=== PATIENT | female | born 1985 | race Caucasian/White ===

== ENCOUNTER → 2017-12-29 13:58 | Outpatient (CLI) | payer MEDICAID, SELFPAY ==
--- NOTE | 2017-12-29 14:07 | RAD_ITS ---
STUDY: X-RAY - LUMBAR SPINE REASON FOR EXAM: Female, 32 years old. Trauma 3-4 weeks ago, low back pain TECHNIQUE: 6 view(s) of the lumbar spine were obtained. COMPARISON: None FINDINGS: Normal lumbar lordosis. There is no substantial scoliosis. There is a normal alignment of the vertebrae. Normal vertebral bodies and endplates. Normal disc space heights. The soft tissue structures are unremarkable. RAD/L/S Spine Min 4 Views IMPRESSION: Normal x-ray examination of the lumbar spine. Electronically Signed: Herman Ty MD at 22:12 EDT , Service support ,
== END ==
PROVIDERS: Family Provider Family Medicine; PCP Family Medicine; Visit Provider Anesthesiology Pain Medicine
DX: M54.5 Low back pain (principal); M79.604 Pain in right leg; W19.XXXA Unspecified fall, initial encounter
CPT/HCPCS: 72110

== ENCOUNTER → 2018-02-09 13:43 | Outpatient (CLI) | payer MEDICAID, SELFPAY ==
--- NOTE | 2018-02-09 13:54 | MRI_ITS ---
STUDY: MRI LUMBAR SPINE WITHOUT CONTRAST REASON FOR EXAM: Female, 32 years old. Low back pain and radiating to right leg TECHNIQUE: Standardized fat and water weighted pulse sequences were obtained in the sagittal and axial planes. COMPARISON: None FINDINGS: T12-L1: Normal endplates. Normal disc height, hydration and morphology. Normal bilateral facet joints. Normal central canal and bilateral lateral recesses. Normal bilateral intervertebral neural foramina. Normal lumbar lordosis. There is no substantial scoliosis. Normal conus medullaris that terminates at T12-L1 L1-2: Normal endplates. Normal disc height, hydration and morphology. Normal bilateral facet joints. Normal central canal and bilateral lateral recesses. Normal bilateral intervertebral neural foramina. L2-3: Normal endplates. Normal disc height, hydration and morphology. Normal bilateral facet joints. Normal central canal and bilateral lateral recesses. Normal bilateral intervertebral neural foramina. L3-4: Normal endplates. Normal disc height, hydration and morphology. Normal bilateral facet joints. Normal central canal and bilateral lateral recesses. Normal bilateral intervertebral neural foramina. L4-5: Normal endplates. Normal disc height, hydration and morphology. Bilateral facet arthropathy.. Normal central canal and bilateral lateral recesses. Normal bilateral intervertebral neural foramina. L5-S1: Normal endplates. Normal disc height, desiccation and mild annular bulge in association with a broad-based small central disc protrusion mildly displacing the descending nerve roots bilaterally.. Bilateral facet arthropathy.. Mildly narrowed central canal Mild bilateral recess stenosis normal bilateral intervertebral neural foramina. Normal visualized sacral ala. Normal visualized paraspinous soft tissue structures. MRI/Spine Lumbar (Routine) IMPRESSION: Mild spinal stenosis at L5-S1 secondary to mild annular bulge and small broad-based central disc protrusion mildly displacing the descending S1 nerve roots in association with facet arthropathy.. Electronically Signed: Lonnie Wolff MD at 16:01 EDT , Service support ,
== END ==
PROVIDERS: Family Provider Family Medicine; PCP Family Medicine; Visit Provider Anesthesiology Pain Medicine
DX: M51.26 Other intervertebral disc displacement, lumbar region (principal); M54.17 Radiculopathy, lumbosacral region; M51.36 Other intervertebral disc degeneration, lumbar region; M48.07 Spinal stenosis, lumbosacral region; M79.604 Pain in right leg
CPT/HCPCS: 72148

== ENCOUNTER → 2019-02-04 13:26 | Outpatient (CLI) | payer MEDICAID, SELFPAY ==
--- NOTE | 2019-02-04 13:35 | VDLE_ITS ---
Reason For Study: Pain in left calf Procedure LEFT Exam performed in department. GSV is normal. A preliminary report was called and/or faxed CFV is compressible, spontaneous, phasic, to [place]nam[place]. competent, and demonstrates normal augmentation. FV is compressible, spontaneous, phasic, competent and demonstrates normal augmentation. POP V is compressible, spontaneous, phasic, competent and demonstrates normal augmentation. T/P Trunk is compressible. PTV is compressible. LT PerV is compressible. Interpretation Summary Deep veins of the left lower extremity are patent and compressible segmentally. There is no evidence of left lower extremity deep vein thrombosis. Valvular competence appears intact within the proximal deep venous system on the left . The left greater saphenous vein appears patent and compressible segmentally. Ordering Physician: Haritha Yin Referring Physician: MD Marquise Breaux Performed By: Elisa Romero RVT
== END ==
PROVIDERS: Family Provider Family Medicine; PCP Family Medicine; Referring Provider Physician Assistant; Visit Provider Physician Assistant
DX: M79.662 Pain in left lower leg (principal)
CPT/HCPCS: 93971

== ENCOUNTER → 2023-07-16 | Outpatient (CLI) | payer OTHER, SELFPAY ==
--- NOTE | 2023-07-16 10:06 | MRI_ITS ---
MRI/Spine Lumbar W/WO Contrast IMPRESSION: No evidence for acute fracture or other significant bony pathology. Postsurgical changes at L5-S1 Facet arthropathy at L3-4 and L4-5. No significant disc protrusion or spinal stenosis No enhancing lesions following contrast administration Electronically Signed: Lnonie Wolff MD at 20:31 EDT ,
== END | disposition home or self-care (01) ==
LOC: MRI 09:53
PROVIDERS: Referring Provider Orthopaedic Surgery; Visit Provider Orthopaedic Surgery
DX: Z98.1 Arthrodesis status (principal)
CPT/HCPCS: 72158; A9575

== ENCOUNTER → 2025-08-03 | Outpatient (CLI) | payer OTHER, SELFPAY ==
[2025-08-03 10:26] LABS: Hematocrit 45.6 % (37-47); Hemoglobin 16.0 g/dL (12.0-15.0); Immature Granulocytes Count 0.010 X10^3/uL (0.0-0.0); Mean Corp Hgb Conc 35.1 g/dL (32-36); Mean Corpuscular Volume 88.4 fL (81-99); Mean Platelet Vol. 9.4 fl (6.2-12.0); NRBC Flagged by Analyzer 0 % (0-5); Platelet Count 254 K/mm3 (150-450); RBC Distribution Width CV 12.1 % (11.6-14.6); RBC Distribution Width SD 39.2 fl (35.1-43.9); Red Blood Count 5.16 M/mm3 (4.2-5.4); White Blood Count 8.0 K/mm3 (4.4-11.0)
[2025-08-03 11:12] LABS: Barbiturate Urine NEGATIVE (< 200 ng/mL); Benzodiazepine Urine NEGATIVE (< 200 ng/mL); PCP Urine NEGATIVE (< 25 ng/mL); THC Urine NEGATIVE (< 50 ng/mL)
[2025-08-03 11:15] LABS: AST(SGOT) 22 U/L (<=31); Alanine Aminotransfer ALT/SGPT 24 U/L (<=34); Albumin, Serum 4.4 g/dL (3.5-5.0); Alkaline Phosphatase 69 U/L (35-104); Anion Gap 10 (5-15); BUN 7 mg/dL (4-19); BUN/Creat Ratio 8.7 RATIO (10-20); Calcium,Total 9.3 mg/dL (7.6-11.0); Carbon Dioxide 24.5 mmol/L (21.0-32.0); Chloride 105 mmol/L (98-108); Globulin 2.8 g/dL (2.2-4.2); Glucose 102 mg/dL (70-99); Potassium 4.1 mmol/L (3.3-5.1); Vitamin B12 838 pg/mL (180-914)
[2025-08-03 11:16] LABS: CRP < 3.00 mg/L (0.0-3.0); Magnesium 2.3 mg/dL (1.5-2.2)
[2025-08-04 16:09] LABS: Folate, Hemolysate Test 305.0 ng/mL (Not Estab.); Folate, RBC (Hct) Test 48.3 % (34.0-46.6); Folates, RBC Test 631 ng/mL (>498)
[2025-08-07 14:09] LABS: ANTINUCLEAR ANTIBODIES DIRECT Negative (Negative); Vitamin D 1,25-Dihydroxy 31.1 pg/mL (24.8-81.5)
== END | disposition home or self-care (01) ==
LOC: MTLAB 09:13
DX: R40.4 Transient alteration of awareness (principal); R41.3 Other amnesia; M79.7 Fibromyalgia; G43.909 Migraine, unspecified, not intractable, without status migrainosus
CPT/HCPCS: 36415; 80053; 80307; 82607; 82652; 82747; 83605; 83735; 84443; 85014; 85025; 85652; 86038; 86140; 86225

== ENCOUNTER → 2025-08-04 | Outpatient (CLI) | payer OTHER, SELFPAY ==
--- NOTE | 2025-08-04 08:49 | BI_ITS ---
EXAM: DIAG MAMM W/CAD, BILAT; BREAST LIMITED UNILATERAL; BILAT BRST SARABJIT STAND ALONE 08/04/2025 CLINICAL HISTORY: F, Age 40 y/o , ABD MAMM; PAIN TECHNIQUE: Procedure Code: [id number]; USBRSTLIMIT; BIBILATBRTOM Modality: MG; US Procedure: DIAG MAMM W/CAD, BILAT; BREAST LIMITED UNILATERAL; BILAT BRST SARABJIT STAND ALONE. COMPARISON: Baseline examination, no priors. FINDINGS: MAMMOGRAM: TISSUE DENSITY: There are scattered areas of fibroglandular density. Bilateral Breast Mammographic Findings: The patient presents with pain in the lateral breast bilaterally. On the present examination, there are no suspicious mammographic findings in the lateral breast bilaterally to account for the patient's pain. Otherwise, there are no significant masses, calcifications or other abnormalities are identified. ULTRASOUND: Ultrasound performed of the lateral breast bilaterally demonstrate no suspicious sonographic findings in the area of patient's pain. There are no suspicious masses or abnormal cystic elements. BI/Bilat Brst Sarabjit Stand Alone IMPRESSION: There are no suspicious mammographic or sonographic findings in the area of pat ient's pain bilaterally. Clinical management is recommended for the pain. There is no evidence of malignancy in either breast. OVERALL FINAL ASSESSMENT BI-RADS 1: NEGATIVE RECOMMENDATION: Routine annual follow-up in 1 Year Additional Recommendation none A letter with findings and recommendations will be mailed to the patient. Reading Location: [id number]
--- NOTE | 2025-08-04 08:49 | BI_ITS ---
EXAM: DIAG MAMM W/CAD, BILAT; BREAST LIMITED UNILATERAL; BILAT BRST SARABJIT STAND ALONE 08/04/2025 CLINICAL HISTORY: F, Age 40 y/o , ABD MAMM; PAIN TECHNIQUE: Procedure Code: [id number]; USBRSTLIMIT; BIBILATBRTOM Modality: MG; US Procedure: DIAG MAMM W/CAD, BILAT; BREAST LIMITED UNILATERAL; BILAT BRST SARABJIT STAND ALONE. COMPARISON: Baseline examination, no priors. FINDINGS: MAMMOGRAM: TISSUE DENSITY: There are scattered areas of fibroglandular density. Bilateral Breast Mammographic Findings: The patient presents with pain in the lateral breast bilaterally. On the present examination, there are no suspicious mammographic findings in the lateral breast bilaterally to account for the patient's pain. Otherwise, there are no significant masses, calcifications or other abnormalities are identified. ULTRASOUND: Ultrasound performed of the lateral breast bilaterally demonstrate no suspicious sonographic findings in the area of patient's pain. There are no suspicious masses or abnormal cystic elements. BI/DIAG MAMM W/CAD, BILAT IMPRESSION: There are no suspicious mammographic or sonographic findings in the area of pat ient's pain bilaterally. Clinical management is recommended for the pain. There is no evidence of malignancy in either breast. OVERALL FINAL ASSESSMENT BI-RADS 1: NEGATIVE RECOMMENDATION: Routine annual follow-up in 1 Year Additional Recommendation none A letter with findings and recommendations will be mailed to the patient. Reading Location: [id number]
--- NOTE | 2025-08-04 10:07 | US_ITS ---
EXAM: DIAG MAMM W/CAD, BILAT; BREAST LIMITED UNILATERAL; BILAT BRST SARABJIT STAND ALONE 08/04/2025 CLINICAL HISTORY: F, Age 40 y/o , ABD MAMM; PAIN TECHNIQUE: Procedure Code: [id number]; USBRSTLIMIT; BIBILATBRTOM Modality: MG; US Procedure: DIAG MAMM W/CAD, BILAT; BREAST LIMITED UNILATERAL; BILAT BRST SARABJIT STAND ALONE. COMPARISON: Baseline examination, no priors. FINDINGS: MAMMOGRAM: TISSUE DENSITY: There are scattered areas of fibroglandular density. Bilateral Breast Mammographic Findings: The patient presents with pain in the lateral breast bilaterally. On the present examination, there are no suspicious mammographic findings in the lateral breast bilaterally to account for the patient's pain. Otherwise, there are no significant masses, calcifications or other abnormalities are identified. ULTRASOUND: Ultrasound performed of the lateral breast bilaterally demonstrate no suspicious sonographic findings in the area of patient's pain. There are no suspicious masses or abnormal cystic elements. US/Breast Limited Unilateral IMPRESSION: There are no suspicious mammographic or sonographic findings in the area of pat ient's pain bilaterally. Clinical management is recommended for the pain. There is no evidence of malignancy in either breast. OVERALL FINAL ASSESSMENT BI-RADS 1: NEGATIVE RECOMMENDATION: Routine annual follow-up in 1 Year Additional Recommendation none A letter with findings and recommendations will be mailed to the patient. Reading Location: [id number]
== END | disposition home or self-care (01) ==
LOC: OPBI 08:44
DX: R92.8 Other abnormal and inconclusive findings on diagnostic imaging of breast (principal); N64.4 Mastodynia
CPT/HCPCS: 76642; 77062; 77066; G0279

== ENCOUNTER → 2025-08-21 | Outpatient (CLI) | payer OTHER, SELFPAY | END | disposition home or self-care (01) | LOC: PSN 07:56 | DX: R41.3 Other amnesia (principal); R40.4 Transient alteration of awareness | CPT/HCPCS: 95819 ==

== ENCOUNTER → 2025-08-22 | Outpatient (CLI) | payer OTHER, SELFPAY ==
--- NOTE | 2025-08-22 06:41 | MRI_ITS ---
PROCEDURE: BRAIN W/WO CONTRAST 08/22/2025 REASON FOR EXAM: STARING EPISODES, MEMORY CHANGE TECHNIQUE: Procedure Code: [id number] Modality: MR Procedure: BRAIN W/WO CONTRAST Multiplanar and multisequence images were obtained. CONTRAST: Clariscan VOLUME: 70 mL COMPARISON: None. FINDINGS: Brain: Two or three foci of hyperintense signal on T2 and FLAIR in the right frontal lobe which are nonspecific. No restricted diffusion. No hemorrhage. No masses. No abnormal enhancement. The medial temporal lobes are within normal limits. No evidence of mesial temporal sclerosis. The craniocervical junction is unremarkable. The orbits are within normal limits. Diffusion: No restricted diffusion Ventricles: No ventriculomegaly. Major Intracranial Vessels: Patent. Sinuses: Clear. Mastoids: Clear. MRI/Brain W/WO Contrast IMPRESSION: Two or three foci of hyperintense signal on T2 and FLAIR in the right frontal l obe which are nonspecific. The differential diagnosis includes but not exclusive to vasculitis, chronic sm all-vessel ischemia, migraines, infection or demyelinating disease. No restricted diffusion. No hemorrhage. No masses. No abnormal enhancement. Reading Location: [facility]
--- OUTSIDE RECORDS SUMMARY | 2025-08-22 07:07 | XMS RPT_ITS | CCD ---
Author Organization [facility] Care Team Providers Care Business Continuity Management Director Name Role Phone Lindsay'CHIKA, HIRA Attending Unavailable D'CHIKA, HIRA Referring Unavailable D'CHIKA, HIRA Attending Unavailable D'CHIKA, HIRA Referring Unavailable Gregory Mcguire Attending Unavailable PROVIDER, UNKNOWN Referring Unavailable Adams Oh Primary Care Unavailable Gregory Mcguire Attending Unavailable PROVIDER, UNKNOWN Referring Unavailable Adams Oh Primary Care Unavailable Jeane TYSON, Hortensia Monzon Unavailable [phone] Dr. Dwayne Christopher MD Unavailable Pain Management Provider Unavailable Unavail able Physical Therapy, Tk Brewer Unavailable Dr. Aris Gonzalez MD Unavailable Dr. Jaden Hawk MD Unavailable Dr. Sean Reynoso MD Unavailable [phone] [place] Unavailable Cecil TYSON, Dr. Hortensia Herring Unavailable Jeffrey Eason MD Unavailable Contract Implementation Analyst/Gynecology Prov. Unavailable Un available Neurology Provider Unavailable Unavailable Moon TYSON, Suma Garcia Unavailable Cornell PIMENTEL, Jigna Unavailable Masoud VELAZQUEZ, Khushbu Sloan Unavailable [phone] Shabbir PIMENTEL, Sadaf Unavailable Unavailable Marty TYSON, Willy Ruffin Unavailable Gale Banda MA Unavailable Unavailable Gogoi (scribe), Hemanta Unavailable Unavaila eben Robles LPN, Hira Unavailable Unavailable Adams Oh MD Unavailable Preethi Burt MA Unavailable Unavailable EVENT DECORATOR AND DESIGNER-C, Chace Khan Unavailable Maria LUEVANO, Vielka Monzon Unavailable Unavaila ble Marthey ENVIRONMENTAL COMPLIANCE TECHNICIAN, Ve Unavailable Unavailable Carlos (Scribe), Grant Unavailable Unavailab lino Reynoso RN, Sabrina Unavailable Mutersbaugh ENVIRONMENTAL COMPLIANCE TECHNICIAN, Olga K Unavailable Unavai filomena English PA-C, Mery J Unavailable Dg (Scribe), Pedro Unavailable Unavailab le Richert ENVIRONMENTAL COMPLIANCE TECHNICIAN, Yecenia Zuleyka Unavailable Unavailab le Sisi ENVIRONMENTAL COMPLIANCE TECHNICIAN, Suma Herring Unavailable Unavailab le Liseth ENVIRONMENTAL COMPLIANCE TECHNICIAN, Prachi Charles Unavailable Unavailab le Vess ENVIRONMENTAL COMPLIANCE TECHNICIAN, Jose L Unavailable Unavailable Wengerd ENVIRONMENTAL COMPLIANCE TECHNICIAN, Lucrecia Unavailable Unavailabl e Carmen ENVIRONMENTAL COMPLIANCE TECHNICIAN, Candy Grant Unavailable Unavaila ble Unavailable Unavailable Marco Antonio CRUZ, Nora Unavailable Unavailable Meredith, Khushbu Primary Care Unavailable Matilda Ochoa Attending Unavailable Matilda Ochoa Referring Unavailable Meredith, Khushbu Primary Care Unavailable Matilda Ochoa Attending Unavailable NeridnerMatilda Referring Unavailable Meredith, Khushbu Referring Unavailable BordnerMatilda Attending Unavailable Meredith, Khushbu Primary Care Unavailable Meredith, Khushbu Referring Unavailable Martin Almodovar Attending Unavailable Meredith, Khushbu Primary Care Unavailable Meredith, Khushbu Primary Care Unavailable Meredith, Khushbu Attending Unavailable Meredith, Khushbu Referring Unavailable Meredith, Khushbu Primary Care Unavailable NeridnMatilda pierre Attending Unavailable NeridnerMatilda Referring Unavailable Allergies Allergy Classification Reported Allergen(s) Allergy Type Date of Onset Reaction(s) Facility (13 sources) Amoxicillin / Clavulanate Drug Allergy Soft Tissue Regeneration [facility], [facility] (13 sources) Cephalexin Drug Allergy [facility] (3 sources) Shellfish [facility] (1 source) [facility] (1 source) [facility] (1 source) [facility] (1 source) [facility] (1 source) [employer] [facility] (1 source) [facility] [facility] [employer] (1 source) [employer] [employer] (1 source) [employer] (1 source) [employer] (1 source) [employer] (1 source) Amoxicillin Drug Allergy 5 [facility] (1 source) Cephalexin Drug Allergy 5 [facility] (1 source) Clavulanate Drug Allergy 5 [facility] (1 source) Shellfish Drug allergy (disorder) 5 [facility] (1 source) Seasonal Allergies: Uncoded; Translations: [Seasonal Allergies: Uncoded] Propensity to adverse reactions (disorder) 5 [facility] Medications Current Medications Medication Drug Class(es) Dates Sig (Normalized) Sig (Original) [id number] 200 actuat albuterol 0.09 mg/actuat metered dose inhaler (20 sources) beta2-Adrenergic Agonist Start: 12-28-2024 Start: 02-24-2023 Ventolin HFA 1 08 (90 Base) MCG/ACT Inhalation Aerosol Solution ; 1 (one) Aerosol Soln 2 puffs every four hours as needed for 0 days Quantity: 1 {Each} Refills: 11 Ordered: 24-Feb-2023 MARCUS Meredith Start: 24-Feb-2023 Comments: Medication taken as needed. 1 inhaler Start: 04-09-2015 End: 04-09-2015 Start: 04-09-2015 End: 04-09-2015 PROVENTIL HFA, 108 (90 Base) MCG/ACT (Inhalation Aerosol Solution) ; 2 (two) Aerosol Soln q4h, prn for 0 days Quantity: 1 {Inhaler} Refills: 5 Ordered: 09-Apr-2015 LOREN Sarabia Start: 09-Apr-2015 End: 09-Apr-2015 Status: Discontinued Comment on above: Medication taken as needed. 1 inhaler Completed/Discontinued Medications Medication Drug Class(es) Dates Sig (Normalized) Sig (Original) 8 hr acetaminophen 650 mg extended release oral tablet (16 sources) Start: 06-09-2017 End: 03-16-2018 acetaminophen 325 mg / HYDRO codone bitartrate 5 mg oral tablet (20 sources) Opioid Agonist Start: 07-23-2023 End: 01-08-2024 Start: 07-23-2023 End: 01-08-2024 HYDROcodone 5 mg-acetaminoph en 325 mg tablet ; 1 (one) Tablet q4-6h, prn severe pain for 0 days Quantity: 10 {Tablet} Refills: 0 Ordered: 08-Jan-2024 LOREN Sarabia Start: 23-Jul-2023 End: 08-Jan-2024 Status: Discontinued Comments: Faiza Cervantes Start: 05-21-2015 End: 06-20-2015 Start: 05-21-2015 End: 06-20-2015 take 1 tablet by mouth every four hours as needed for pain HYDROCODONE-ACETAMINOPHEN, 5-325MG (Oral Tablet) ; 1 (one) Tablet q4h, prn severe pain for 0 days Quantity: 20 {Tablet} Refills: 0 Ordered: 20-Jun-2015 MD Hortensia Ching Start: 21-May-2015 End: 20-Jun-2015 Status: Inactive Comments: carlito 05/21/15patient moss picker rx Comment on above: oacharlis 05/21/15patient moss picker rx Medication taken as needed. prescribed by Dr. Jesus Cervantes acetaminophen 325 mg / oxyCODONE hydrochloride 5 mg oral tablet (13 sources) Opioid Agonist Start: 04-27-2014 End: 06-08-2014 Start: 04-27-2014 End: 06-08-2014 take 1 tablet by mouth every four hours as needed for pain OXYCODONE-ACETAMINOPHEN, 5-325MG (Oral Tablet) ; 1 (one) Tablet every four hours PRN severe pain for 0 days Quantity: 12 {Tablet} Refills: 0 Ordered: 08-Jun-2014 LOREN Shannon Start: 27-Apr-2014 End: 08-Jun-2014 Status: Inactive ALPRAZolam 0.5 mg oral table t (13 sources) Benzodiazepine Start: 03-03-2023 End: 04-28-2023 Comment on above: Medication taken as needed. No OARRS - acute treatment amitriptyline hydrochloride 25 mg oral tablet (13 sources) Tricyclic Antidepressant Start: 12-28-2018 End: 12-14-2020 amoxicillin 500 mg oral tabl et (13 sources) Penicillin-class Antibacterial Start: 08-17-2015 End: 08-27-2015 Antipyrine / Benzocaine (13 sources) Standardized Chemical Allergen Start: 06-08-2014 End: 10-23-2014 Start: 06-08-2014 End: 10-23-2014 ANTIPYRINE-BENZOCAINE, 5.4-1 .4% (Otic Solution) ; 2-4 Drop(s) Drop(s) Four times daily as needed for ear pain for 10 days Quantity: 5 {Milliliter} Refills: 1 Ordered: 23-Oct-2014 LOREN Sarabia Start: 08-Jun-2014 End: 23-Oct-2014 Status: Inactive Comments: Medication taken as needed. Comment on above: Medication taken as needed. aspirin 325 mg / butalbital 50 mg / caffeine 40 mg oral capsule (13 sources) Platelet Aggregation Inhibitor, Barbiturate, Nonsteroidal Anti-inflammatory Drug, Central Nervous System Stimulant, Methylxanthine Start: 11-14-2015 End: 02-20-2016 Start: 11-14-2015 End: 02-20-2016 take 1 capsule by mouth every two hours FIORINAL, 50-325-40MG (Oral Capsule) ; 1 (one) Capsule at onset of headache, repeat in 2 hrs in needed. for 0 days Quantity: 30 {Capsule} Refills: 0 Ordered: 20-Feb-2016 LOREN Sarabia Start: 14-Nov-2015 End: 20-Feb-2016 Status: Inactive Comments: Maximum 6 in 24 hoursWM Comment on above: Maximum 6 in 24 hour sWM Azithromycin (20 sources) Macrolide Antimicrobial Start: 07-06-2023 End: 01-08-2024 Start: 07-06-2023 End: 01-08-2024 Zithromax Z-Dante 250 mg table t ; 2 (two) Tabs day one, then one daily for 4 days for 0 days Quantity: 1 {Packet} Refills: 0 Ordered: 08-Jan-2024 LOREN Sarabia Start: 06-Jul-2023 End: 08-Jan-2024 Status: Inactive Start: 05-17-2018 End: 05-20-2018 Start: 08-22-2014 End: 09-14-2014 Start: 09-16-2010 End: 10-14-2010 Start: 09-16-2010 End: 10-14-2010 ZITHROMAX Z-DANTE, 250MG (Oral Tablet) ; 2 (two) Tabs day one, then one daily for 4 days for 0 days Quantity: 1 {Z-pack} Refills: 0 Ordered: 14-Oct-2010 LOREN Sarabia Start: 16-Sep-2010 End: 14-Oct-2010 Status: Inactive baclofen 10 mg oral tablet (13 sources) gamma-Aminobutyric Acid-ergic Agonist breath-actuated 120 actuat beclomethasone dipropionate 0.08 mg/actuat metered dose inhaler (13 sources) Corticosteroid End: 12-30-2010 End: 12-30-2010 take 2 puff(s) by inhalation once daily QVAR, 80MCG/ACT (Inhalation Aerosol Solution) ; 2 puffs daily (80 MCG/ACT) End: 30-Dec-2010 Status: Discontinued bifidobacterium animalis 160 [id number] unt / lactobacillus acidophilus [id number] unt oral capsule (13 sources) Start: 03-16-2018 End: 10-19-2018 Start: 03-16-2018 End: 10-19-2018 take 1 capsule by mouth twice daily at mealtime Probiotic Oral Capsule ; 1 (one) Capsule Capsule two times daily with meals for 0 days Quantity: 1 {Box} Refills: 5 Ordered: 19-Oct-2018 CHLOÉ Sifuentes Start: 16-Mar-2018 End: 19-Oct-2018 Status: Inactive Comments: If not covered by insurance, recommend low cost OTC option Comment on above: If not covered by in surance, recommend low cost OTC option 24 hr buPROPion hydrochlorid e 150 mg extended release oral tablet (20 sources) Aminoketone Start: 10-19-2018 End: 12-14-2020 Start: 11-04-2013 End: 06-08-2014 Comment on above: Note to pharmacist: lowering bupropion dose to add escitalopram cetirizine hydrochloride 10 mg oral tablet (20 sources) Histamine-1 Receptor Antagonist Start: 02-02-2018 End: 10-19-2018 Start: 12-10-2015 End: 04-09-2017 cholecalciferol 0.01 mg oral tablet (13 sources) Vitamin D Start: 02-02-2018 End: 05-23-2021 ciprofloxacin 250 mg oral ta blet (20 sources) Quinolone Antimicrobial Start: 07-01-2021 End: 07-11-2021 Start: 02-25-2019 End: 03-07-2019 Start: 09-21-2017 End: 09-24-2017 Start: 05-12-2017 End: 05-17-2017 citalopram 20 mg oral tablet (13 sources) Serotonin Reuptake Inhibitor Start: 11-16-2012 End: 10-31-2013 clindamycin 300 mg oral caps ule (13 sources) Lincosamide Antibacterial Start: 09-30-2016 End: 10-10-2016 clomiPHENE citrate 50 mg ora l tablet (13 sources) Estrogen Agonist/Antagonist Start: 06-21-2010 End: 06-26-2010 codeine phosphate 2 mg/ml / promethazine hydrochloride 1.25 mg/ml oral solution (13 sources) Opioid Agonist, Phenothiazine Start: 02-25-2019 End: 04-11-2019 Start: 02-25-2019 End: 04-11-2019 take 1 mL by mouth once daily at bedtime Promethazine-Codeine 6.25-10 MG/5ML Oral Syrup ; 10(ten) Milliliter qhs for 0 days Quantity: 70 {Milliliter} Refills: 0 Ordered: 11-Apr-2019 LOREN Childers Prachi Charles Start: 25-Feb-2019 End: 11-Apr-2019 Status: Inactive Comments: Causes drowsinessDo not drive within 4 hours of dose Comment on above: Causes drowsinessDo not drive within 4 hours of dose cyclobenzaprine hydrochlorid e 10 mg oral tablet (20 sources) Muscle Relaxant Start: 05-23-2021 End: 07-01-2021 Start: 07-03-2016 End: 11-20-2016 Comment on above: may cause drowsiness dicyclomine hydrochloride 10 mg oral capsule (13 sources) Anticholinergic Start: 07-21-2014 End: 10-23-2014 diphenhydrAMINE (13 sources) Histamine-1 Receptor Antagonist Benadryl Allergy ; 2 two times daily Status: Inactive doxycycline hyclate 100 mg oral capsule (13 sources) Tetracycline-class Drug Start: 10-25-2012 End: 11-01-2012 DULoxetine 30 mg delayed release oral capsule (20 sources) Serotonin and Norepinephrine Reuptake Inhibitor Start: 07-30-2017 End: 10-19-2018 Start: 05-12-2014 End: 10-23-2014 Comment on above: Note to pharmacist: new dosage, cancel old 20mg escitalopram 10 mg oral tabl et (13 sources) Serotonin Reuptake Inhibitor Start: 10-19-2018 End: 12-14-2020 fexofenadine hydrochloride 1 80 mg oral tablet (13 sources) Histamine-1 Receptor Antagonist Start: 11-20-2016 End: 11-20-2016 fluconazole 150 mg oral tabl et (13 sources) Azole Antifungal Start: 05-29-2011 End: 06-30-2011 FLUoxetine 20 mg oral capsul e (13 sources) Serotonin Reuptake Inhibitor End: 12-30-2010 60 actuat fluticasone propionate 0.25 mg/actuat dry powder inhaler (20 sources) Corticosteroid Start: 10-23-2014 End: 04-09-2015 Start: 10-23-2014 End: 04-09-2015 FLOVENT DISKUS, 250MCG/BLIST (Inhalation Aerosol Powder Breath Activated) ; 1 (one) Aero Pow Br Act Aero Pow Br Act daily for 0 days Quantity: 1 {Disk} Refills: 11 Ordered: 09-Apr-2015 LOREN Sarabia Start: 23-Oct-2014 End: 09-Apr-2015 Status: Discontinued Start: 06-08-2014 End: 04-09-2015 gabapentin 100 mg oral capsu le (20 sources) Anti-epileptic Agent Start: 06-10-2018 End: 12-14-2020 End: 09-14-2015 End: 09-14-2015 take 1-2 capsules by mouth at bedtime GABAPENTIN, 400MG (Oral Capsule) ; 1-2 at bedtime (400 MG) End: 14-Sep-2015 Status: Discontinued Comments: neuro Comment on above: neuro hydrOXYzine pamoate 25 mg or al capsule (13 sources) Antihistamine End: 12-30-2010 hyoscyamine sulfate 0.125 mg oral tablet (13 sources) Start: 07-14-2016 End: 11-20-2016 ibuprofen 600 mg oral tablet (13 sources) Nonsteroidal Anti-inflammatory Drug Start: 12-30-2016 End: 04-09-2017 ketoconazole 20 mg/ml medica piotr shampoo (13 sources) Azole Antifungal Start: 10-01-2011 End: 01-29-2012 Start: 10-01-2011 End: 01-29-2012 KETOCONAZOLE, 2% (External S hampoo) ; 1 Shampoo twice weekly for 0 days Quantity: 6 {oz} Refills: 3 Ordered: 29-Jan-2012 LOREN Shannon Start: 01-Oct-2011 End: 29-Jan-2012 Status: Inactive lamoTRIgine 25 mg oral table t (20 sources) Mood Stabilizer, Anti-epileptic Agent Start: 04-27-2014 End: 04-27-2014 Start: 03-30-2014 End: 04-17-2014 levETIRAcetam 250 mg oral ta blet (13 sources) Start: 06-20-2015 End: 09-14-2015 magnesium citrate 58.2 mg/ml oral solution (13 sources) Start: 04-09-2017 End: 03-16-2018 malathion 5 mg/ml topical lo tion (13 sources) Start: 11-06-2016 End: 11-20-2016 Start: 11-06-2016 End: 11-20-2016 Malathion 0.5 % External Lot ion ; 1 (one) Lotion Lotion apply as directed for 0 days Quantity: 1 {Bottle} Refills: 0 Ordered: 20-Nov-2016 MD Hortensia Ching Start: 06-Nov-2016 End: 20-Nov-2016 Status: Discontinued meloxicam 15 mg oral tablet (20 sources) Nonsteroidal Anti-inflammatory Drug Start: 04-09-2015 End: 05-11-2015 take 1 tablet by mouth once daily MELOXICAM, 15MG (Oral Tablet) ; 1 Tablet daily for 0 days Quantity: 30 {Tablet} Refills: 5 Ordered: 11-May-2015 LOREN Sarabia Start: 09-Apr-2015 End: 11-May-2015 Status: Inactive methylPREDNISolone (13 sources) Corticosteroid Start: 11-11-2012 End: 11-17-2012 Start: 11-11-2012 End: 11-17-2012 MEDROL (DANTE), 4MG (Oral Tabl et) ; 1 Tablet as directed on pack for 6 days Quantity: 1 {dose_pack} Refills: 0 Ordered: 11-Nov-2012 Liseth, LOREN Prachi Charles Start: 11-Nov-2012 End: 17-Nov-2012 Status: Inactive nabumetone 500 mg oral table t (13 sources) Nonsteroidal Anti-inflammatory Drug Start: 04-11-2015 End: 06-20-2015 24 hr nicotine 0.583 mg/hr transdermal system (13 sources) Cholinergic Nicotinic Agonist Start: 10-14-2010 End: 05-29-2011 Start: 10-14-2010 End: 05-29-2011 apply 1 dose transdermal route once daily NICOTINE, 14MG/24HR (Transdermal Patch 24 Hour) ; 1 Patch 24HR daily for 0 days Quantity: 14 {Patch_24HR} Refills: 1 Ordered: 29-May-2011 LOREN Shannon Start: 14-Oct-2010 End: 29-May-2011 Status: Inactive ondansetron 4 mg oral tablet (13 sources) Serotonin-3 Receptor Antagonist Start: 11-04-2011 End: 01-29-2012 Start: 11-04-2011 End: 01-29-2012 take 1 tablet by mouth every four to six hours as needed for nausea ZOFRAN, 4MG (Oral Tablet) ; 1 Tablet every 4-6 hours as needed for nausea for 0 days Quantity: 15 {Tablet} Refills: 0 Ordered: 29-Jan-2012 LOREN Shannon Start: 04-Nov-2011 End: 29-Jan-2012 Status: Inactive Comments: Medication taken as needed. Comment on above: Medication taken as needed. oseltamivir 75 mg oral albinou le (13 sources) Neuraminidase Inhibitor Start: 11-02-2018 End: 12-28-2018 Polyethylene Glycols (13 sources) Start: 05-12-2017 End: 03-16-2018 Start: 05-12-2017 End: 03-16-2018 Polyethylene Glycol Powder ; 1 (one) capful capful daily for 0 days Quantity: 1 {Can} Refills: 5 Ordered: 16-Mar-2018 CHLOÉ Sifuentes Start: 12-May-2017 End: 16-Mar-2018 Status: Inactive pramipexole dihydrochloride 0.5 mg oral tablet (20 sources) Nonergot Dopamine Agonist Start: 02-02-2014 End: 10-23-2014 Start: 02-02-2014 End: 10-23-2014 take 1 tablet by mouth at bedtime PRAMIPEXOLE DIHYDROCHLORIDE, 0.5MG (Oral Tablet) ; 1 (one) Tablet Tablet at bedtime for 0 days Quantity: 30 {Tablet} Refills: 1 Ordered: 23-Oct-2014 LOREN Sarabia Start: 02-Feb-2014 End: 23-Oct-2014 Status: Inactive Start: 12-21-2013 End: 03-22-2014 Start: 12-21-2013 End: 03-22-2014 take 1 tablet by mouth at bedtime MIRAPEX, 0.25MG (Oral Tablet) ; 1 (one) Tablet Tablet at bedtime for 0 days Quantity: 30 {Tablet} Refills: 1 Ordered: 22-Mar-2014 LOREN Sarabia Start: 21-Dec-2013 End: 22-Mar-2014 Status: Inactive predniSONE 20 mg oral tablet (20 sources) Start: 07-06-2023 End: 01-08-2024 Start: 05-23-2021 End: 07-01-2021 Comment on above: Take 3tabs qd for 3 days thenTake 2tabs qd for 3 days thenTake 1tab qd for 3 days thenTake 1/2tab qd for 4 days. promethazine hydrochloride 2 5 mg rectal suppository (13 sources) Phenothiazine Start: 02-15-2013 End: 10-31-2013 Start: 02-15-2013 End: 10-31-2013 PROMETHAZINE HCL, 25MG (Rect al Suppository) ; 1 Suppository every six hours per rectum PRN nausea for 0 days Quantity: 12 {Suppository} Refills: 0 Ordered: 31-Oct-2013 LOREN Sarabia Start: 15-Feb-2013 End: 31-Oct-2013 Status: Inactive raNITIdine 150 mg oral table t (13 sources) Histamine-2 Receptor Antagonist Start: 03-16-2018 End: 10-19-2018 sertraline 50 mg oral tablet (20 sources) Serotonin Reuptake Inhibitor Start: 04-28-2023 End: 01-03-2025 Start: 08-23-2011 End: 10-29-2012 sulfamethoxazole 800 mg / trimethoprim 160 mg oral tablet (20 sources) Dihydrofolate Reductase Inhibitor Antibacterial, Sulfonamide Antimicrobial Start: 12-28-2018 End: 01-07-2019 Start: 12-28-2018 End: 01-07-2019 take 1 tablet by mouth twice daily Sulfamethoxazole-Trimethoprim 800-160 MG Oral Tablet ; 1 (one) Tablet two times daily for 10 days Quantity: 20 {Tablet} Refills: 0 Ordered: 28-Dec-2018 LOREN Robles Start: 28-Dec-2018 End: 07-Jan-2019 Status: Inactive Start: 04-09-2017 End: 05-07-2017 Start: 04-09-2017 End: 05-07-2017 take 1 tablet by mouth twice daily Bactrim DS 800-160 MG Oral Tablet ; 1 Ta blet bid for 0 days Quantity: 14 {Tablet} Refills: 0 Ordered: 07-May-2017 LOREN Payton Start: 09-Apr-2017 End: 07-May-2017 Status: Inactive SUMAtriptan 25 mg oral table t (20 sources) Serotonin-1b and Serotonin-1d Receptor Agonist Start: 03-22-2014 End: 10-23-2014 Start: 03-22-2014 End: 10-23-2014 IMITREX, 25MG (Oral Tablet) ; 1 (one) Tablet Tablet at onset of pain, repeat x1 in 4 hrs for 0 days Quantity: 10 {Tablet} Refills: 3 Ordered: 23-Oct-2014 LOREN Sarabia Start: 22-Mar-2014 End: 23-Oct-2014 Status: Inactive Start: 10-31-2013 End: 11-04-2013 Imitrex STATdose System ; 1 for severe headache Status: Inactive Comments: neuro Comment on above: neuro Avoid taking Celexa on same day as Sumatriptin if possible[facility] 09/11/13 topiramate 50 mg oral tablet (13 sources) Start: 04-27-2014 End: 06-08-2014 traMADol hydrochloride 50 mg oral tablet (13 sources) Opioid Agonist Start: 04-01-2016 End: 07-03-2016 Comment on above: Medication taken as needed. moss picker traZODone hydrochloride 100 mg oral tablet (20 sources) Serotonin Reuptake Inhibitor Start: 03-27-2023 End: 04-28-2023 Start: 01-28-2016 End: 02-20-2016 Start: 01-28-2016 End: 02-20-2016 take 1 tablet by mouth at bedtime TRAZODONE HCL, 50MG (Oral Tablet) ; 1 (one) Tablet at bedtime for 0 days Quantity: 30 {Tablet} Refills: 5 Ordered: 20-Feb-2016 LOREN Sarabia Start: 28-Jan-2016 End: 20-Feb-2016 Status: Discontinued triamcinolone acetonide 0.05 5 mg/actuat metered dose nasal spray (13 sources) Corticosteroid Start: 11-20-2016 End: 03-16-2018 Comment on above: OK for Nasacort, Rhi nocort, or FLonase may sub zolpidem tartrate 5 mg oral tablet (20 sources) gamma-Aminobutyric Acid-ergic Agonist Start: 02-24-2023 End: 03-03-2023 Start: 07-31-2016 End: 04-09-2017 Comment on above: OARRS 02/24/23 Problems Active Problems Problem Classification Problem Date Documented Da te Episodic/Chronic Abdominal pain (20 sources) Abdominal pain; Translations: [Unspecified abdominal pain] 03-16-2018 Episodic Acute bronchitis (20 sources) Acute bronchitis; Translations: [Acute bronchitis, unspecified] 05-17-2018 Episodic Adjustment disorders (20 sources) Complicated grieving; Translations: [Adjustment disorder with depressed mood] 03-02-2024 Chronic Allergic reactions (13 sources) Eczema; Translations: [Dermatitis, unspecified] 12-25-2014 Episodic Asthma (20 sources) Moderate asthma; Translations: [Unspecified asthma, uncomplicated] 03-02-2024 Chronic Chronic obstructive pulmonary disease and bronchiectasis (20 sources) Bronchitis; Translations: [Bronchitis, not specified as acute or chronic] 03-02-2024 Episodic Delirium, dementia, and amnestic and other cognitive disorders (20 sources) Subacute delirium; Translations: [Delirium due to known physiological condition] 04-11-2019 Chronic Disorders of teeth and jaw (13 sources) Infection of tooth; Translations: [Periapical abscess without sinus] 08-17-2015 Episodic Female infertility (13 sources) Infertility, female, of other specified origin 06-21-2010 Chronic Gastrointestinal hemorrhage (13 sources) Gastrointestinal hemorrhage; Translations: [Hemorrhage of anus and rectum] 07-11-2014 Episodic Genitourinary symptoms and ill-defined conditions (20 sources) Dysuria; Translations: [Dysuria] 07-01-2018 Episodic Headache; including migraine (20 sources) Migraine; Translations: [Migraine, unspecified, not intractable, without status migrainosus] Onset: 03-02-2024 Chronic Headache; including migraine (20 sources) Chronic daily headache; Translations: [Headache] 03-02-2024 Episodic Immunizations and screening for infectious disease (20 sources) Contact with and (suspected) exposure to other viral communicable diseases; Translations: [Contact with or exposure to other viral diseases] 04-11-2019 Episodic Malaise and fatigue (20 sources) Fatigue; Translations: [Other fatigue] 07-31-2016 Episodic Menstrual disorders (20 sources) Excessive or frequent menstruation; Translations: [Absence of menstruation] 01-29-2012 Chronic Mood disorders (20 sources) Depressive disorder; Translations: [Depressive disorder, not elsewhere classified] 10-19-2018 Chronic Mycoses (13 sources) Candidiasis of vulva and vagina 01-06-2011 Episodic Nausea and vomiting (13 sources) Nausea alone 11-04-2011 Episodic Nonmalignant breast conditions (20 sources) Pain of breast; Translations: [Mastodynia] 04-11-2019 Episodic Nutritional deficiencies (20 sources) Vitamin D deficiency; Translations: [Vitamin D deficiency, unspecified] Onset: 03-02-2024 Chronic Other complications of (13 sources) Fundal height high for dates; Translations: [Uterine size-date discrepancy, unspecified trimester] 02-20-2011 Episodic Other complications of (13 sources) Fatigue during ; Translations: [ related exhaustion and fatigue, unspecified trimester] 02-03-2011 Episodic Other complications of (13 sources) Complication of , childbirth and/or the puerperium; Translations: [Smoking (tobacco) complicating , unspecified trimester] 10-14-2010 Episodic Other connective tissue disease (20 sources) Fibromyalgia; Translations: [Fibromyalgia] 03-02-2024 Episodic Other connective tissue disease (20 sources) Muscle weakness; Translations: [Muscle weakness (generalized)] 03-02-2024 Episodic Other connective tissue disease (1 source) Fibromyalgia; Translations: [Fibromyalgia] Onset: Episodic Other ear and sense organ disorders (13 sources) Bilateral earache; Translations: [Otalgia, bilateral] 06-08-2014 Episodic Other gastrointestinal disorders (20 sources) Irritable bowel syndrome characterized by constipation; Translations: [Irritable bowel syndrome with constipation] 03-02-2024 Chronic Other gastrointestinal disorders (20 sources) Chronic constipation; Translations: [Other constipation] 03-02-2024 Episodic Other hereditary and degenerative nervous system conditions (20 sources) Restless legs; Translations: [Restless legs syndrome] 03-02-2024 Chronic Other infections; including parasitic (20 sources) Pediculosis capitis; Translations: [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 humanus capitis] 05-11-2017 Episodic Other lower respiratory disease (13 sources) Difficulty breathing; Translations: [Other abnormalities of breathing] 10-23-2014 Episodic Other lower respiratory disease (13 sources) Lower respiratory tract infection; Translations: [Unspecified acute lower respiratory infection] 08-22-2014 Episodic Other non-traumatic joint disorders (20 sources) Pain in wrist; Translations: [Pain in left wrist] 03-02-2024 Episodic Other non-traumatic joint disorders (20 sources) Multiple joint pain; Translations: [Pain in unspecified joint] 03-02-2024 Episodic Other non-traumatic joint disorders (13 sources) Ankle pain; Translations: [Pain in right ankle and joints of right foot] 02-03-2011 Episodic Other nutritional; endocrine; and metabolic disorders (20 sources) Overweight in adulthood with body mass index of 25 or more but less than 30; Translations: [Body mass index (BMI) 26.0-26.9, adult] 03-02-2024 Episodic Other nutritional; endocrine; and metabolic disorders (20 sources) Overweight; Translations: [Overweight] 05-17-2018 Episodic Other nutritional; endocrine; and metabolic disorders (2 sources) Body mass index 25-29 - overweight; Translations: [Body mass index (BMI) 26.0-26.9, adult] 07-06-2023 Episodic Other and delivery including normal (20 sources) Routine follow-up; Translations: [Supervision of other normal ] 05-29-2011 Episodic Other screening for suspected conditions (not mental disorders or infectious disease) (20 sources) Patient encounter status; Translations: [Encounter for screening for diseases of the blood and blood-forming organs and certain disorders involving the immune mechanism] Onset: 11-21-2014 Episodic Other skin disorders (20 sources) Vesicular eczema; Translations: [Dyshidrosis [pompholyx]] 04-11-2019 Episodic Other skin disorders (13 sources) Disorder of nail; Translations: [Nail disorder, unspecified] 11-28-2013 Episodic Other skin disorders (20 sources) Vitiligo; Translations: [Vitiligo] 12-08-2011 Episodic Other upper respiratory disease (20 sources) Seasonal allergic rhinitis; Translations: [Other seasonal allergic rhinitis] 03-02-2024 Chronic Other upper respiratory disease (13 sources) Allergic rhinitis; Translations: [Allergic rhinitis, unspecified] 12-30-2010 Chronic Other upper respiratory disease (13 sources) Bleeding from nose; Translations: [Epistaxis] 10-14-2010 Episodic Other upper respiratory infections (20 sources) Sinusitis; Translations: [Chronic sinusitis, unspecified] 12-28-2018 Chronic Other upper respiratory infections (20 sources) Recurrent acute sinusitis; Translations: [Acute recurrent maxillary sinusitis] 02-25-2019 Episodic Ovarian cyst (20 sources) Cyst of right ovary; Translations: [Unspecified ovarian cyst, right side] 04-11-2019 Episodic Residual codes; unclassified (20 sources) Disorders of excessive somnolence; Translations: [Hypersomnia, unspecified] 04-11-2019 Chronic Residual codes; unclassified (20 sources) Edema of extremity; Translations: [Localized edema] 04-11-2019 Episodic Residual codes; unclassified (20 sources) Insomnia; Translations: [Insomnia, unspecified] 03-02-2024 Episodic Residual codes; unclassified (13 sources) Tobacco user; Translations: [Tobacco use] 04-11-2019 Episodic Residual codes; unclassified (13 sources) Painful operation scar; Translations: [Pain, unspecified] 12-25-2014 Episodic Residual codes; unclassified (2 sources) Other amnesia; Translations: [Other amnesia] Onset: 5 Episodic Residual codes; unclassified (2 sources) Transient alteration of awareness; Translations: [Transient alteration of awareness] Onset: 5 Episodic Residual codes; unclassified (2 sources) Other specified postprocedural states; Translations: [Other specified postprocedural states] Onset: 9 Spondylosis; intervertebral disc disorders; other back problems (20 sources) Other intervertebral disc displacement, lumbosacral region; Translations: [Disorder of lumbar disc] Onset: 9 03-02-2024 Chronic Spondylosis; intervertebral disc disorders; other back problems (20 sources) Backache; Translations: [Dorsalgia, unspecified] 05-11-2017 Episodic Sprains and strains (20 sources) Sprain of ankle; Translations: [Sprain of unspecified ligament of unspecified ankle, initial encounter] 04-11-2019 Episodic Syncope (6 sources) Syncope; Translations: [Syncope and collapse] 01-03-2025 Episodic Unclassified (3 sources) Number of Children 07-06-2023 Comment on above: 2. Unclassified (3 sources) Number of Pregnancies 07-06-2023 Comment on above: 2. Unclassified (3 sources) Depression (Follow-up) - The last clinic visit was 1 month(s) ago. Management changes made at the last visit include adding medication (started Sertraline 50mg daily). Since diagnosis the disease has been improving (she is able to stay asleep more during the night. Will go to bed about 11pm and will wake up at 6:30 to 7am. She will be getting up little earlier now that daughter is back in school. Does toss and turn due to back pain. She still has trouble falling asleep, will take about 1 hour for her to fall asleep. She is currently working with an benefits specialist regarding her back pain.). Symptoms include depressed mood (she feels this is related a lot to losing her son earlier this year), fatigue (worse around noon to 1pm), headaches (she has chronic headaches and takes Tylenol), irritability (sometimes) and anxiety, while symptoms do not include suicide attempt (she does have suicidal thoughts but she states that these have not gotten worse), poor concentration or appetite change. Note for Depression: Patient feels that her symptoms seem to be gradually improving. She states that some days are still harder than others.Her family had their first family counseling session and she feels that it went well. They will be having their next session this week. 05-25-2023 Unclassified (3 sources) Follow up for multiple chronic conditions - The patient is here for follow-up of asthma, depression and insomnia. The patient always takes the prescribed medications. No side effects noted. The patient has an active lifestyle but no regular exercise program. The patient states that weight is unchanged and mood is unchanged. Note for Multiple chronic conditions follow-up: Patient presents today for follow up regarding increased anxiety and insomnia related to the recent loss of her son. She was started on Ambien and switched to alprazolam. She reports that the alprazolam helps her fall asleep faster, but does not allow her to stay asleep. She continues to get very little sleep at this time. 03-27-2023 Unclassified (3 sources) Cold Symptoms - Symptoms include nasal congestion (has post nasal drainage and clearing throat), runny nose (at times), ear pain (at times), ear fullness and facial pain (sinus pain and pressure, head congestion), but do not include sore throat, scratchy throat, dry cough, productive cough, wheezing, fever or chills. The onset was month(s) ago (1-2 months). The symptoms occur constantly. The patient describes this as moderate in severity and worsening. Current treatment includes allergy medications (Benadryl). Risk factors include smoking. Patient denies history of recurrent sinusitis. Note for Upper respiratory infection: is scheduled for upcoming back surgery 01/20/2019.Did have a bloody nose this past week.Needs refill today. 12-28-2018 Unclassified (3 sources) Follow-up for multiple chronic conditions (RAH) - The patient is here for follow-up of fibromyalgia and other condition(s) (lumbar strain). The patient always takes the prescribed medications. No side effects noted. The patient states that there is no recent angina or dyspnea, there are no vision changes or weakness and they do not have headaches. Note for Multiple chronic conditions follow-up: [facility] 07/13/2017patient says cymbalta is helping, pain is better some days. 07-30-2017 Unclassified (3 sources) Follow Up Headache - Patient is here today for a routine follow up for her chronic daily headaches. [facility] 02/10/17 where we continued Amitriptyline. Patient states she is feeling much better and is not getting the headaches as often as she was. She has noticed when she missed the Amitriptyline she does get a headache so she is trying not to forget those. 05-12-2017 Unclassified (2 sources) UTI - Symptoms include urinary urgency (pressure after voiding to void again), dark urine and malodorous urine, but do not include dysuria, urinary frequency, hematuria, flank pain, abdominal pain or back pain. There is no assiciated pain. There is no radiation. Onset was gradual 1 month(s) ago. There is no known event that preceded symptom onset. The symptoms occur constantly. The patient describes this as moderate in severity and unchanged. Associated symptoms do not include fever, chills or nausea. Risk factors do not include indwelling catheter, fecal incontinence or current . 04-09-2017 Unclassified (2 sources) [ADDITIONAL REASON] smoking cessation 04-09-2017 Unclassified (3 sources) Recheck - Patient is here today for a recheck of her chronic daily headaches. She was last seen for these on 01/13/17 and was given Amitriptyline 25mg, 1 tablet daily at night. Patient states that the medication is working for her. She is feeling great compared to her last visit and would like a refill on the medication. Patient states she has only had one migraine and occasional headaches but not terrible headaches or on daily basis. 02-10-2017 Unclassified (3 sources) Recheck - Patient is here to follow up from her 12/30/16 visit when she was diagnosed with a right shoulder strain. Patient was given Ibuprofen 600mg at that time and states that her shoulder pain has not been any better. She has been taking the Ibuprofen every 6 hours as directed and its not helping. 01-13-2017 Unclassified (3 sources) [ADDITIONAL REASON] Multiple complaints - The onset of the complaints has been sudden , and they have been occurring in a persistent pattern for 3 months. The course has been increasing. The complaints are described as moderate. There has been associated dizziness, headache and nausea, while there has been no associated vomiting. Note for Multiple complaints: She states these symptoms are associated by looking at certain objects or certain colors. She can no longer watch certain things without the symptoms appearing. 01-13-2017 Unclassified (3 sources) Headache - The onset of the headache has been gradual and has been occurring in a persistent pattern for years. The course has been recurrent. The headache is characterized as moderate. The headache is described as being located in the entire head. Note for Headache: -She has seen neurology but quit going because the things they gave her did not help. She had various forms of Imitrex meds and some gabapentin. She has had negative imaging over the years--the most recent was MRI in 2013.Her neck and upper back hurt. She is here with her . 12-10-2015 Unclassified (3 sources) pain - Chronic pain in low and mid back and in left wrist. States it is worse in past 3 weeks. She has seen chiropractor in the past but reports that does not help. Her neurologist gave her meloxicam but she thinks that does not help. She also has muscle relaxers from the neurologist but reports that does not help. She has a wrist brace but does not think it is effective either. 04-09-2015 Unclassified (3 sources) follow up abdominal u/s - patient was sent to for RLQ pain, CT abd showed ovarian cyst and fluid in pelvis per pt.Jenaro ordered u/s and was advised to f/u with results here. Her RLQ pain continues. 09-21-2014 Unclassified (3 sources) multiple complaints - States she is doing better with counelling. She has had a migraine h/a for a week. Fiorinol helped last week but she has not used it reently. Her legs hurt all the time, worse when she sits. She thinks her feet are numb. 03-23-2014 Unclassified (3 sources) Well adult female - The patient does not feel well (tired, still sad after being on antidepressants for one month). The patient exercises daily (active with children, running, situps). The patient sleeps 6 hours per night. 11-28-2013 Unclassified (1 source) smoking cessation 04-09-2017 Unclassified (1 source) [ADDITIONAL REASON] UTI - Symptoms include urinary urgency (pressure after voiding to void again), dark urine and malodorous urine, but do not include dysuria, urinary frequency, hematuria, flank pain, abdominal pain or back pain. There is no assiciated pain. There is no radiation. Onset was gradual 1 month(s) ago. There is no known event that preceded symptom onset. The symptoms occur constantly. The patient describes this as moderate in severity and unchanged. Associated symptoms do not include fever, chills or nausea. Risk factors do not include indwelling catheter, fecal incontinence or current . 04-09-2017 Unclassified (10 sources) 07-06-2023 Unclassified (10 sources) 07-06-2023 Urinary tract infections (20 sources) Acute pyelonephritis; Translations: [Acute pyelonephritis] 03-02-2024 Episodic Past or Other Problems Problem Classification Problem Date Documented Da te Episodic/Chronic Unclassified (2 sources) autoimmune disorder - Pts pain management wants her to get blood work to see if she has a auto immune disease. She currently sees Dr. Lee in [place] for pain in multiple joints, including her back and her wrists. She has never had testing for autoimmune conditions.Patient is also concerned because she has been having worsening muscle weakness over time. She denies any numbness, tingling, or other neurologic symptoms. 03-02-2024 Unclassified (3 sources) Cold Symptoms - Symptoms include runny nose, dry cough, productive cough, wheezing (Patient reports waking up having asthma attacks the past 2 nights) and general malaise (fatigue, denies body aches), but do not include nasal congestion, ear pain, sore throat, fever, chills, headache or facial pain. The onset was gradual 1 week(s) ago. The symptoms occur constantly. The patient describes this as moderate in severity and unchanged. Current treatment includes home remedies. Risk factors do not include child in daycare or smoking. The patient has not been exposed to an individual with a cough, an individual with an upper respiratory infection or an individual with similar symptoms. Medical history includes seasonal allergies and asthma. 07-06-2023 Unclassified (3 sources) Back pain - The onset of the back pain has been gradual and has been occurring in a persistent pattern for 3 months (Has been present for years, but worse the last 3 months). The course has been increasing. The pain is characterized as stabbing (pt said it hurts the most when she is stretching and bending over) and shooting. The pain is located in the lower back (pt has a bracket in her lower back from previous surgeries). There are no precipitating factors. The symptoms are aggravated by prolonged standing and prolonged sitting and have no relieving factors. The pain has been associated with history of back surgery, while there has been no associated chills, back stiffness, bladder dysfunction, incontinence of stool, incontinence of urine, leg weakness or paresthesias in leg. Note for Back pain: Patient also reports pain radiating down the back of her right leg.Patient would like to reassess the medication she is currently taking to help her sleep. She reports that she is currently getting 6-7 hours of sleep a night, but she continues to feel exhausted. She states that her mood has been very low. She denies any suicidal thoughts. She reports that her family will be starting grief counseling this week. 04-28-2023 Unclassified (3 sources) Insomnia - The patient sleeps 2 hours per night. Symptoms are exacerbated by emotional stress. Symptoms are not relieved by supplements/natural medications (Patient has tried several OTC sleep aids without relief of symptoms.). The patient is not currently being treated for this problem. Past treatment has included good sleep hygiene and zolpidem (Ashishien) (Patient reports taking zolpidem previously with a good response to the medication.). Symptoms include difficulty falling asleep (worse since lost 16 year old son in a car accident two months ago.), difficulty staying asleep, daytime sleepiness and anxiety upon awakening. Onset was gradual (Patient reports a history of insomnia, but her symptoms have worsened significantly since her son in an accident 2 months ago). The symptoms occur 7 time(s) a week. The insomnia has been increasing. Associated symptoms include depression (Patient does report an increase in symptoms of both depression and anxiety since her son passed. She has plans to start grief counseling now that she has insurance.). Note for Insomnia: Patient reports that she is trying to stay strong for her daughter and her , but it is very difficult when she cannot sleep at night. She denies any suicidal thoughts at this time. 02-24-2023 Unclassified (2 sources) Follow up consultation - The patient is here to follow-up after Emergency Room/Urgent Care (Patient seen at [facility] on 06/27/2021 for left pyelonephritis. Patient at CT abdomen/pelvis done as well as labs. She was put on Bactrim DS BID X 10 days, given Zofran PRN as well as Tramadol 50mg PRN. Patient here today to follow-up visit.). Current symptoms include Left flank pain (is a constant pain that just hurts. Sometimes the pain will get worse but she will reposition and the pain will decrease in severity.). Note for Consultation follow-up: Patient took only 2 doses of Bactrim DS (Thursday night and Thursday morning). She stopped taking due to developing a migraine Thursday, the migraine lasted through yesterday and when she woke up this morning, migraine was gone. Is taking the Zofran as needed but has not taken Tramadol since Thursday. Reports continued flank and kidney pain.Been increasing her fluid intake. 07-01-2021 Unclassified (2 sources) [ADDITIONAL REASON] Transition into care - The patient is transitioning into care from an emergency room ([facility] 06/27/2021) and a summary of care was reviewed. 07-01-2021 Unclassified (3 sources) Neck pain - The onset of the neck pain has been sudden (Was stretching and felt something give in her neck) and has been occurring in a persistent pattern for 2 days. The course has been worsening. The neck pain is described as a moderate sharp stabbing and shooting. The neck pain is described as being located in the upper shoulders (right side) and right lateral neck and radiating to the into right hand (will sometimes shoot into right hand). Aggravating factors include twisting, bending to the right, bending to the left, rotating to the right, rotating to the left, flexion and extension. The pain is relieved by nothing (Has tried OTC pain killers and ice with little relief of symptoms). There are no associated features fever, arm weakness, paresthesias in arms or trauma. Previous evaluations have been completed by a chiropractor (Patient was going to make a chiropractor appointment, but he is out of the office this week). There has been no previous physical therapy. There has been no previous neck surgery. The pain interferes with personal grooming, driving, bathing, work moderately, cooking, sweeping, gardening, vacuuming and leisure activities. There are no secondary gains. 05-23-2021 Unclassified (3 sources) Cold Symptoms - Symptoms include nasal congestion, runny nose, purulent discharge, ear pain, dry cough, productive cough and headache, but do not include fever. The onset was gradual 10 day(s) ago. The symptoms occur constantly. The patient describes this as moderate in severity and worsening. Current treatment includes allergy medications. Medical history includes seasonal allergies. 02-25-2019 Unclassified (2 sources) Headache - The headache has been occurring in a persistent pattern for 4 days. The course has been constant (worsens in severity during the day). The headache is described as being located in the frontal area (will get sharp shooting pains on the top of her head). The symptoms have been associated with blurring of vision (at times), migraine in the past and nausea, while the symptoms have not been associated with neck pain, neck stiffness or vomiting. 10-19-2018 Unclassified (2 sources) [ADDITIONAL REASON] Breast pain - The breast pain is in both breasts. The breast pain has been occurring in an intermittent pattern for 2 years. The course has been recurrent (will have sharp shooting pains that occur randomly of both breasts.). Note for Breast pain: States that her breast are always tender.About 3-4 months ago, started to have itchiness of bilateral breasts. 10-19-2018 Unclassified (3 sources) [ADDITIONAL REASON] Insomnia - Symptoms include difficulty falling asleep, difficulty staying asleep, unrefreshing sleep and daytime sleepiness. The insomnia has been unchanged. Note for Insomnia: Patient states that she tried taking Zolpidem but did not help her sleeping issues. Will take anywhere from 30 minutes to a couple of hours to fall asleep. Does not feel rested during the day. 10-19-2018 Unclassified (3 sources) UTI - Symptoms include urinary frequency and urinary urgency. The pain is located in the back. There is no radiation. The patient describes the pain as dull and aching. Onset was gradual 1 week(s) ago. There is no known event that preceded symptom onset. The symptoms occur constantly. The patient describes this as moderate in severity and worsening. Associated symptoms include nausea, but do not include fever. 07-01-2018 Unclassified (3 sources) [ADDITIONAL REASON] Ankle pain - The onset of the ankle pain has been sudden following an incident not at work (walking down stairs at home) and has been occurring in a persistent pattern for 6 days. The course has been increasing. The pain is characterized as a moderate sharp stabbing. The pain is in the left ankle and is described as being located in the entire ankle. The pain is aggravated by physical activity and any movement. There are no relieving factors. There have been no previous diagnostic tests. 07-01-2018 Unclassified (3 sources) Cold Symptoms - Symptoms include nasal congestion, runny nose, purulent discharge, ear fullness, productive cough, fever (99.8) and headache. The onset was gradual 4 day(s) ago. The symptoms occur constantly. The patient describes this as moderate in severity and worsening. The patient is not currently being treated for this problem. The patient has been exposed to an individual with similar symptoms. 05-17-2018 Unclassified (3 sources) follow up abd pain - Pt was seen for abd pain, was started on Zantac and probiotics. Sx have improved, pt still gets occasional abd pain and cramps but not as severe. 04-19-2018 Unclassified (3 sources) Abdominal pain - The abdominal pain has been occurring in a persistent pattern for weeks (the pain has been worse for the past 10 days). The course has been increasing. The pain is described as a sharp pain (will become sharp at times) and cramping. The pain is located in the right lower quadrant and does not radiate. The symptoms are aggravated by meals (1/2 to 1 hour after eating) but have no relieving factors. Note for Abdominal pain: Is having pain of back and right leg. Sees pain management.Been having urinary frequency. Denies having burning with urination or recurrent UTI's in past. 03-16-2018 Unclassified (3 sources) Insomnia - The patient sleeps 5 hours per night. The patient typically requires 2 hours to fall asleep. Symptoms are exacerbated by caffeine (not usually right before bed), while symptoms are not exacerbated by emotional stress, job stress, financial stress or alcohol use. Symptoms are relieved by hot bath before bed and supplements/natural medications. The patient is not currently being treated for this problem. Symptoms include difficulty falling asleep and difficulty staying asleep. Onset was gradual 3 week(s) ago. The symptoms occur 7 time(s) a week. The insomnia has been increasing. Associated symptoms include restless legs. 10-16-2017 Unclassified (3 sources) UTI - Symptoms include urinary frequency, urinary urgency and flank pain (right side), but do not include dysuria. There is no radiation. Onset was sudden 3 week(s) ago. The symptoms occur constantly. The patient describes this as moderate in severity and worsening. Associated symptoms include chills and urinary retention, but do not include fever or nausea. 09-21-2017 Unclassified (3 sources) Back pain - The onset of the back pain has been gradual and has been occurring in a persistent pattern for years. The course has been increasing. The pain is characterized as a dull ache. The pain is located in the lower back and radiates to the lateral aspect of right leg and lateral aspect of left leg. The symptoms are aggravated by exertion. Note for Back pain: Pt is feeling nauseated all the time, also wants you to take a look at her toe, joint is swollen and sore. 07-09-2017 Unclassified (3 sources) Back pain - The onset of the back pain has been gradual and has been occurring in a persistent pattern for 2 weeks. The course has been increasing. The pain is characterized as a dull ache and piercing. The pain is located in the lower back and does not radiate. There are no precipitating factors. The symptoms are aggravated by exertion and have no relieving factors. Note for Back pain: Patient was in ER at [facility] on 06/07/17. They took xrays and a urine sample, which both came back fine. They didn't give her anything for pain there. She cannot get into pain management until 07/07/17. 06-09-2017 Unclassified (3 sources) UTI - Symptoms include dark urine. There is no assiciated pain. Onset was gradual 2 day(s) ago. There is no known event that preceded symptom onset. The symptoms occur constantly. The patient describes this as moderate in severity and worsening. Associated symptoms include nausea, but do not include fever. Note for UTI: Patient was here a couple weeks ago and was given Bactrim for the bladder infection she had. She did complete that antibiotic at that time. 05-07-2017 Unclassified (3 sources) Shoulder pain - The onset of the shoulder pain has been sudden following no specific incident and has been occurring in a persistent pattern for 1 month. The course has been increasing. The pain is characterized as a moderate dull aching. The pain is described as being located in the right shoulder and is aggravated by physical activity, any movement and overhead activity. There are no relieving factors. The symptoms have been associated with painful ROM. 12-30-2016 Unclassified (3 sources) Cold Symptoms - Symptoms include nasal congestion, purulent discharge, ear pain, scratchy throat and general malaise, but do not include fever. The onset was sudden 2 day(s) ago. The symptoms occur constantly. The patient describes this as moderate in severity and worsening. Current treatment includes non-prescription cold medication and allergy medications. Risk factors include smoking, but do not include child in daycare. Note for Upper respiratory infection: Patient is normally on allergy medication but she feels its not working and now she had a cold. 11-20-2016 Unclassified (3 sources) Breast pain - The breast pain is in the left breast. The onset of the breast pain has been sudden and has been occurring in a persistent pattern for 2 weeks. The course has been constant. The breast pain is described as moderate. 10-01-2016 Unclassified (3 sources) Cold Symptoms - Symptoms include nasal congestion, productive cough, general malaise and headache. The onset was sudden 4 day(s) ago. The symptoms occur constantly. The patient describes this as moderate in severity and worsening. The patient is not currently being treated for this problem. Risk factors include smoking, but do not include child in daycare. The patient has been exposed to an individual with similar symptoms. Medical history includes asthma. 08-06-2016 Unclassified (3 sources) pain - pt c/o h/a's and back pain, currently on gabapentin twice daily, this only keeps the h/a's a bay, but does not keep them totally away.She was in last month to discuss this and was advised to take flexeril 10mg at bedtime, she states she took one and it gave her a h/aand she does not want to take any more. She also needs ambien to sleep, but was advised that she took take that 4-6 hours apart from the gabapentin, and she is unable to do this.She is tearful today and depressed. 08-02-2016 Unclassified (3 sources) Multiple Issues - Patient is here today with the complain of insomnia. She is on Gabapentin for pain and used to take Ambien for her insomnia but was told it can be dangerous when taken together and that she may not wake up from taking the Ambien. She is having sleeping issues because she does wake up in the middle of the night with pain everywhere. It isn't always in a certain spot and sometimes she cannot pin point it. It is sometimes in the back but not always. Reviewed by MICHAEL. 07-03-2016 Unclassified (2 sources) Abdominal pain - The onset of the abdominal pain has been gradual and has been occurring in a persistent pattern for 2 weeks. The course has been increasing. The pain is described as a moderate sharp pain and dull ache. The pain is located in the right lower quadrant. The symptoms have no relieving factors. There has been no associated abdominal distention or fever. Note for Abdominal pain: -She went to ER for this and had follow up with [facility]. He said it was possibly adhesions from previous abdominal surgeries and referred her to Dr Christopher. Her appt with Dr Christopher was cancelled due to emergency surgery and she did not reschedule because there was a wait. 03-26-2016 Unclassified (3 sources) [ADDITIONAL REASON] Follow up consultation - The patient is here to follow-up after Emergency Room/Urgent Care on : (03-25-16). Note for Consultation follow-up: -Went to ER yesterday for sore throat. Report not available yet. She states she received an antibiotic and steroids and she is feeling better. 03-26-2016 Unclassified (2 sources) [ADDITIONAL REASON] Transition into care - The patient is transitioning into care from an emergency room and a summary of care was not provided . 03-26-2016 Unclassified (3 sources) Follow up consultation - The patient is here to follow-up after Emergency Room/Urgent Care ([facility] with abdominal pain.) on : (03-16-16). Note for Consultation follow-up: Continues with right side pain. Has had pain for 10 days. 03-19-2016 Unclassified (3 sources) multiple things - -1) She has persistent insomnia. 2) She stopped the gabapentin from neurology b/c it was not helping her overall pain. She continues to take her antidepressant. She still has daily and chronic headaches. Her counselor suggests fibromyalgia.3) She has worsening pain from dental extraction--she has Norcatur and antibiotics for that.She has resumed smoking. 09-14-2015 Unclassified (1 source) Tooth Infection - Pt here today because she has a tooth infection.. She has a dental appt 09/05/15 in [place]. She was previously seen at [facility] about 1 month ago and they put her on antibiotic but she does not name but it gave her a headache and has not been on anything since. She never f/u with [facility] due to some issues and now has found new dentist. SHe having pain in lower left bottom of mouth. No swelling but just a lot of pain. reviewed by [facility] 08-17-2015 Unclassified (1 source) [ADDITIONAL REASON] Insomnia - The patient sleeps 6 hours per night. Symptoms are exacerbated by emotional stress (but nothing that has changed.). Symptoms are relieved by sleep medication (Is currently on Gabapentin 400 mg 1-2 at bedtime per [facility] but past 3 months has not helped.). Symptoms include difficulty falling asleep, difficulty staying asleep, daytime sleepiness and anxiety upon awakening (has hx of depression and Anxiety.). Onset was gradual 3 month(s) ago. The insomnia has been increasing. Associated symptoms include restless legs and depression, but do not include snoring or alcohol abuse. Note for Insomnia: nightly. reviewed by [facility] 08-17-2015 Unclassified (3 sources) back pain - Pt. has had continued back pain recently, and an MRI was done May 16.. Pt. is here today to go over results. 05-17-2015 Unclassified (3 sources) Back pain - The onset of the back pain has been gradual and has been occurring in a persistent pattern for months. The course has been increasing. The pain is characterized as a dull ache and burning. The pain is located in the lumbosacral area and does not radiate. The symptoms are aggravated by exertion, prolonged standing, prolonged sitting and lying down and have no relieving factors. Note for Back pain: -Is in PT but missed x 2 this week due to being busy. 05-14-2015 Unclassified (3 sources) Abdominal pain - The onset of the abdominal pain has been sudden and has been occurring in a persistent pattern for 48 hours. The course has been increasing. The pain is described as a mild sharp pain and dull ache. The pain is located in the periumbilical area. The symptoms have no relieving factors. There has been no associated abdominal distention or fever. 12-25-2014 Unclassified (3 sources) Breathing trouble - The onset of the breathing trouble has been gradual. Note for Breathing trouble: -Reports appy on 09/29. Prior to d/c the surgeon told her to do deep breathing b/c her lung bases were collapesd. She returned to hospital on 10/01 for dyspnea and shoulder pain. Dyspnea and feeling of need to take deep breath continue. No fever or cough. Hx asthma. Using Proair does not help. Does not have spirometer. 10-23-2014 Unclassified (3 sources) Cold Symptoms - Symptoms include nasal congestion, hoarseness, productive cough, general malaise and facial pain, but do not include fever or chills. The onset was gradual 2 week(s) ago. The symptoms occur constantly. The patient describes this as moderate in severity and worsening. Risk factors include smoking. The patient has not been exposed to an individual with a cough or an individual with an upper respiratory infection. Medical history includes seasonal allergies and asthma. Note for Upper respiratory infection: reviewed by [facility] 08-22-2014 Unclassified (3 sources) Bloody stools - The onset of the bloody stools has been acute , and they have been occurring in an intermittent pattern for 3 months. The course has been increasing. The bloody stools are characterized as blood mixed in stools and blood streaking of toilet paper. The symptoms have been associated with abdominal pain, a change in bowel habits (increase in frequency bm), a family history of colon cancer (grandfather on mothers side), painful bowel movements, diarrhea and straining on bowel movements (at times) but have not been associated with ingestion of beets, ingestion of bismuth, ingestion of iron pills, nausea, use of aspirin or vomiting. Note for Bloody stools: No pain w BMs. No hemmorrhoids. No fam hx of inflammatory bowel that she knwos of ( does not know fathers hx ). 07-11-2014 Unclassified (3 sources) Cold Symptoms - Symptoms include nasal congestion, runny nose, ear pain, ear fullness and headache, but do not include fever. The onset was gradual 5 day(s) ago. The symptoms occur constantly. The patient describes this as moderate in severity and worsening. Current treatment includes antibiotics. Medical history includes seasonal allergies. Note for Upper respiratory infection: currently on cipro for sinus infection, ear symptoms not improving. 06-08-2014 Unclassified (1 source) Follow up consultation - The patient is here to follow-up after Emergency Room/Urgent Care ([facility] Dx: Recurrent headache/Migraine) on : (04/24/14 and 04/26/14). Note for Consultation follow-up: Patient was given Ativan, Toradol, Demerol, Phenergan while in hospital. Patient was sent home with #6 Percocet. Patient is waiting to hear from Dr. Angeles's office. She has called 6 times in the past 2 days and continues to be told to go to ER until they can talk to Dr. Angeles. Patient was seen by Dr. Angeles 2 weeks ago and started on Topiramate 25mg 1 in the morning and 2 in the evening, also Gabapentin 400mg 1-2 daily. Patient finished a course of prednisone. Patient complains of a headache-not as bad as before, some light sensitivity and nausea. 04-27-2014 Unclassified (1 source) [ADDITIONAL REASON] Transition into care - The patient is transitioning into care from an emergency room and a summary of care was reviewed . 04-27-2014 Unclassified (3 sources) Edema - The onset of the edema has been acute and has been occurring in an episodic pattern for 2 months . The edema is characterized as moderate , and the course of the edema has been increasing. It affects both lower extremities. There were no precipitating factors. The symptoms have not been relieved by any method. 02-20-2014 Unclassified (3 sources) Cold Symptoms - Symptoms include nasal congestion, runny nose, purulent discharge, ear fullness and dry cough. The onset was gradual 1 week(s) ago. The symptoms occur constantly. The patient describes this as moderate in severity and worsening. Current treatment includes allergy medications. The patient has been exposed to an individual with similar symptoms. Medical history includes seasonal allergies. 12-27-2013 Unclassified (3 sources) possible thyroid problems - Cites many months of progressing symptoms. Her grandmother has had a goiter in the past and tells her that every other family member has some sort of thyroid disorder. She has gained 18 lbs since last spring when she stopped smoking. She has mild ankle edema (reports sotomayor left from socks). She has acne (did not have acne as a teen) on her face and chest. She is hungry all the time and has many cravings. She is very fatigued, cannot get enough sleep. Naps during the day. She is contstipated and uses her sons chocolate laxatives. She has headaches. For headache treatment Fiorinal taken 2 tabs at onset and 1 tab an hour later is effective. One weekend the Dr medical numerical control operator gave her sumatriptan which was not effective after 2 doses. She had a hysterectomy for bleeding and her ovaries remain. 11-04-2013 Unclassified (3 sources) Sore Throat - The onset of the sore throat has been acute and has been occurring in a persistent pattern for 2 days. The course has been worsening. The sore throat is described as moderate to severe. Symptoms include sore throat, headache and ear pain. The symptoms are aggravated by swallowing. There are no relieving factors. 01-01-2013 Unclassified (3 sources) Headache - The onset of the headache has been acute and has been occurring in a persistent pattern for 1 day. The course has been increasing in severity. The headache is characterized as severe, pounding, throbbing and a pressure sensation. The headache is described as being located in the entire head. Note for Headache: Also complains of increased asthma flare over the past 2 to 3 weeks. Is currently on a medrol dose pack. Took 1 Vicodin tablet today at 11am (left over from ER visit)She had maxalt in past but it did not work well.She was in ER 10/27 and received morphine injection, SULLIVAN went away until yesterday when it returned. 11-16-2012 Unclassified (3 sources) Cough - The onset of the cough has been acute and has been occurring in a persistent pattern for 2 weeks. The course has been constant. The cough is characterized as dry. The cough occurs all the time. Associated symptoms include chest pain and headache (from coughing), while there is no fever. 10-26-2012 Unclassified (3 sources) Menstrual problems - The menstrual problems are characterized as painful menses and irregular menses. The first day of the last menstrual period was : (12/22/11). Currently : no Note for Menstrual problems: severe cramping, heavy bleeding, large clots, sporadic. Takes Tylenol 1500mg without relief. 01-29-2012 Unclassified (3 sources) leg pain - Second period since delivery. Started 06-25. Associates menses with severe left leg pain. Relief with Pamprin. Has clots with her bleeding and some pain. Had tubal ligation. 06-30-2011 Unclassified (3 sources) Post- visit - The patient is here for a scheduled follow-up visit after a vaginal delivery. There were no complications. The patient feels well with no complaints, is sleeping poorly and has good energy level. The patient has complaints of trouble sleeping, while she denies fever, vaginal discharge or vaginal bleeding. There are no urinary problems. There are no bowel problems. Perineum/wound: perineum healing well. Lochia is scant. There are no feeding difficulties. Menstruation: Last menstrual period date: (05/23/11). Patient states that sexual activity has resumed. The patient's current method of control is tubal ligation. The patient has resumed physical activity. Patient states that she is coping/adjusting to motherhood well and family is interacting well with . 05-29-2011 Unclassified (3 sources) dysuria - has had pain after urinating since delivery of baby on 03/25 (7 days ago). sx improved for one day and came back 3 days ago. she does not have urgency or frequency. pain seems to be worst when her urine hits her skin. she feels good otherwise. has moderate amount of lochia. she did have an episiotomy with sutures and a post tubal. 04-14-2011 Unclassified (20 sources) Visit 03-19-2011 Unclassified (3 sources) Cold Symptoms - Symptoms include nasal congestion, purulent discharge, scratchy throat, dry cough (mild), wheezing and headache (mild), but do not include ear pain or fever. The patient is not currently being treated for this problem. The patient has not been exposed to an individual with similar symptoms. Medical History Includes seasonal allergies. Note for Cold Symptoms: Pt states she went to ER on Thursday for c/o chest heaviness. They told her they thought it was Asthma flare up and allergies and gave her a flovent inhaler. She states she has now started with s/t, nasal congestion. No sob, no fever. She is almost 7mo .Typically allergy triggers: early spring and fall-but have been better recently 12-30-2010 Unclassified (3 sources) Visit - The patient is here for a 21 week visit. 11-11-2010 Unclassified (3 sources) Visit - The patient is here for a 13 week visit. 09-16-2010 Unclassified (3 sources) Positive Test - The patient suspects she is due to a positive home test and missed menses. 08-19-2010 Unclassified (1 source) Transition into care - The patient is transitioning into care from an emergency room ([facility] 06/27/2021) and a summary of care was reviewed. 07-01-2021 Unclassified (1 source) [ADDITIONAL REASON] Follow up consultation - The patient is here to follow-up after Emergency Room/Urgent Care (Patient seen at [facility] on 06/27/2021 for left pyelonephritis. Patient at CT abdomen/pelvis done as well as labs. She was put on Bactrim DS BID X 10 days, given Zofran PRN as well as Tramadol 50mg PRN. Patient here today to follow-up visit.). Current symptoms include Left flank pain (is a constant pain that just hurts. Sometimes the pain will get worse but she will reposition and the pain will decrease in severity.). Note for Consultation follow-up: Patient took only 2 doses of Bactrim DS (Thursday night and Thursday morning). She stopped taking due to developing a migraine Thursday, the migraine lasted through yesterday and when she woke up this morning, migraine was gone. Is taking the Zofran as needed but has not taken Tramadol since Thursday. Reports continued flank and kidney pain.Been increasing her fluid intake. 07-01-2021 Unclassified (1 source) Breast pain - The breast pain is in both breasts. The breast pain has been occurring in an intermittent pattern for 2 years. The course has been recurrent (will have sharp shooting pains that occur randomly of both breasts.). Note for Breast pain: States that her breast are always tender.About 3-4 months ago, started to have itchiness of bilateral breasts. 10-19-2018 Unclassified (1 source) [ADDITIONAL REASON] Headache - The headache has been occurring in a persistent pattern for 4 days. The course has been constant (worsens in severity during the day). The headache is described as being located in the frontal area (will get sharp shooting pains on the top of her head). The symptoms have been associated with blurring of vision (at times), migraine in the past and nausea, while the symptoms have not been associated with neck pain, neck stiffness or vomiting. 10-19-2018 Unclassified (1 source) Transition into care - The patient is transitioning into care from an emergency room and a summary of care was not provided . 03-26-2016 Unclassified (1 source) [ADDITIONAL REASON] Abdominal pain - The onset of the abdominal pain has been gradual and has been occurring in a persistent pattern for 2 weeks. The course has been increasing. The pain is described as a moderate sharp pain and dull ache. The pain is located in the right lower quadrant. The symptoms have no relieving factors. There has been no associated abdominal distention or fever. Note for Abdominal pain: -She went to ER for this and had follow up with [facility]. He said it was possibly adhesions from previous abdominal surgeries and referred her to Dr Christopher. Her appt with Dr Christopher was cancelled due to emergency surgery and she did not reschedule because there was a wait. 03-26-2016 Unclassified (2 sources) Insomnia - The patient sleeps 6 hours per night. Symptoms are exacerbated by emotional stress (but nothing that has changed.). Symptoms are relieved by sleep medication (Is currently on Gabapentin 400 mg 1-2 at bedtime per [facility] but past 3 months has not helped.). Symptoms include difficulty falling asleep, difficulty staying asleep, daytime sleepiness and anxiety upon awakening (has hx of depression and Anxiety.). Onset was gradual 3 month(s) ago. The insomnia has been increasing. Associated symptoms include restless legs and depression, but do not include snoring or alcohol abuse. Note for Insomnia: nightly. reviewed by [facility] 08-17-2015 Unclassified (2 sources) [ADDITIONAL REASON] Tooth Infection - Pt here today because she has a tooth infection.. She has a dental appt 09/05/15 in [place]. She was previously seen at [facility] about 1 month ago and they put her on antibiotic but she does not name but it gave her a headache and has not been on anything since. She never f/u with [facility] due to some issues and now has found new dentist. SHe having pain in lower left bottom of mouth. No swelling but just a lot of pain. reviewed by [facility] 08-17-2015 Unclassified (2 sources) Transition into care - The patient is transitioning into care from an emergency room and a summary of care was reviewed . 04-27-2014 Unclassified (2 sources) [ADDITIONAL REASON] Follow up consultation - The patient is here to follow-up after Emergency Room/Urgent Care ([facility] Dx: Recurrent headache/Migraine) on : (04/24/14 and 04/26/14). Note for Consultation follow-up: Patient was given Ativan, Toradol, Demerol, Phenergan while in hospital. Patient was sent home with #6 Percocet. Patient is waiting to hear from Dr. Angeles's office. She has called 6 times in the past 2 days and continues to be told to go to ER until they can talk to Dr. Angeles. Patient was seen by Dr. Angeles 2 weeks ago and started on Topiramate 25mg 1 in the morning and 2 in the evening, also Gabapentin 400mg 1-2 daily. Patient finished a course of prednisone. Patient complains of a headache-not as bad as before, some light sensitivity and nausea. 04-27-2014 Results Test Name Value Interpretation Reference Range Facility RONALD w/ Reflex Mult Confirmon 08-07-2025 ANTI-DNA (DS)AB TNP Normal [facility] Comment on above: Performed By: #### L 3300.0960, L503.6005, L501.6710, L503.0106, L101.9900, L501.5200, L505.5000, L3100.1725, L100.0100, L500.4050, L501.9520, L3100.5450 #### [facility] [address] [place], [place], [id number] ANTI-SS-A TNP Normal [facility] Comment on above: Performed By: #### L 3300.0960, L503.6005, L501.6710, L503.0106, L101.9900, L501.5200, L505.5000, L3100.1725, L100.0100, L500.4050, L501.9520, L3100.5450 #### [facility] [address] [place], [address] ANTI-SS-B TNP Normal [facility] Comment on above: Performed By: #### L 3300.0960, L503.6005, L501.6710, L503.0106, L101.9900, L501.5200, L505.5000, L3100.1725, L100.0100, L500.4050, L501.9520, L3100.5450 #### [facility] [address] [facility] [place], [address] Vitamin D 1,25-Dihydroxyon 1 10-07-2024 VIT D 1,25 DIHY 31.1 pg/mL Normal 24.8-81.5 [facility] Comment on above: Performed By: #### L 3300.0960, L503.6005, L501.6710, L503.0106, L101.9900, L501.5200, L505.5000, L3100.1725, L100.0100, L500.4050, L501.9520, L3100.5450 #### [facility] [address] [place], [place], [address] Bilat Brst Timoteo Stand Aloneo n 08-04-2025 Bilat Brst [place] Stand Alone [facility] Imaging Services [address] [place], [place] [address] Bilat Brst [place]o Stand Alone MR#: [id number] Acct: [id number] Name: XU PUCKETT Rep #: [id number] : 1985 F 40 From: Siena Zelaya MD PCP: DENISE Lambert Status: REG CLI Study: Bilat Brst Timoteo Stand Alone Date of Exam: 07/07 10/29 Exam# [id number] Ordering Dr: Khushbu Meredith EXAM: DIAG MAMM W/CAD, BILAT; BREAST LIMITED UNILATERAL; BILAT BRST TIMOTE[place] STAND ALONE 08/04/2025 CLINICAL HISTORY: F, Age 40 y/o , ABD MAMM; PAIN TECHNIQUE: Procedure Code: BIDMWCADB; USBRSTLIMIT; BIBILATBRTOM Modality: MG; US Procedure: DIAG MAMM W/CAD, BILAT; BREAST LIMITED UNILATERAL; BILAT BRST TIMOTEO STAND ALONE. COMPARISON: Baseline examination, no priors. FINDINGS: MAMMOGRAM: TISSUE DENSITY: There are scattered areas of fibroglandular density. Bilateral Breast Mammographic Findings: The patient presents with pain in the lateral breast bilaterally. On the present examination, there are no suspicious mammographic findings in the lateral breast bilaterally to account for the patient's pain. Otherwise, there are no significant masses, calcifications or other abnormalities are identified. ULTRASOUND: Ultrasound performed of the lateral breast bilaterally demonstrate no suspicious sonographic findings in the area of patient's pain. There are no suspicious masses or abnormal cystic elements. BI/Bilat Brst Timoteo Stand Alone IMPRESSION: There are no suspicious mammographic or sonographic findings in the area of patient's pain bilaterally. Clinical management is recommended for the pain. There is no evidence of malignancy in either breast. OVERALL FINAL ASSESSMENT BI-RADS 1: NEGATIVE RECOMMENDATION: Routine annual follow-up in 1 Year Additional Recommendation none A letter with findings and recommendations will be mailed to the patient. Reading Location: [facility] CC: DENISE Lambert Welding Teacher: Signed Normal [facility] Breast Limited Unilateralon 08-04-2025 Breast Limited Unilateral [facility] Imaging Services [address] [place] [address] Breast Limited Unilateral MR#: [id number] Acct: [id number] Name: XU PUCKETT Rep #: [id number] : 1985 F 40 From: Siena Zelaya MD PCP: DENISE Lambert Status: REG CLI Study: Breast Limited Unilateral Date of Exam: Exam# [id number] Ordering Dr: Khushbu Meredith EXAM: DIAG MAMM W/CAD, BILAT; BREAST LIMITED UNILATERAL; BILAT BRST TIMOTE[place] STAND ALONE 08/04/2025 CLINICAL HISTORY: F, Age 40 y/o , ABD MAMM; PAIN TECHNIQUE: Procedure Code: BIDMWCADB; USBRSTLIMIT; BIBILATBRTOM Modality: MG; US Procedure: DIAG MAMM W/CAD, BILAT; BREAST LIMITED UNILATERAL; BILAT BRST TIMOTEO STAND ALONE. COMPARISON: Baseline examination, no priors. FINDINGS: MAMMOGRAM: TISSUE DENSITY: There are scattered areas of fibroglandular density. Bilateral Breast Mammographic Findings: The patient presents with pain in the lateral breast bilaterally. On the present examination, there are no suspicious mammographic findings in the lateral breast bilaterally to account for the patient's pain. Otherwise, there are no significant masses, calcifications or other abnormalities are identified. ULTRASOUND: Ultrasound performed of the lateral breast bilaterally demonstrate no suspicious sonographic findings in the area of patient's pain. There are no suspicious masses or abnormal cystic elements. US/Breast Limited Unilateral IMPRESSION: There are no suspicious mammographic or sonographic findings in the area of patient's pain bilaterally. Clinical management is recommended for the pain. There is no evidence of malignancy in either breast. OVERALL FINAL ASSESSMENT BI-RADS 1: NEGATIVE RECOMMENDATION: Routine annual follow-up in 1 Year Additional Recommendation none A letter with findings and recommendations will be mailed to the patient. Reading Location: [facility] CC: DENISE Lambert Welding Teacher: Signed Normal [facility] Breast Limited Unilateral [facility] Imaging Services [address] [place] [address] Breast Limited Unilateral MR#: [id number] Acct: [id number] Name: XU UPCKETT Rep #: [id number] : 1985 F 40 From: Siena Zelaya MD PCP: DENISE Lambert Status: REG CLI Study: Breast Limited Unilateral Date of Exam: Exam# [id number] Ordering Dr: Khushbu Meredith EXAM: DIAG MAMM W/CAD, BILAT; BREAST LIMITED UNILATERAL; BILAT BRST TIMOTE[place] STAND ALONE 08/04/2025 CLINICAL HISTORY: F, Age 40 y/o , ABD MAMM; PAIN TECHNIQUE: Procedure Code: BIDMWCADB; USBRSTLIMIT; BIBILATBRTOM Modality: MG; US Procedure: DIAG MAMM W/CAD, BILAT; BREAST LIMITED UNILATERAL; BILAT BRST TIMOTE[place] STAND ALONE. COMPARISON: Baseline examination, no priors. FINDINGS: MAMMOGRAM: TISSUE DENSITY: There are scattered areas of fibroglandular density. Bilateral Breast Mammographic Findings: The patient presents with pain in the lateral breast bilaterally. On the present examination, there are no suspicious mammographic findings in the lateral breast bilaterally to account for the patient's pain. Otherwise, there are no significant masses, calcifications or other abnormalities are identified. ULTRASOUND: Ultrasound performed of the lateral breast bilaterally demonstrate no suspicious sonographic findings in the area of patient's pain. There are no suspicious masses or abnormal cystic elements. US/Breast Limited Unilateral IMPRESSION: There are no suspicious mammographic or sonographic findings in the area of patient's pain bilaterally. Clinical management is recommended for the pain. There is no evidence of malignancy in either breast. OVERALL FINAL ASSESSMENT BI-RADS 1: NEGATIVE RECOMMENDATION: Routine annual follow-up in 1 Year Additional Recommendation none A letter with findings and recommendations will be mailed to the patient. Reading Location: [facility] CC: DENISE Lambert Welding Teacher: Signed Normal [facility] DIAG MAMM W/CAD, BILATon DIAG MAMM W/CAD, BILAT [facility] Imaging Services [address] [place] [address] DIAG MAMM W/CAD, BILAT MR#: [id number] Acct: [id number] Name: XU PUCKETT Rep #: [id number] : 1985 F 40 From: Siena Zelaya MD PCP: DENISE Lambert Status: [facility] CL Study: DIAG MAMM W/CAD, BILAT Date of Exam: 08/04/25 Exam# [id number] Ordering Dr: Khushbu Meredith EXAM: DIAG MAMM W/CAD, BILAT; BREAST LIMITED UNILATERAL; BILAT BRST TIMOTE[place] STAND ALONE 08/04/2025 CLINICAL HISTORY: F, Age 40 y/o , ABD MAMM; PAIN TECHNIQUE: Procedure Code: BIDMWCADB; USBRSTLIMIT; BIBILATBRTOM Modality: MG; US Procedure: DIAG MAMM W/CAD, BILAT; BREAST LIMITED UNILATERAL; BILAT BRST TIMOTEO STAND ALONE. COMPARISON: Baseline examination, no priors. FINDINGS: MAMMOGRAM: TISSUE DENSITY: There are scattered areas of fibroglandular density. Bilateral Breast Mammographic Findings: The patient presents with pain in the lateral breast bilaterally. On the present examination, there are no suspicious mammographic findings in the lateral breast bilaterally to account for the patient's pain. Otherwise, there are no significant masses, calcifications or other abnormalities are identified. ULTRASOUND: Ultrasound performed of the lateral breast bilaterally demonstrate no suspicious sonographic findings in the area of patient's pain. There are no suspicious masses or abnormal cystic elements. BI/DIAG MAMM W/CAD, BILAT IMPRESSION: There are no suspicious mammographic or sonographic findings in the area of patient's pain bilaterally. Clinical management is recommended for the pain. There is no evidence of malignancy in either breast. OVERALL FINAL ASSESSMENT BI-RADS 1: NEGATIVE RECOMMENDATION: Routine annual follow-up in 1 Year Additional Recommendation none A letter with findings and recommendations will be mailed to the patient. Reading Location: [id number] CC: DENISE Lambert Welding Teacher: Signed Normal [facility] Folates, RBCon 08-04-2025 Fol.,Hemolysate 305.0 ng/mL Normal Not Estab. [facility] Comment on above: Performed By: #### L 3300.0960, L503.6005, L501.6710, L503.0106, L101.9900, L501.5200, L505.5000, L3100.1725, L100.0100, L500.4050, L501.9520, L3100.5450 #### [facility] [address] [place], [address] Folate, RBC 631 ng/mL Normal >498 [facility] Comment on above: Result Comment: Perf ormed at: - [facility] [address] [id number] Lieutenant General: Luis Ventura PhD, Phone: [phone] Performed By: #### L 3300.0960, L503.6005, L501.6710, L503.0106, L101.9900, L501.5200, L505.5000, L3100.1725, L100.0100, L500.4050, L501.9520, L3100.5450 #### [facility] [address] [place], [place], [id number] Hematocrit (Bld) [Volume fraction] 48.3 % High 34.0-46.6 [facility] Comment on above: Performed By: #### L 3300.0960, L503.6005, L501.6710, L503.0106, L101.9900, L501.5200, L505.5000, L3100.1725, L100.0100, L500.4050, L501.9520, L3100.5450 #### [facility] [address] [place], [place], [id number] CBC W/Diff, Automatedon 10-3 0-2024 Absolute Lymph 1.98 X10 3/uL Normal 0.83-4.51 [facility] Comment on above: Performed By: #### L 3300.0960, L503.6005, L501.6710, L503.0106, L101.9900, L501.5200, L505.5000, L3100.1725, L100.0100, L500.4050, L501.9520, L3100.5450 #### [facility] [address] [place], [place], [address] Absolute Neut 5.3 X10 3/uL Normal 2.0-7.7 [facility] Comment on above: Performed By: #### L 3300.0960, L503.6005, L501.6710, L503.0106, L101.9900, L501.5200, L505.5000, L3100.1725, L100.0100, L500.4050, L501.9520, L3100.5450 #### [facility] [address] [place], [place], [phone] (895) Basophils/100 WBC (Bld) 1.0 % Normal 0-1 [facility] Comment on above: Performed By: #### L 3300.0960, L503.6005, L501.6710, L503.0106, L101.9900, L501.5200, L505.5000, L3100.1725, L100.0100, L500.4050, L501.9520, L3100.5450 #### [facility] [address] [facility] [place], [place], [phone] (003) Eosinophils/100 WBC (Bld) 2.2 % Normal 0-5 [facility] Comment on above: Performed By: #### L 3300.0960, L503.6005, L501.6710, L503.0106, L101.9900, L501.5200, L505.5000, L3100.1725, L100.0100, L500.4050, L501.9520, L3100.5450 #### [facility] [address] [place], [address] Erythrocyte distribution width (RBC) [Ratio] 12.1 % Normal 11.6-14.6 [facility] Comment on above: Performed By: #### L 3300.0960, L503.6005, L501.6710, L503.0106, L101.9900, L501.5200, L505.5000, L3100.1725, L100.0100, L500.4050, L501.9520, L3100.5450 #### [facility] [address] [place], [address] Hematocrit (Bld) [Volume fraction] 45.6 % Normal 37-47 [facility] Comment on above: Performed By: #### L 3300.0960, L503.6005, L501.6710, L503.0106, L101.9900, L501.5200, L505.5000, L3100.1725, L100.0100, L500.4050, L501.9520, L3100.5450 #### [facility] [address] [place], [address] (916) Hemoglobin (Bld) [Mass/Vol] 16.0 g/dL High 12.0-15.0 [facility] Comment on above: Performed By: #### L 3300.0960, L503.6005, L501.6710, L503.0106, L101.9900, L501.5200, L505.5000, L3100.1725, L100.0100, L500.4050, L501.9520, L3100.5450 #### [facility] [address] [facility] [place], [address] (870) IG% 0.100 Normal 0.0-0.9 [facility] Comment on above: Result Comment: IG% - Immature Granulocytes (promyelocytes, myelocytes and metamyelocytes) > 1% indicates that a LEFT SHIFT is Present. Performed By: #### L 3300.0960, L503.6005, L501.6710, L503.0106, L101.9900, L501.5200, L505.5000, L3100.1725, L100.0100, L500.4050, L501.9520, L3100.5450 #### [facility] [address] [place], [address] Lymphocytes/100 WBC (Bld) 24.7 % Normal 19-41 [facility] Comment on above: Performed By: #### L 3300.0960, L503.6005, L501.6710, L503.0106, L101.9900, L501.5200, L505.5000, L3100.1725, L100.0100, L500.4050, L501.9520, L3100.5450 #### [facility] [address] [place], [address] MCH (RBC) [Entitic mass] 31.0 pg Normal 27.0-32.0 [facility] Comment on above: Performed By: #### L 3300.0960, L503.6005, L501.6710, L503.0106, L101.9900, L501.5200, L505.5000, L3100.1725, L100.0100, L500.4050, L501.9520, L3100.5450 #### [facility] [address] [place], [address] MCHC (RBC) [Mass/Vol] 35.1 g/dL Normal 32-36 [facility] Comment on above: Performed By: #### L 3300.0960, L503.6005, L501.6710, L503.0106, L101.9900, L501.5200, L505.5000, L3100.1725, L100.0100, L500.4050, L501.9520, L3100.5450 #### [facility] [address] [place], [address] MCV (RBC) [Entitic vol] 88.4 fL Normal 81-99 [facility] Comment on above: Performed By: #### L 3300.0960, L503.6005, L501.6710, L503.0106, L101.9900, L501.5200, L505.5000, L3100.1725, L100.0100, L500.4050, L501.9520, L3100.5450 #### [facility] [address] [place], [address] Monocytes/100 WBC (Bld) 6.1 % Normal 0-10 [facility] Comment on above: Performed By: #### L 3300.0960, L503.6005, L501.6710, L503.0106, L101.9900, L501.5200, L505.5000, L3100.1725, L100.0100, L500.4050, L501.9520, L3100.5450 #### [facility] [address] [place], [address] Neutrophils/100 WBC (Bld) 65.9 % Normal 47-70 [facility] Comment on above: Performed By: #### L 3300.0960, L503.6005, L501.6710, L503.0106, L101.9900, L501.5200, L505.5000, L3100.1725, L100.0100, L500.4050, L501.9520, L3100.5450 #### [facility] [address] [place], [address] Nucleated RBC (Bld) [#/Vol] 0 10*3/uL Normal 0-5 [facility] Comment on above: Performed By: #### L 3300.0960, L503.6005, L501.6710, L503.0106, L101.9900, L501.5200, L505.5000, L3100.1725, L100.0100, L500.4050, L501.9520, L3100.5450 #### [facility] [address] [place], [address] Platelet mean volume (Bld) [Entitic vol] 9.4 fL Normal 6.2-12.0 [facility] Comment on above: Performed By: #### L 3300.0960, L503.6005, L501.6710, L503.0106, L101.9900, L501.5200, L505.5000, L3100.1725, L100.0100, L500.4050, L501.9520, L3100.5450 #### [facility] [address] [place], [address] Platelets (Bld) [#/Vol] 254 10*3/uL Normal 150-450 [facility] Comment on above: Performed By: #### L 3300.0960, L503.6005, L501.6710, L503.0106, L101.9900, L501.5200, L505.5000, L3100.1725, L100.0100, L500.4050, L501.9520, L3100.5450 #### [facility] [address] [place], [place], [phone] (520) RBC (Bld) [#/Vol] 5.16 10*6/uL Normal 4.2-5.4 [facility] Comment on above: Performed By: #### L 3300.0960, L503.6005, L501.6710, L503.0106, L101.9900, L501.5200, L505.5000, L3100.1725, L100.0100, L500.4050, L501.9520, L3100.5450 #### [facility] [address] [place], [place], [phone] (024) RDW SD 39.2 fl Normal 35.1-43.9 [facility] Comment on above: Performed By: #### L 3300.0960, L503.6005, L501.6710, L503.0106, L101.9900, L501.5200, L505.5000, L3100.1725, L100.0100, L500.4050, L501.9520, L3100.5450 #### [facility] [address] [place], [address] (745) WBC (Bld) [#/Vol] 8.0 10*3/uL Normal 4.4-11.0 [facility] Comment on above: Performed By: #### L 3300.0960, L503.6005, L501.6710, L503.0106, L101.9900, L501.5200, L505.5000, L3100.1725, L100.0100, L500.4050, L501.9520, L3100.5450 #### [facility] [address] [place], [address] CRPon 4 C-REACTIVE PROT < 3.00 Normal 0.0-3.0 [facility] Comment on above: Performed By: #### L 3300.0960, L503.6005, L501.6710, L503.0106, L101.9900, L501.5200, L505.5000, L3100.1725, L100.0100, L500.4050, L501.9520, L3100.5450 #### [facility] [address] [place], [address] Comprehensive Metabolic Prof ilon 08-03-2025 Albumin [Mass/Vol] 4.4 g/dL Normal 3.5-5.0 [facility] Comment on above: Performed By: #### L 3300.0960, L503.6005, L501.6710, L503.0106, L101.9900, L501.5200, L505.5000, L3100.1725, L100.0100, L500.4050, L501.9520, L3100.5450 #### [facility] [address] [place], [address] Albumin/Globulin [Mass ratio] 1.5 {ratio} Normal 0.9-2.4 [facility] Comment on above: Performed By: #### L 3300.0960, L503.6005, L501.6710, L503.0106, L101.9900, L501.5200, L505.5000, L3100.1725, L100.0100, L500.4050, L501.9520, L3100.5450 #### [facility] [address] [place], [address] ALK PHOS 69 U/L Normal 35-104 [facility] Comment on above: Performed By: #### L 3300.0960, L503.6005, L501.6710, L503.0106, L101.9900, L501.5200, L505.5000, L3100.1725, L100.0100, L500.4050, L501.9520, L3100.5450 #### [facility] [address] [place], [place], [phone] (207) ALT [Catalytic activity/Vol] 24 U/L Normal <=34 [facility] Comment on above: Performed By: #### L 3300.0960, L503.6005, L501.6710, L503.0106, L101.9900, L501.5200, L505.5000, L3100.1725, L100.0100, L500.4050, L501.9520, L3100.5450 #### [facility] [address] [facility] [place], [place], [phone] (572) AST [Catalytic activity/Vol] 22 U/L Normal <=31 [facility] Comment on above: Performed By: #### L 3300.0960, L503.6005, L501.6710, L503.0106, L101.9900, L501.5200, L505.5000, L3100.1725, L100.0100, L500.4050, L501.9520, L3100.5450 #### [facility] [address] [place], [place], [id number] (755) Bilirubin [Mass/Vol] 0.58 mg/dL Normal 0.00-1.30 [facility] Comment on above: Performed By: #### L 3300.0960, L503.6005, L501.6710, L503.0106, L101.9900, L501.5200, L505.5000, L3100.1725, L100.0100, L500.4050, L501.9520, L3100.5450 #### [facility] [address] [place], [address] (527) BUN/CRE 8.7 RATIO Low 10-20 [facility] Comment on above: Performed By: #### L 3300.0960, L503.6005, L501.6710, L503.0106, L101.9900, L501.5200, L505.5000, L3100.1725, L100.0100, L500.4050, L501.9520, L3100.5450 #### [facility] [address] [place], [address] Calcium [Mass/Vol] 9.3 mg/dL Normal 7.6-11.0 [facility] Comment on above: Performed By: #### L 3300.0960, L503.6005, L501.6710, L503.0106, L101.9900, L501.5200, L505.5000, L3100.1725, L100.0100, L500.4050, L501.9520, L3100.5450 #### [facility] [address] [place], [place], [phone] (288) Chloride [Moles/Vol] 105 mmol/L Normal 98-108 [facility] Comment on above: Performed By: #### L 3300.0960, L503.6005, L501.6710, L503.0106, L101.9900, L501.5200, L505.5000, L3100.1725, L100.0100, L500.4050, L501.9520, L3100.5450 #### [facility] [address] [place], [address] CO2 [Moles/Vol] 24.5 mmol/L Normal 21.0-32.0 [facility] Comment on above: Performed By: #### L 3300.0960, L503.6005, L501.6710, L503.0106, L101.9900, L501.5200, L505.5000, L3100.1725, L100.0100, L500.4050, L501.9520, L3100.5450 #### [facility] [address] [place], [place], [phone] (089) Creatinine [Mass/Vol] 0.77 mg/dL Normal 0.70-1.20 [facility] Comment on above: Performed By: #### L 3300.0960, L503.6005, L501.6710, L503.0106, L101.9900, L501.5200, L505.5000, L3100.1725, L100.0100, L500.4050, L501.9520, L3100.5450 #### [facility] [address] [place], [place], [id number] GAP 10 Normal 5-15 [facility] Comment on above: Performed By: #### L 3300.0960, L503.6005, L501.6710, L503.0106, L101.9900, L501.5200, L505.5000, L3100.1725, L100.0100, L500.4050, L501.9520, L3100.5450 #### [facility] [address] [place], [place], [id number] GFR/1.73 sq M.predicted among non-blacks MDRD (S/P/Bld) [Vol rate/Area] 101 mL/min/{1.73_m2} Normal >60 [facility] Comment on above: Result Comment: mL/m in/1.73m2 CKD-EPI Creatinine Equation (2020) Performed By: #### L 3300.0960, L503.6005, L501.6710, L503.0106, L101.9900, L501.5200, L505.5000, L3100.1725, L100.0100, L500.4050, L501.9520, L3100.5450 #### [facility] [address] [place], [place], [phone] (081) Globulin (S) [Mass/Vol] 2.8 g/dL Normal 2.2-4.2 [facility] Comment on above: Performed By: #### L 3300.0960, L503.6005, L501.6710, L503.0106, L101.9900, L501.5200, L505.5000, L3100.1725, L100.0100, L500.4050, L501.9520, L3100.5450 #### [facility] [address] [place], [address] Glucose [Mass/Vol] 102 mg/dL High 70-99 [facility] Comment on above: Performed By: #### L 3300.0960, L503.6005, L501.6710, L503.0106, L101.9900, L501.5200, L505.5000, L3100.1725, L100.0100, L500.4050, L501.9520, L3100.5450 #### [facility] [address] [place], [address] Potassium [Moles/Vol] 4.1 mmol/L Normal 3.3-5.1 [facility] Comment on above: Performed By: #### L 3300.0960, L503.6005, L501.6710, L503.0106, L101.9900, L501.5200, L505.5000, L3100.1725, L100.0100, L500.4050, L501.9520, L3100.5450 #### [facility] [address] [place], [address] Sodium [Moles/Vol] 139 mmol/L Normal 133-145 [facility] Comment on above: Performed By: #### L 3300.0960, L503.6005, L501.6710, L503.0106, L101.9900, L501.5200, L505.5000, L3100.1725, L100.0100, L500.4050, L501.9520, L3100.5450 #### [facility] [address] [place], [address] T PROT 7.2 g/dL Normal 5.9-8.4 [facility] Comment on above: Performed By: #### L 3300.0960, L503.6005, L501.6710, L503.0106, L101.9900, L501.5200, L505.5000, L3100.1725, L100.0100, L500.4050, L501.9520, L3100.5450 #### [facility] [address] [place], [place], [address] Urea nitrogen [Mass/Vol] 7 mg/dL Normal 4-19 [facility] Comment on above: Performed By: #### L 3300.0960, L503.6005, L501.6710, L503.0106, L101.9900, L501.5200, L505.5000, L3100.1725, L100.0100, L500.4050, L501.9520, L3100.5450 #### [facility] [address] [place], [place], [address] Erythrocyte Sed Rateon 08-03 SED RATE 1 mm/hr Normal 0-30 [facility] Comment on above: Performed By: #### L 3300.0960, L503.6005, L501.6710, L503.0106, L101.9900, L501.5200, L505.5000, L3100.1725, L100.0100, L500.4050, L501.9520, L3100.5450 #### [facility] [address] [place], [place], [address] Lactic Acidon 08-03-2025 Lactate [Moles/Vol] mmol/L Normal 0.0-2.0 [facility] Comment on above: Order Comment: N Performed By: #### L 3300.0960, L503.6005, L501.6710, L503.0106, L101.9900, L501.5200, L505.5000, L3100.1725, L100.0100, L500.4050, L501.9520, L3100.5450 #### [facility] [address] [place], [address] Magnesiumon 08-03-2025 Magnesium [Mass/Vol] 2.3 mg/dL High 1.5-2.2 [facility] Comment on above: Performed By: #### L 3300.0960, L503.6005, L501.6710, L503.0106, L101.9900, L501.5200, L505.5000, L3100.1725, L100.0100, L500.4050, L501.9520, L3100.5450 #### [facility] [address] [place], [place], [id number] Neurology Visit Reporton Neurology Visit Report [facility] [address] [place] [address], [address] [place], [place] [address] OFFICE VISIT Date of Service: 08/03/25 MR#: [id number] Acct: [id number] Name: XU PUCKETT Rep #: [id number] : 1985 Provider: ALISHA spencer Age/Sex: 40/F Location: [facility] Status: Signed [facility] Chief Complaint: Establish care Details: History of present illness: Mrs. Puckett is a 40-year-old left-handed female who presents to neurology today 08/03/2025 to establish care. She was referred by Khushbu Meredith PA-C with [facility] for memory changes, recurrent presyncopal episodes, and worsening migraines. Patient is accompanied by her daughter Gisselle today. Pertinent past medical history includes anxiety/depression/in somnia, restless leg, migraine, syncope, vitamin D insufficiency, IBS with constipation, polyarthralgia, chronic back pain s/p lumbar surgeries in 2017 and 2019, fibromyalgia, and breast pain/lump. She is a current tobacco smoker approximately 1ppd; she denies marijuana, illicit drug, and EtOH use. There is a family history of migraines, stroke, and possibly dementia. No other family neurological history is reported. There is no known seizure history in the family. Patient reports a progressive memory impairment in a persistent pattern over the last 1-2 years, but has become more apparent to her and family members over the last 5 months. Cognitive concerns are affecting her recent memory as she often forgets which task she was currently working on. She describes persistent brain fog. Family members report staring episodes and lack of question response occurring up to 10 times per day and other days none; duration is approximately 1 minute. Patient says that she will be able to hear talking but not be able to comprehend what is being said. She is able to move her head but her eyes feel fixated. She also reports difficulty with word finding or stating the wrong word. 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 Patient denies ever waking up with urinary incontinence or a bitten tongue. Patient had a syncopal episode in January 2025, possibly a vasovagal event. She stated that she wore a cardiac event monitor that did not reveal any underlying arrhythmias. This report is not currently available for review. She has a history of migraine headaches with nausea and photophobia/photophob ia. These are reportedly now well-controlled with dietary changes and she is not on medication other than as needed Tylenol. She does get an aura that she describes as blind spots in her vision. Lights also have a tendency to cause episodes of nausea. ROS: General: No fatigue. No recent weight loss/gain. No recent illness. No fevers. No recent falls. Neuro: Occasional mild headaches, history of migraines. No dizziness. Intermittent numbness/tingling that she attributes to prior lumbar surgeries. No weakness. Bilateral hand tremors present. Psych: No insomnia or hypersomnia. No agitation. No depressive symptoms. No memory difficulties. Cardio: No palpitations. No chest pain or discomfort. No edema. Respiratory: Current tobacco smoker. No cough. No shortness of breath. No wheezing. Musculoskeletal: No use of assistive devices. No neck pain. Chronic back pain. History of fibromyalgia. HEENT: No hearing loss. No blurry vision. Has visual auras with migraines. No diplopia. No dysphagia. GI: No hematochezia. No NVD. Chronic constipation. No abdominal pain or discomfort. : No hematuria. No frequency or urgency. No incontinence. No dysuria. Skin: No ecchymosis. No wounds, rashes, or lesions. PHYSICAL EXAM: Constitutional: Well-developed, well-nourished left-handed female in no acute distress. Psych: Cooperative and pleasant. Judgement and insight good. HEENT: Normocephalic. Atraumatic. Hearing grossly normal bilaterally. Periorbital findings are normal. Respiratory: Normal effort. Symmetric chest movement. Clear to auscultation bilaterally. Cardio: Regular rate and rhythm. No auscultated murmurs. No auscultated carotid bruit. GI: Abdomen is soft, flat, nondistended. Nontender. Bowel sounds slightly hyperactive. Musculoskeletal: No muscle weakness. No difficulties with ROM. Extremities: Absence of edema. No peripheral cyanosis. Skin: No visible wounds or lesions. No visible ecchymosis. Normal skin turgor. Neurological exam: Mental status: Alert, awake, oriented x 4. MMSE 30/30. Immediate recall is 3/3; delayed 5-minute recall is 3/3. Speech exhibits increased response latency. She has good comprehension and normal repetition and naming. Cranial nerves II-XII: PERRL 4 mm in size bilaterally. EOM intact. Ocu (more content not included)... Normal [facility] Thyroid Stim Hormone (TSH)on 08-03-2025 TSH 1.900 uIU/mL Normal 0.300-4.200 [facility] Comment on above: Performed By: #### L 3300.0960, L503.6005, L501.6710, L503.0106, L101.9900, L501.5200, L505.5000, L3100.1725, L100.0100, L500.4050, L501.9520, L3100.5450 #### [facility] [address] [place] [place], [address] Urine Drug Screen (VISTA)on 08-03-2025 AMPHETAMINES Negative Normal <1000 ng/mL [facility] Comment on above: Order Comment: UKN Performed By: #### L 3300.0960, L503.6005, L501.6710, L503.0106, L101.9900, L501.5200, L505.5000, L3100.1725, L100.0100, L500.4050, L501.9520, L3100.5450 #### [facility] [address] [place], [place], [id number] BARBITIURATES Negative Normal < 200 ng/mL [facility] Comment on above: Order Comment: UKN Performed By: #### L 3300.0960, L503.6005, L501.6710, L503.0106, L101.9900, L501.5200, L505.5000, L3100.1725, L100.0100, L500.4050, L501.9520, L3100.5450 #### [facility] [address] [place], [place], [address] BENZODIAZIPINE Negative Normal < 200 ng/mL [facility] Comment on above: Order Comment: UKN Performed By: #### L 3300.0960, L503.6005, L501.6710, L503.0106, L101.9900, L501.5200, L505.5000, L3100.1725, L100.0100, L500.4050, L501.9520, L3100.5450 #### [facility] [address] [place], [place], [address] BUP Ur Drug Scr Negative Normal < 200 ng/mL [facility] Comment on above: Order Comment: UKN Performed By: #### L 3300.0960, L503.6005, L501.6710, L503.0106, L101.9900, L501.5200, L505.5000, L3100.1725, L100.0100, L500.4050, L501.9520, L3100.5450 #### [facility] [address] [place], [place], [address] COCAINE Negative Normal < 300 ng/mL [facility] Comment on above: Order Comment: UKN Performed By: #### L 3300.0960, L503.6005, L501.6710, L503.0106, L101.9900, L501.5200, L505.5000, L3100.1725, L100.0100, L500.4050, L501.9520, L3100.5450 #### [facility] [address] [place], [place], [address] Fentanyl Negative Normal <5 ng/mL [facility] Comment on above: Order Comment: UKN Result Comment: CONF IRMATORY TESTING FOR ALL POSITIVE URINE DRUG SCREEN RESULTS WILL ONLY BE SENT OUT UPON PHYSICIAN ORDER. Radha Pro Urine Drug Screen methods provide only preliminary analytical test results. A more specific alternate chemical method must be used in order to obtain a confirmed analytical result. Gas chromatography/mass spectrometery (GC/MS) is the preferred confirmatory method. Clinical consideration and professional judgement should be applied to any drug of abuse test result, particularly when preliminary positive results are used. Urine TCA testing must be ordered separately. Use test mnemonic: UTCA Performed By: #### L 3300.0960, L503.6005, L501.6710, L503.0106, L101.9900, L501.5200, L505.5000, L3100.1725, L100.0100, L500.4050, L501.9520, L3100.5450 #### [facility] [address] [place], [place], [address] METHADONE Negative Normal < 300 ng/mL [facility] Comment on above: Order Comment: UKN Performed By: #### L 3300.0960, L503.6005, L501.6710, L503.0106, L101.9900, L501.5200, L505.5000, L3100.1725, L100.0100, L500.4050, L501.9520, L3100.5450 #### [facility] [address] [place], [place], [address] OPIATES Negative Normal < 300 ng/mL [facility] Comment on above: Order Comment: UKN Performed By: #### L 3300.0960, L503.6005, L501.6710, L503.0106, L101.9900, L501.5200, L505.5000, L3100.1725, L100.0100, L500.4050, L501.9520, L3100.5450 #### [facility] [address] [place], [place], [address] OXYCODONE Negative Normal < 100 ng/mL [facility] Comment on above: Order Comment: UKN Performed By: #### L 3300.0960, L503.6005, L501.6710, L503.0106, L101.9900, L501.5200, L505.5000, L3100.1725, L100.0100, L500.4050, L501.9520, L3100.5450 #### [facility] [address] [place], [place], [address] PCP Negative Normal < 25 ng/mL [facility] Comment on above: Order Comment: UKN Performed By: #### L 3300.0960, L503.6005, L501.6710, L503.0106, L101.9900, L501.5200, L505.5000, L3100.1725, L100.0100, L500.4050, L501.9520, L3100.5450 #### [facility] [address] [place], [place], [address] THC Negative Normal < 50 ng/mL [facility] Comment on above: Order Comment: UKN Performed By: #### L 3300.0960, L503.6005, L501.6710, L503.0106, L101.9900, L501.5200, L505.5000, L3100.1725, L100.0100, L500.4050, L501.9520, L3100.5450 #### [facility] [address] [facility] [address] [place], [place], [address] Vitamin B12on 08-03-2025 Cobalamin (Vitamin B12) [Mass/Vol] 838 pg/mL Normal 180-914 [facility] Comment on above: Performed By: #### L 3300.0960, L503.6005, L501.6710, L503.0106, L101.9900, L501.5200, L505.5000, L3100.1725, L100.0100, L500.4050, L501.9520, L3100.5450 #### [facility] [address] [facility] [place], [place], [address] CBC + DIFFon 12-30-2024 Baso # 0.01 x10EE3/UL Normal 0.00 - 0.10 [facility] Comment on above: Performed By: #### 2 72786 #### [facility],[address] [place] [address] Basophils/100 WBC (Bld) 0.3 % Normal 0.0 - 2.0 [facility] Comment on above: Performed By: #### 2 87805 #### [facility],[address] [place] [address] CBC + DIFF Normal [facility] Comment on above: Result Comment: CBC- COMPLETE BLOOD COUNT Performed By: #### 2 72358 #### [facility],[address] [place] [address] 36535 EO # 0.15 x10EE3/UL Normal 0.00 - 0.50 [facility] Comment on above: Performed By: #### 2 02996 #### [facility],[address] [place] [address] 42182 Eosinophils/100 WBC (Bld) 3.3 % Normal 0.0 - 7.0 [facility] Comment on above: Performed By: #### 2 13674 #### [facility],[address] [place] [address] Erythrocyte distribution width (RBC) [Ratio] 12.6 % Normal 12.0 - 15.6 [facility] Comment on above: Performed By: #### 2 04329 #### [facility],[address] [place] [address] Hematocrit (Bld) [Volume fraction] 47.0 % High 34.0 - 46.0 [facility] Comment on above: Performed By: #### 2 82449 #### [facility],[address] [place] [address] Hemoglobin (Bld) [Mass/Vol] 16.6 g/dL High 12.0 - 16.0 [facility] Comment on above: Performed By: #### 2 71694 #### [facility],[address] [place] [address]26 Lymph # 1.91 x10EE3/UL Normal 0.80 - 2.80 [facility] Comment on above: Performed By: #### 2 63464 #### [facility],[address] [place] [address] 71062 Lymphocytes/100 WBC (Bld) 41.0 % Normal 20.0 - 45.0 [facility] Comment on above: Performed By: #### 2 73241 #### [facility],[address] [place], [place] [address] MANUAL DIFF N/A Normal [facility] Comment on above: Performed By: #### 2 52741 #### [facility],[address] [place] [address] 69213 MCH (RBC) [Entitic mass] 32 pg Normal 27 - 33 [facility] Comment on above: Performed By: #### 2 84043 #### [facility],[address] [place] [address] MCHC 35 X10 3 Normal 32 - 36 [facility] Comment on above: Performed By: #### 2 26887 #### [facility],[address] [place] [address] 99111 MCV (RBC) [Entitic vol] 90 fL Normal 80 - 99 [facility] Comment on above: Performed By: #### 2 03399 #### [facility],[address] [place] [address] Harper # 0.43 x10EE3/UL Normal 0.20 - 1.00 [facility] Comment on above: Performed By: #### 2 04908 #### [facility],[address] [place] [address] 76720 MONOS % 9.1 % Normal 0.0 - 10.0 [facility] Comment on above: Performed By: #### 2 58583 #### [facility],[address] [place] [address] 04184 Morphology Bob (Bld) [Interp] N/A Normal [facility] Comment on above: Performed By: #### 2 47010 #### [facility],[address] [place] [address]24 Neut # 2.16 x10EE3/UL Normal 1.50 - 7.10 [facility] Comment on above: Performed By: #### 2 17910 #### [facility],[address] [place] [address]606 Neutrophils/100 WBC (Bld) 46.3 % Normal 46.0 - 76.0 [facility] Comment on above: Performed By: #### 2 04593 #### [facility],[address] [place] [address] 38079 PLATELET 231 x10EE3/UL Normal 150 - 450 [facility] Comment on above: Performed By: #### 2 99536 #### [facility],[address] [place] [address] 18921 Platelet mean volume (Bld) [Entitic vol] 7.4 fL Normal 6.6 - 10.5 [facility] Comment on above: Result Comment: AUTO MATED DIFFERENTIAL Performed By: #### 2 94394 #### [facility],[address] [place] [address] 20168 RBC 5.21 x 10EE6/UL Normal 4.10 - 5.30 [facility] Comment on above: Performed By: #### 2 78810 #### [facility],[address] [place] [address] 97227 WBC 4.7 x 10EE3/UL Normal 4.5 - 10.8 [facility] Comment on above: Performed By: #### 2 47220 #### [facility],[address] [place] [address] 28193 CHEST 1 VIEWon 12-30-2024 CHEST 1 VIEW [place] [address] Patient: XU PUCKETT Phone#: : 1985 Age: 39 Gender: F Pt. Type: ER Account: [id number] Location: 052 Ordering: DR. GABE ABDI Exam Date: 12/30/2024/11:57 Family Phys: HORTENSIA CHING Charge Code: 314344 Physician: Cascade Order #: [id number] Dose#: PROCEDURE: X-RAY CHEST 1 VIEW COMPARISON: [facility], XR, CHEST PA/LAT, 04/12/2018, 22:50. INDICATIONS: Cough. FINDINGS: LUNGS: Normal. No significant pulmonary parenchymal abnormalities. VASCULATURE: Normal. Unremarkable pulmonary vasculature. CARDIAC: Normal. No cardiac silhouette abnormality or cardiomegaly. MEDIASTINUM: Normal. No visible mass or adenopathy. PLEURA: Normal. No effusion or pleural thickening. BONES: Normal. No fracture or visible bony lesion. OTHER: Negative. CONCLUSION: No acute disease. Dictated by: Radha Brewster MD on 12/30/2024 at 12:08 Approved by: Radha Brewster MD on 12/30/2024 at 12:08 Normal [facility] CMP with eGFRon 12-30-2024 AGE 39 years Normal [facility] Comment on above: Performed By: #### 2 28343 ####[address] [address] Albumin [Mass/Vol] 3.6 g/dL Normal 3.4 - 5.0 [facility] Comment on above: Performed By: #### 2 76402 ####[facility],[address] [place], [place] [address] Albumin/Globulin [Mass ratio] 1.0 {ratio} Normal 0.9 - 1.6 [facility] Comment on above: Performed By: #### 2 39249 ####[facility],[address] [place] [address] 23079 ALK PHOS 69 U/L Normal 46 - 116 [facility] Comment on above: Performed By: #### 2 80241 ####[facility],[address] [place] [address] 06794 ALT [Catalytic activity/Vol] 31 U/L Normal 16 - 63 [facility] Comment on above: Performed By: #### 2 66965 ####[address] [address] Anion gap [Moles/Vol] 9 mmol/L Low 10 - 20 [facility] Comment on above: Performed By: #### 2 26303 ####[address] [address] AST [Catalytic activity/Vol] 22 U/L Normal 13 - 39 [facility] Comment on above: Performed By: #### 2 60846 ####[facility],[address] [place], [place] [address] B/C RATIO 16 ratio Normal 0 - 30 [facility] Comment on above: Performed By: #### 2 88395 ####[facility],[address] [place] [address] Bilirubin [Mass/Vol] 0.6 mg/dL Normal 0.2 - 1.0 [facility] Comment on above: Performed By: #### 2 08974 ####[facility],[address] [place] [address] Calcium [Mass/Vol] 8.3 mg/dL Low 8.5 - 10.1 [facility] Comment on above: Performed By: #### 2 85804 ####[facility],[address] [place], [place] [address] Chloride [Moles/Vol] 105 mmol/L Normal 98 - 107 [facility] Comment on above: Performed By: #### 2 31054 ####[facility],[address] [place] [address] CMP with eGFR Normal [facility] Comment on above: Result Comment: COMP REHENSIVE METABOLIC PANEL Performed By: #### 2 59729 ####[facility],[address] [place] [address]10 CO2 [Moles/Vol] 28.5 mmol/L Normal 21.0 - 32.0 [facility] Comment on above: Performed By: #### 2 08500 ####[facility],[address] [place] [address] 50615 Creatinine [Mass/Vol] 0.94 mg/dL Normal 0.55 - 1.02 [facility] Comment on above: Performed By: #### 2 99292 ####[facility],[address] [place] [address] 19812 GFR/1.73 sq M.predicted among non-blacks MDRD (S/P/Bld) [Vol rate/Area] mL/min/{1.73_m2} Normal 60 - 999 [facility] Comment on above: Performed By: #### 2 93260 ####[facility],[address] [place] [address] 36969 Result Comment: ACCO RDING TO THE NATIONAL KIDNEY DISEASE EDUCATION PROGRAM(NKDE), A NORMAL eGFR IS A VALUE GREATER THAN OR EQUAL TO 60 ML/MIN/1.73 SQ METERS. CHRONIC KIDNEY DISEASE: <60mL/MIN/1.73 SQ METERS KIDNEY FAILURE: <15mL/MIN/1.73 SQ METERS THIS TEST SHOULD ONLY BE USED FOR PATIENTS 18 YEARS OF AGE AND OLDER. Globulin (S) [Mass/Vol] 3.5 g/dL Normal 1.5 - 3.8 [facility] Comment on above: Performed By: #### 2 05080 ####[facility],[address] [place] [address] 62545 Glucose [Mass/Vol] 119 mg/dL High 74 - 106 [facility] Comment on above: Performed By: #### 2 16308 ####[facility],[address] [place] [address] 09140 Potassium [Moles/Vol] 3.9 mmol/L Normal 3.5 - 5.1 [facility] Comment on above: Performed By: #### 2 68855 ####[facility],[address] [place] [address] 37589 Protein [Mass/Vol] 7.1 g/dL Normal 6.4 - 8.2 [facility] Comment on above: Performed By: #### 2 97103 ####[facility],[address] [place] [address] 12346 Sodium [Moles/Vol] 139 mmol/L Normal 136 - 145 [facility] Comment on above: Performed By: #### 2 84260 ####[facility] [place] [address] 27943 Urea nitrogen [Mass/Vol] 15 mg/dL Normal 7 - 18 [facility] Comment on above: Performed By: #### 2 19049 ####[facility],[address] [place] [address] BRAIN W/O CONTRASTon - CT BRAIN W/O CONTRAST [address] [address] Patient: XU PUCKETT Phone#: : 1985 Age: 39 Gender: F Pt. Type: ER Account: [id number] Location: [facility] Ordering: DR. GABE ABDI Exam Date: 12/30/2024/11:53 Family Phys: HORTENSIA CHING Charge Code: [id number] Physician: Cascade Order #: [id number] Dose#: 52.30 mGy PROCEDURE: CT BRAIN WITHOUT CONTRAST COMPARISON: None. INDICATIONS: Syncope. TECHNIQUE: CT images were obtained without contrast material. All CT scans at this facility use dose modulation, iterative reconstruction, and/or weight based dosing when appropriate to reduce radiation dose to as low as reasonably achievable. IV CONTRAST: No IV contrast used,0ml TOTAL DOSE: 52.30 CTDIvol(mGy) FINDINGS: CEREBRUM: No edema, hemorrhage, mass, acute infarction, or inappropriate atrophy. CEREBELLUM: No edema, hemorrhage, mass, acute infarction, or inappropriate atrophy. BRAINSTEM: No edema, hemorrhage, mass, acute infarction, or inappropriate atrophy. CSF SPACES: Ventricles, cisterns, and sulci are appropriate for age. No hydrocephalus, subarachnoid hemorrhage, or mass. SKULL: No mass or other significant visible lesion. SINUSES: Mucosal thickening is present in the frontal, ethmoid, sphenoid sinuses. ORBITS: Limited views are unremarkable. OTHER: Right frontal falcine calcification is present.. CONCLUSION: 1. Paranasal sinus disease. 2. There is no evidence of acute intracranial abnormality. Dictated by: Radha Brewster MD on 12/30/2024 at 12:09 Approved by: Radha Brewster MD on 12/30/2024 at 12:11 Normal [facility] DRUG SCREEN URINE MEDICon AMPHETAMINES Negative Normal [facility] Comment on above: Performed By: #### 2 43698 #### [facility],[address] [place] [address],[facility] [address] B-DIAZEPINES Negative Normal [facility] Comment on above: Performed By: #### 2 40598 #### [facility],[address] [place] [address],[facility] [address] BARBITURATES Negative Normal [facility] Comment on above: Performed By: #### 2 25517 #### [facility],[address] [place] [address],[facility] [address] COCAINE Negative Normal [facility] Comment on above: Performed By: #### 2 80554 #### [facility],[address] [place], [place] [address] [id number] DRUG SCREEN URINE MEDIC [facility] Comment on above: Result Comment: DRUG SCREEN - URINE Performed By: #### 2 [id number] #### [facility],[address] [place] [address] [id number] METHADONE Negative [facility] Comment on above: Performed By: #### 2 [id number] #### [facility],[address] [place] [address] [id number] OPIATES Negative [facility] Comment on above: Performed By: #### 2 [id number] #### [facility],[address] [place] [address] 74430 PCP Negative [facility] Comment on above: Performed By: #### 2 [id number] #### [facility],[address] [place] [address] [id number] THC Negative [facility] Comment on above: Result Comment: XIMENA ENTS RECEIVING PROTON PUMP INHIBITORS MAY DEMONSTRATE FALSE POSITIVE THC/CANNABINOID RESULTS. AN ALTERNATIVE CONFIRMATORY METHOD SHOULD BE CONSIDERED TO VERIFY POSITIVE RESULTS. Performed By: #### 2 [id number] #### [facility],[address] [place] [address] [id number] ED MED ADMINISTRATION DETAIL on 12-30-2024 ED MED ADMINISTRATION DETAIL [employer] Medication Administration Record [address] [place] [address] [id number] 12/30/2024 Patient: XU PUCKETT Sex: Female : 1985 Age: 39y MEASUREMENTS: Wt: 81.6 kg, Ht/Parish: 65.0 in, BMI: 29.95 ALLERGIES: Augmentin, cephalexin Medication Ordered Medication Administration Date/Time IV NS 0.9 % 1000 12:00 12/30 IV NS 0.9 % 1000 mL started in bag#2 1000 mL at Started mL at 500 mL/hr 500 mL/hr via Site# 1. Allergies verified and confirmed 5 rights. Via 12:00 12/30/2024 (NOW x1) IV pump. IV patency established. IV site checked: no pain, redness, Latesha Reynoso R.N. or swelling. IV flushed thoroughly pre-medication administration. Stopped Information reviewed. Verbalizes understanding. - 12:00 Latesha 14:17 12/30/2024 Dick Reynoso R.N. Scanned 14:17 12/30 Medication Discontinued: bag #2 completed. Total amount infused: 1000 mL. IV patency established. IV site checked: no pain, redness, or swelling. IV flushed thoroughly post-medication administration. - 17:18 Latesha Reynoso R.N. DiphenhydrAMINE 14:15 12/30 DiphenhydrAMINE (Benadryl) IVP 50 mg given via Given (Benadryl) IVP 50 Site# 1. Allergies verified and confirmed 5 rights. IV patency 14:15 12/30/2024 mg (NOW x1) established. IV site checked: no pain, redness, or swelling. IV Latesha Reynoso R.N. flushed thoroughly pre-medication administration. Information Scanned reviewed. Verbalizes understanding. - 14:15 Latesha Reynoso R.N. 1 of 2 [employer] Medication Ordered Medication Administration Date/Time Reglan IVP 10 mg 14:16 12/30 Reglan IVP 10 mg given via Site# 1. Allergies verified Given (NOW x1) and confirmed 5 rights. IV patency established. IV site checked: no 14:16 12/30/2024 pain, redness, or swelling. IV flushed thoroughly pre-medication Latesha Reynoso R.N. administration. Information reviewed. Verbalizes understanding. - Scanned 14:16 Latesha Reynoso R.N. 15:18 12/30 Medication Response: Pain is improving. - 17:18 Latesha Reynoso R.N. KetorOLAC 14:14 12/30 KetorOLAC (Toradol) IVP 15 mg given via Site# 1. Given (Toradol) IVP 15 mg Allergies verified and confirmed 5 rights. IV patency established. IV 14:14 12/30/2024 (NOW x1) site checked: no pain, redness, or swelling. IV flushed thoroughly Latesha Reynoso R.N. pre-medication administration. Information reviewed. Verbalizes Scanned understanding. Medication Wastage: 15 mg wasted. - 14:15 Latesha Reynoso R.N. 15:19 12/30 Medication Response: Pain is improving. - 17:19 Latesha Reynoso R.N. 2 of 2 [facility] ED NURSES CLINICAL NOTEon ED NURSES CLINICAL NOTE Nurse Narrative Nurse Clinical [address] [address] [phone] 12/30/2024 Patient: XU PUCKETT Sex: Female : 1985 Age: 39y Primary Insurance: [facility] [employer]PAT[employer] Policy Number: [id number] Group Number: [id number] Subscriber: Other Disposition: Discharge to Home Disposition Decision Time: 17:02 12/30/2024 Departure Time: 17:17 12/30/2024 TRIAGE Arrived by EMS. Historian: (patient). Patient has a primary care physician. Primary physician (Khushbu Meredith). Triage time: 10:50 12/30/2024. Acuity: LEVEL 3. Chief Complaint: SINGLE SYNCOPAL EPISODE. Alert. This occurred just prior to arrival. Patient was reported to be last known well. The patient has had a headache. ( Viral symptoms for approx. one week; glucose - 109). SEPSIS SCREEN: NEGATIVE. SIRS criteria negative. No possible sources of infection. -- 10:57 12/30/24 EDT Erin Cates.N. 10:56 12/30/24. BP: 131/80 MAP: 97. HR: 76. RR: 18. O2 saturation: 95% on room air. Temperature: 97.3 F (temporal). Pain level now 07/14. -- 10:57 12/30/24 EDT Romeo Stevenson R.N. Measurements: 10:57 12/30/24 Wt: 81.6 kg, Ht/Parish: 65.0 in, BMI: 29.95 -- 10:57 12/30/24 EDT Brady CatesN. Medications: 1 of 5 Nurse Narrative no known home medications -- 10:54 12/30/24 HALLET Brady CatesN. 10:50 12/30/24. Preferred Pharmacy: ([facility]). -- 10:57 12/30/24 HALLET Romeo Stevenson R.N. Allergies: Augmentin -- 10:53 12/30/24 EDT Romeo Stevenson R.N. cephalexin -- 10:53 12/30/24 EDT Romeo Stevenson R.N. Problems: Fibromyalgia -- 10:54 12/30/24 EDT Romeo Stevenson R.N. Asthma -- 10:54 12/30/24 EDT Romeo Stevenson R.N. Migraine Headache -- 10:54 12/30/24 EDT Romeo Stevenson R.N. ADDITIONAL SURGERIES: Cholecystectomy -- 10:55 12/30/24 EDT Romeo Stevenson R.N. Partial hysterectomy -- 10:55 12/30/24 EDT Romeo Stevenson R.N. Appendectomy -- 10:55 12/30/24 EDT Romeo Stevenson R.N. Back Surgery -- 10:55 12/30/24 HALLET Erin Cates.Grant. History 10:50 12/30/24. PAST MEDICAL HX: LNMP: Last normal menstrual period unknown. Denies current . SOCIAL HX: Heavy tobacco smoker- 1 pack per day. No alcohol use or drug use. The patient has not traveled outside the [place] Infectious disease exposure: No infectious disease exposure. ABUSE ASSESSMENT: The patient answered yes to the question(s) Do you feel safe in your home? and no to the question(s) Are you afraid to go home?. SELF HARM ASSESSMENT: Self harm assessment was performed. The patient answered no to the question(s) Have you recently felt down, depressed, or hopeless? and Do you have thoughts of harming or killing yourself?. 2 of 5 Nurse Narrative FALL RISK ASSESSMENT: Fall risk assessment completed. Risk factors identified include patient history of fainting. Fall interventions initiated. Side rails up x2. Bed in low position. Brakes on. -- 10:12/30/24 EDT Romeo Stevenson R.N. Interventions 10:50 12/30/24. Identification band and allergy band on patient. -- 10:12/30/24 EDT Romeo Stevenson R.N. PHYSICAL ASSESSMENT 11:12/30/24. GENERAL / NEURO / PSYCH: Oriented X 4. Appears in no acute distress. Alert. Speech within normal limits. HEENT: No facial asymmetry noted. Pupils equal, round and reactive to light. RESPIRATORY: Breath sounds within normal limits. Respirations not labored. SKIN: Skin is warm and dry. -- 11:12/30/24 EDT Fabrice Chance R.N. NURSING PROGRESS NOTES 10:12/30/24. Site #1 started prior to arrival by EMS via IV in the right antecubital space with a 20g angiocath; 1 attempt. Blood drawn: rainbow set tube(s). (1L NS admin by EMS.) -- 11:12/30/24 EDT Fabrice Chance R.N. 11:12/30/24. 12-LEAD EKG: EKG time: (11:12/30/2024). 12-Lead EKG was performed by me and shown to the ED physician. -- 12:16 12/30/24 EDT Amy Lancaster 11:12/30/24. Rounding: Pain: assessed pain level. Personal care / toileting: assisted with toileting. Proximity of possessions / care items: call light within easy reach. Set expectations: asked if they needed anything else at this time. -- 11:19 12/30/24 EDT Latesha Reynoso R.N. 11:54 12/30/24. Patient returned from CT by stretcher with solar lab technician. -- 12:09 12/30/24 EDT Latesha Reynoso R.N. 12:00 12/30/24. IV NS 0.9 % 1000 mL started in bag#2 1000 mL at 500 mL/hr via Site# 1. Allergies verified and confirmed 5 rights. Via IV pump. IV patency established. IV site checked: no pain, redness, or swelling. IV flushed thoroughly pre-medication administration. Information reviewed. Verbalizes understanding. -- 12:00 12/30/24 EDT Latesha Reynoso R.N. 14:14 12/30/24. KetorOLAC (Toradol) IVP 15 mg given via Site# 1. Allergies verified and confirmed 5 rights. IV patency established. IV site checked: no pain, redness, or swel (more content not included)... [facility] ED ORDER SHEET (CPOE ONLY)on 12-30-2024 ED ORDER SHEET (CPOE ONLY) Order Sheet Order Sheet [address] [place] [address] [id number] 12/30/2024 Patient: XU PUCKETT Sex: Female : 1985 Age: 39y MEASUREMENTS: Wt: 81.6 kg, Ht/Parish: 65.0 in, BMI: 29.95 ALLERGIES: Augmentin, cephalexin MEDICATION/IV/DRIP/FL UID ORDERS Order Description Priority Entered Acknowledged Completed IV NS 0.9 %1000 mL at 500 11:46 12/30/2024 12:00 mL/hr (NOW x1) Gabe Abdi D.O. 12/30/2024 Latesha Reynoso R.N. MethylPREDNISolone Sodium 14:08 12/30/2024 14:19 Succ (Solu-Medrol) [id number] mg Gabe Abdi D.O. 12/30/2024 (NOW x1) Latesha Reynoso R.N. Reason for ordering with alerts: Clinical consideration given --14:08 12/30/2024 Gabe Abdi D.O. MethylPREDNISolone Sodium 14:08 12/30/2024 14:19 Succ (Solu-Medrol) [id number] mg Gabe Abdi D.O. 12/30/2024 (NOW x1) Latesha Reynoso R.N. Reason for ordering with alerts: Clinical consideration given --14:08 12/30/2024 Gabe Abdi D.O. DiphenhydrAMINE (Benadryl) 14:08 12/30/2024 14:15 1 of 4 Order Sheet IVP50 mg (NOW x1) Gabe Abdi D.O. 12/30/2024 Latesha Reynoso R.N. Reglan IVP10 mg (NOW x1) 14:08 12/30/2024 14:16 Gabe Abdi D.O. 12/30/2024 Latesha Reynoso R.N. KetorOLAC (Toradol) IVP15 mg 14:08 12/30/2024 14:15 (NOW x1) Gabe Abdi D.O. 12/30/2024 Latesha Reynoso R.N. Reason for ordering with alerts: Clinical consideration given --14:08 12/30/2024 Gabe Abdi D.O. LAB ORDERS Order Description Priority Entered Acknowledged Collected Completed CBC w Diff Stat Stat 11:46 12/30/2024 11:56 12/30/2024 12:03 12/30/2024 Latesha Baum R.N. Tessa Miller, R.N. D.OJyoti CMP Stat Stat 11:46 12/30/2024 11:56 12/30/2024 12:03 12/30/2024 Latesha Baum R.N. Tessa Miller, R.N. D.O. Lactate, Serum Stat Stat 11:46 12/30/2024 11:56 12/30/2024 12:03 12/30/2024 Latesha Baum R.N. Tessa Miller, R.N. D.OJyoti Troponin-I Stat Stat 11:46 12/30/2024 11:56 12/30/2024 12:03 12/30/2024 Latesha Baum R.N. Tessa Miller, R.N. D.O. 2 of 4 Order Sheet EKG - ED Stat Stat 11:46 12/30/2024 11:56 12/30/2024 12:03 12/30/2024 Latesha Baum R.N. Tessa Miller, R.N. D.OJyoti Urinalysis Stat Stat 11:46 12/30/2024 11:56 12/30/2024 14:19 12/30/2024 Latesha Baum R.N. Tessa Miller, R.N. D.OJyoti Urine Drug Screen Stat Stat 11:46 12/30/2024 11:56 12/30/2024 14:19 12/30/2024 Latesha Baum R.N. Tessa Miller, R.N. D.OJyoti HCG, Qual Serum Stat Stat 13:38 12/30/2024 13:43 12/30/2024 13:44 12/30/2024 Latesha Baum R.N. Tessa Miller, R.N. D.OJyoti DIAGNOSTIC STUDY ORDERS Order Description Priority Entered Acknowledged Completed Chest 1V Stat Stat 11:46 12/30/2024 11:56 12:03 Gabe Abdi D.O. 12/30/2024 12/30/2024 Latesha Alonzo, BradyN. R.N. Reason for Study: Cough CT Brain wo Cont Stat Stat 11:46 12/30/2024 11:56 12:03 Gabe Abdi D.O. 12/30/2024 12/30/2024 Latesha Alonzo R.N. R.N. Reason for Study: Syncope MRA Brain Stat Stat 14:11 12/30/2024 14:19 16:43 Gabe Abdi D.O. 12/30/2024 12/30/2024 Latesha Alonzo, BradyN. R.N. 3 of 4 Order Sheet Order Comments: 14:11 12/30/2024: (MRA/MRV to r/o aneurysm and MRV to r/o venous thombosis) Gabe Abdi D.O. Reason for Study: Venous Thrombus STAFF ORDERS Order Description Priority Entered Acknowledged Collected Completed Vendor Management Associate 11:46 12/30/2024 11:56 12/30/2024 12:03 12/30/2024 Latesha Baum R.N. Tessa Miller, R.N. D.O. Pulse Oximeter 11:46 12/30/2024 11:56 12/30/2024 12:03 12/30/2024 Latesha Baum R.N. Tessa Miller, R.N. D.O. Vital Signs every 30 11:46 12/30/2024 11:56 12/30/2024 12:03 12/30/2024 minutes Latesha Baum R.N. Tessa Miller, R.N. D.O. [Electronically signed by Gabe Abdi D.O. (12/30/2024 21:27 EDT)] 4 of 4 [facility] ED PHYSICIAN CLINICAL REPORT on 12-30-2024 ED PHYSICIAN CLINICAL REPORT Narrative Physician Clinical Narrative [address] [address] [phone] 12/30/2024 Patient: XU PUCKETT Sex: Female : 1985 Age: 39y Primary Insurance: [facility] [employer] OUTPATIENT Policy Number: [id number] Group Number: [id number] Subscriber: Other Disposition: Discharge to Home Disposition Decision Time: 17:02 12/30/2024 Departure Time: 17:17 12/30/2024 Measurements Wt: 81.6 kg, Ht/Parish: 65.0 in, BMI: 29.95 Initial Vital Sign Measured Time BP MAP HR RR O2Sat ETCO2 Temp Pain GCS RTS 10:56 12/30/2024 131/80 97 76 18 95% RA 97.3 F 10 Time Seen: 11:27 12/30/2024. Arrived- By private vehicle. Historian- patient. HISTORY OF PRESENT ILLNESS Chief Complaint: SYNCOPE. The patient has recovered. This occurred just prior to arrival. ( patient was seated at the table, started to feel funny in the had, dizzy and like she might pass out. Daughter who was with her witnessed her then put her head down and slump over and become unresponsive. The patient shortly thereafter woke up, daughter states that it would not have been more than a minute total. She did have bowel incontinence. She was a little confused briefly but recovered fairly quickly. Patient has a history of near syncopal episodes. She states sometimes stressors like if she gets a cut or other anxiety provoking stressor can cause her to feel like this. To her recollection she has never had a full syncopal episode from it before. She did not fall or hit her head, no trauma. Currently has a mild headache. Has been dealing with migraine off and on for the past week and this is a normal finding for her, this is not any different than usual. Also she has had a viral syndrome in the last week with some cough and congestion but states these symptoms have gotten quite a bit better. Denies 1 of 16 Narrative fever, denies neck pain, denies chest pain or difficulty breathing, denies numbness or tingling muscle weakness or any other acute complaints at this time, denies visual changes.). Event was witnessed. The patient felt faint and lost consciousness. At time of event, the patient was sitting. The patient had preceding symptoms of light-headedness. Had a single episode. The episode lasted (1 minutes). No injuries noted. (states her head feels a bit funny and has a mild headache). REVIEW OF SYSTEMS RESPIRATORY: No difficulty breathing. The patient has had a cough. CVS: No chest pain or palpitations. THROAT: No sore throat. GI: No abdominal pain, vomiting, diarrhea or black stools. : No difficulty with urination. NEUROLOGICAL: The patient has had a headache and dizziness. No weakness or numbness. CONSTITUTIONAL: No fever. SKIN: No skin rash. PAST HISTORY See nurses notes. Asthma Fibromyalgia Migraine Headache Surgeries: Appendectomy Back Surgery Cholecystectomy Partial hysterectomy Medications: no known home medications Allergies: Augmentin cephalexin SOCIAL HISTORY Heavy tobacco smoker. No alcohol use or drug use. 2 of 16 Narrative ADDITIONAL NOTES The nursing notes have been reviewed. PHYSICAL EXAM Vital Signs: Have been reviewed. Appearance: Alert. No acute distress. Eyes: Pupils equal, round and reactive to light. No nystagmus. Extraocular movements normal. ENT: Normal ENT inspection. TM's normal. Moist mucous membranes. Pharynx normal. Neck: Normal inspection. Neck supple. No meningeal signs. CVS: Normal heart rate. Heart sounds normal. Pulses normal. Respiratory: No respiratory distress. Painless inspiration. Breath sounds normal. Abdomen: Soft and nontender. No organomegaly. Back: Normal inspection. Skin: Skin warm and dry. Normal skin color. No rash. Extremities: Extremities exhibit normal ROM. No lower extremity edema. Neuro: Alert. Oriented X 3. Mood/affect normal. Speech normal. Cranial nerves normal (as tested). No cerebellar findings. No motor deficit. No sensory deficit. Reflexes normal. LABS, X-RAYS, AND EKG 12-LEAD EKG: EKG time: 11:08 12/30/2024. No acute process. No acute ischemia. Normal EKG. The study has been interpreted contemporaneously by me. Laboratory Tests: CBC + DIFF Final SIMEON: 12/30/2024 10:50:00 EDT MsgRcvd: 12/30/2024 11:55 EDT Lab Test Result Reference Status Received Comments 12/30/2024 11:55 CBC-COMPLETE CBC + DIFF Final EDT BLOOD COUNT 12/30/2024 11:55 WBC 4.7 x 10/UL 4.5 - 10.8 Final EDT 3 of 16 Narrative Lab Test Result Reference Status Received Comments 12/30/2024 11:55 RBC 5.21 x 10/UL 4.10 - 5.30 Final EDT 16.6 g/dl 12/30/2024 11:55 HEMOGLOBIN 12.0 - 16.0 Final Above high normal EDT 47.0 % 12/30/2024 11:55 HEMATOCRIT 34.0 - 46.0 Final Above high normal EDT 12/30/2024 11:55 MCV 90 fl 80 - 99 Final EDT 12/30/2024 11:55 (more content not included)... [facility] ED SUPER BILLon 12-30-2024 ED [facility] BILL [facility] [address] [place] [address] [phone] 12/30/2024 Patient: XU PUCKETT Sex: Female : 1985 Age: 39y Facility Professional Category Item Description Code Code Quantity Fee Total Nurse/E/M EMERGENCY 556113 1 $0.00 $0.00 DEPT VISIT HIGH SEVERITYFUNCJ (59990-15) Nurse/IV/IM/Infusions Hydration 203752 2 $0.00 $0.00 additional hour (69278) Nurse/IV/IM/Infusions IVP additional 743315 2 $0.00 $0.00 push (71830) Nurse/IV/IM/Infusions IVP initial (56157) 129965 1 $0.00 $0.00 Grand $0.00 Total Providers Gabe Abdi D.O. Chief Complaint SYNCOPE. 1 of 2 Superbil Principal Diagnosis Syncope of unknown cause. Acute migraine headache. No aura or status migrainosus. No poorly controlled headache or post traumatic headache. ICD-10 Codes R55: Syncope and collapse R51.9: Headache, unspecified G43.909: Migraine, unspecified, not intractable, without status migrainosus 2 of 2 [facility] ED VISIT SUMMARYon ED VISIT SUMMARY Visit Overview Visit Overview [place] [id number] [facility] [place] [address] [phone] 12/30/2024 Patient: XU PUCKETT Sex: Female : 1985 Age: 39y 12/30/2024 09:27 PM EDT ED Arrival:10:42 12/30/2024 EDT Status:not Recent Travel:no Language:eng Adv Directive: Isolation Status: Ethnicity:N Fall Risk:risk Infectious Disease Exposure:no Measurements:5'5 / 165.1 Self-Harm Status:risk Sepsis Screen:negative cm 180.0 lb / 81.6 kg Chief Complaint:SINGLE SYNCOPAL EPISODE, (Khushbu Meredith), and (Viral symptoms for approx. one week; glucose - 109) ALLERGIES Augmentin cephalexin HOME MEDICATIONS None PAST MEDICAL HISTORY / PROBLEMS 1 of 3 Visit Overview Asthma Fibromyalgia LNMP: Last normal menstrual period unknown Migraine Headache See nurses notes PAST SURGICAL HISTORY Appendectomy Back Surgery Cholecystectomy Partial hysterectomy SOCIAL HISTORY Smoking status: Yes Alcohol use: No Drug use: No ED COURSE MEDICATIONS GIVEN IN EMERGENCY DEPARTMENT 12:00 12/30/24 IV NS 0.9 % 1000 mL 500 mL/hr 14:14 12/30/24 KetorOLAC (Toradol) IVP 15 mg 14:15 12/30/24 DiphenhydrAMINE (Benadryl) IVP 50 mg 14:16 12/30/24 Reglan IVP 10 mg IV SITE INFORMATION INTAKE OUTPUT REASSESMENT (most recent) 11:00 12/30/24. GENERAL / NEURO / PSYCH: Oriented X 4. Appears in no acute distress. Alert. Speech within normal limits. HEENT: No facial asymmetry noted. Pupils equal, round and reactive to light. RESPIRATORY: Breath sounds within normal limits. Respirations not labored. SKIN: Skin is warm and dry. 2 of 3 Visit Overview VITAL SIGNS First Vitals Last Vitals Temp 10:56 12/30/24 97.3 F Temp 17:13 12/30/24 BP 10:56 12/30/24 131/80 BP 17:13 12/30/24 115/74 HR 10:56 12/30/24 76 HR 17:13 12/30/24 71 RR 10:56 12/30/24 18 RR 17:13 12/30/24 O2 Sat 10:56 12/30/24 95% RA O2 Sat 17:13 12/30/24 Pain 10:56 12/30/24 10 Pain 17:13 12/30/24 ETCO2 10:56 12/30/24 ETCO2 17:13 12/30/24 GCS 10:56 12/30/24 GCS 17:13 12/30/24 RTS 10:56 12/30/24 RTS 17:13 12/30/24 PROCEDURES NURSING INTERVENTIONS LABS / STUDIES LABS / STUDIES ORDERED CBC w Diff Chest 1V CMP CT Brain wo Cont EKG - ED HCG, Qual Serum Lactate, Serum MRA Brain Troponin-I Urinalysis Urine Drug Screen CLINICAL IMPRESSION ACUTE MIGRAINE HEADACHE. NO AURA OR STATUS MIGRAINOSUS. NO POORLY CONTROLLED HEADACHE OR POST TRAUMATIC HEADACHE SYNCOPE OF UNKNOWN CAUSE 3 of 3 Normal [facility] ED VITALS FLOW SHEETon 12-30 ED VITALS FLOW SHEET Vitals Vital Sign Flow Sheet [facility] [address] [facility] [place] [address] [phone] 12/30/2024 Patient: XU PUCKETT Sex: Female : 1985 Age: 39y Measurements Wt: 81.6 kg, Ht/Parish: 65.0 in, BMI: 29.95 Measured Time BP MAP HR RR O2Sat ETCO2 Temp Pain GCS RTS 17:13 12/30/2024 115/74 83 71 17:10 12/30/2024 69 95% 17:00 12/30/2024 61 98% 16:55 12/30/2024 64 97% 16:50 12/30/2024 65 97% 16:49 12/30/2024 102/62 74 62 16:45 12/30/2024 69 97% 16:40 12/30/2024 68 98% 16:35 12/30/2024 58 97% 16:30 12/30/2024 63 98% 16:25 12/30/2024 62 98% 16:20 12/30/2024 64 98% 16:19 12/30/2024 111/70 83 65 16:15 12/30/2024 65 98% 16:10 12/30/2024 62 98% 1 of 4 Vitals Measured Time BP MAP HR RR O2Sat ETCO2 Temp Pain GCS RTS 16:05 12/30/2024 62 98% 16:00 12/30/2024 62 97% 15:55 12/30/2024 65 98% 14:50 12/30/2024 60 96% 14:49 12/30/2024 101/68 80 62 14:45 12/30/2024 70 96% 14:40 12/30/2024 65 96% 14:35 12/30/2024 60 95% 14:30 12/30/2024 71 96% 14:25 12/30/2024 65 95% 14:20 12/30/2024 67 96% 14:19 12/30/2024 115/77 89 68 14:15 12/30/2024 67 96% 14:10 12/30/2024 73 96% 14:05 12/30/2024 66 97% 13:55 12/30/2024 69 98% 13:50 12/30/2024 66 97% 13:49 12/30/2024 104/70 78 65 13:45 12/30/2024 66 97% 13:40 12/30/2024 65 97% 13:35 12/30/2024 66 97% 13:30 12/30/2024 61 97% 13:25 12/30/2024 63 96% 13:20 12/30/2024 65 96% 13:19 12/30/2024 112/75 88 65 2 of 4 Vitals Measured Time BP MAP HR RR O2Sat ETCO2 Temp Pain GCS RTS 13:15 12/30/2024 67 96% 13:10 12/30/2024 70 97% 13:05 12/30/2024 72 98% 13:00 12/30/2024 68 98% 12:55 12/30/2024 71 98% 12:50 12/30/2024 69 98% 12:49 12/30/2024 123/68 86 71 12:45 12/30/2024 64 99% 12:40 12/30/2024 69 98% 12:35 12/30/2024 67 99% 12:30 12/30/2024 68 98% 12:25 12/30/2024 68 97% 12:20 12/30/2024 65 99% 12:19 12/30/2024 110/71 84 62 12:15 12/30/2024 66 98% 12:10 12/30/2024 65 98% 12:05 12/30/2024 64 98% 12:04 12/30/2024 115/76 91 64 12:00 12/30/2024 66 97% 11:45 12/30/2024 65 98% 11:40 12/30/2024 66 98% 11:35 12/30/2024 69 98% 11:30 12/30/2024 71 99% 11:26 12/30/2024 110/69 82 68 11:25 12/30/2024 67 95% 3 of 4 Vitals Measured Time BP MAP HR RR O2Sat ETCO2 Temp Pain GCS RTS 11:05 12/30/2024 69 97% 10:56 12/30/2024 131/80 97 76 18 95% RA 97.3 F 10 4 of 4 Normal [facility] LACTATEon 12-30-2024 Lactate [Moles/Vol] 0.6 mmol/L Normal 0.4 - 2.0 [facility] Comment on above: Performed By: #### 2 [id number] #### [facility],[address] [place] [address] MRV BRAINon 12-30-2024 MRV BRAIN [place] [address] Patient: XU PUCKETT Phone#: : [phone] Age: 39 Gender: F Pt. Type: ER Account: [id number] Location: 2 Ordering: DR. GABE ABDI Exam Date: 12/30/2024/15:09 Family Phys: HORTENSIA CHING Charge Code: 826493 Physician: Cascade Order #: [id number] Dose#: PROCEDURE: MRV BRAIN COMPARISON: None. INDICATIONS: Syncope TECHNIQUE: MR angiography was performed without intravenous gadolinium contrast material. Multiplanar images of the cerebral arteries were created and interpreted. FINDINGS: INTERNAL JUGULAR VEIN: No visible stenosis or filling defect. SIGMOID SINUS: No visible stenosis or filling defect. TRANSVERSE SINUS: No visible stenosis or filling defect. SUPERIOR SAGITTAL SINUS: No visible stenosis or filling defect. OTHER: Negative with no evidence of a vascular malformation. CONCLUSION: 1. There is no evidence of venous thrombus. 2. There is no evidence of focal parenchymal abnormality. Dictated by: Radha Brewster MD on 12/30/2024 at 16:29 Approved by: Radha Brewster MD on 12/30/2024 at 16:53 [facility] SERUM QUALon 12-30 EXTERNAL QC DONE? YES Normal [facility] Comment on above: Performed By: #### [id number] #### [facility],[address] [place] [address] INTERNAL QC PASS [facility] Comment on above: Performed By: #### 2 [id number] #### [facility] [facility],[address] [place] [address] SER Negative Normal NEGATIVE [facility] Comment on above: Performed By: #### 2 [id number] #### [facility],[address] [place] [address] TROPONINon 12-30-2024 HS TROPONIN 5.7 pg/mL Normal 0.0 - 51.4 [facility] Comment on above: Performed By: #### 2 [id number] #### [facility],[address] [place] [address] URINALYSISon 12-30-2024 Bilirubin Ql (U) Negative Normal NORMAL: NEGATIVE [facility] Comment on above: Performed By: #### 2 [id number] ####[facility],[address] [place] [address] 69420 Clarity (U) clear Normal NORMAL: CLEAR [facility] Comment on above: Performed By: #### 2 [id number] ####[facility],[address] [place] [address] 06407 Color (U) yellow Normal NORMAL: YELLOW [facility] Comment on above: Performed By: #### 2 [id number] ####[facility],[address] [place] [address] 99690 Glucose Ql (U) NORM Normal NORMAL: NORMAL [facility] Comment on above: Performed By: #### 2 [id number] ####[facility],[address] [place] [address] 75929 Hemoglobin Ql (U) Negative Normal NORMAL: NEGATIVE [facility] Comment on above: Performed By: #### 2 [id number] ####[facility],[address] [place] [address] 26883 Ketone Negative Normal NORMAL: NEGATIVE [facility] Comment on above: Performed By: #### 2 [id number] ####[facility],[address] [place] [address] 26024 Leukocytes Negative Normal NORMAL: NEGATIVE [facility] Comment on above: Performed By: #### 2 66023 ####[facility],[address] [place] [address] 72284 Nitrite Ql (U) Negative Normal NORMAL: NEGATIVE [facility] Comment on above: Performed By: #### 2 [id number] ####[facility],[address] [place] [address] 13418 pH (U) 6 [pH] Normal NORMAL: 5.0-8.0 [facility] Comment on above: Performed By: #### 2 85214 ####[facility],[address] [place] [address] Protein Ql (U) 30 Abnormal NORMAL: NEGATIVE [facility] Comment on above: Performed By: #### 2 73369 ####[facility],[address] [place] [address] Sp [place] 1.015 Normal NORMAL: 1.010-1.030 [facility] Comment on above: Performed By: #### 2 11962 ####[facility],[address] [place] [address] Specimen Type R Normal [facility] Comment on above: Performed By: #### 2 [id number] ####[facility],[address] [place] [address] Urinalysis dipstick W Reflex Microscopic panel (U) NOT INDICATED Normal [facility] Comment on above: Performed By: #### 2 [id number] ####[facility],[address] [place] [address] Urobilinog NORM Normal NORMAL: NORMAL [facility] Comment on above: Performed By: #### 2 [id number] ####[facility],[address] [place], [place] [id number] ACETYLCHOLINE RECEPTOR DAVID NG ANTIBODYon 03-06-2024 ACETYLCHOLINE RECEPTOR BINDING ANTIBODY <0.30 Normal [facility] Comment on above: Result Comment: Reference Ranges for Acetylcholine Receptor Binding Antibody: Negative: < or =0.30 nmol/L Equivocal: 0.31-0.49 nmol/L Positive: > or =0.50 nmol/L Performed By: #### 4 420, 809, 249, 7743 #### [facility] [address], [address] [place] [address] Business Education Teacher: Damien Demspey MD #### 206 #### [facility], [address] [place] [address] Business Education Teacher: La Nena Cherry MD,PhD,YUKI RONALD SCREEN, IFA, W/REFL TITE R AND PATTERNon 03-06-2024 RONALD SCREEN, IFA Negative Normal NEGATIVE [facility] Comment on above: Result Comment: RONALD IFA is a first line screen for detecting the presence of up to approximately 150 autoantibodies in various autoimmune diseases. A negative RONALD IFA result suggests an RONALD-associated autoimmune disease is not present at this time, but is not definitive. If there is high clinical suspicion for Sjogren's syndrome, testing for anti-SS-A/Ro antibody should be considered. Anti-Domi-1 antibody should be considered for clinically suspected inflammatory myopathies. AC-0: Negative International Consensus on RONALD Patterns (https://doi.org/10.1515/ajqs-6792-0120) For additional information, please refer to http://education.PurePhoto/faq/NXG942 (This link is being provided for informational/ educational purposes only.) Performed By: #### 4 420, 809, 249, 4418 #### [facility] [address] [facility], [address] [place], [place] [id number] Business Education Teacher: Damien Dempsey MD #### 206 #### [facility], [address] [place] [address] Business Education Teacher: La Nena Cherry MD,PhD,YUKI C-REACTIVE PROTEINon 024 CRP [Mass/Vol] mg/L Normal <8.0 [facility] Comment on above: Performed By: #### 4 420, 809, 249, 4418 #### [facility] [address] [facility], [address] [place], [place] [id number] Business Education Teacher: Damien Dempsey MD #### 206 #### [facility], [address] [place] [address] Business Education Teacher: La Nena Cherry MD,PhD,YUKI RHEUMATOID FACTORon 03-06-20 24 RHEUMATOID FACTOR <10 Normal <14 [facility] Comment on above: Performed By: #### 4 420, 809, 249, 4418 #### [facility] [place] [address] Business Education Teacher: Damien Dempsey MD #### 206 #### [facility], [address] [place] [address] Business Education Teacher: La Nena Cherry MD,PhD,YUKI SED RATE BY MODIFIED WESTERG RENon 03-06-2024 SED RATE BY MODIFIED WESTERGREN 2 mm/h Normal < OR = 20 [facility] Comment on above: Performed By: #### 4 420, 809, 249, 4418 #### [facility] [address], [address] [place] [address] Business Education Teacher: Damien Dempsey MD #### 206 #### [facility], [address] [place] [address] Business Education Teacher: La Nena Cherry MD,PhD,YUKI Acetylcholine receptor david ng Ab (S) [Moles/Vol]on 03-02-2024 <0.30 Normal [employer] No Panel Informationon 03-02 2 mm/h Normal [employer] Negative Normal [employer] <10 Normal [employer] <3.0 Normal [employer] MRI Spine Lumbar w/ + w/o Co ntraston 10-20-2018 MRI Spine Lumbar w/ + w/o Contrast Patient Name: XU PUCKETT MRI Exam Date/Time 10/20/2018 13:31:35 EST Exam MRI Spine Lumbar w/ + w/o Contrast Ordering Physician MD SANTO, GREGORY Herring Accession Number [id number] CPT4 Codes 98005 () Reason For Exam status post lumbar surgery Report Examination: MRI lumbar spine with and without gadolinium Indication: status post lumbar surgery Technique: Multiplanar multi-sequence MRI images of the lumbar spine were obtained. Post gadolinium T1 axial and sagittal images were also acquired following intravenous administration of 14 mL Multihance. Findings: The lumbar vertebral bodies are in gross anatomic alignment. There is no acute fracture. There are no focal marrow replacing lesions. Disc desiccation is present at L5/S1. The disc spaces are grossly maintained. The conus terminates at approximately the L1/L2 level. The paraspinal musculature is grossly unremarkable. At the L1/L2 level, the central canal and foramina are patent. At the L2/L3 level, the central canal and foramina are patent. At the L3/L4 level, the central canal and foramina are patent. At the L4/L5 level, minimal diffuse posterior disc bulging is present. The central canal and foramina are patent. There are mild degenerative facet changes. At the L5/S1 level, right-sided laminotomy defect is present. Mild broad-based posterior disc bulging is present. Mild signal changes and enhancement are present in the right paracentral disc, likely related to prior surgery. Scar/relation tissue is present along the right lateral recess and right aspect of the thecal sac. The central canal is grossly patent. Mild disc bulging extending into the right and left foraminal regions in addition to mild facet hypertrophy on the right causes wtzn-ol-[id number] right-sided foraminal narrowing. There is also ualj-ic-vjcltnvn left-sided foraminal stenosis. Impression: Mild posterior disc bulging at L5/S1 with postsurgical changes in the right paracentral disc, right-sided laminotomy changes in addition to scar/granulation tissue along the right lateral recess and right thecal sac. Report Dictated on Final Dictated: 10/20/2018 2:32 pm Dictating Physician: MD WONG KRIKOR Signed Date and Time: 10/20/2018 2:37 pm Signed by: MD WONG KRIKOR Transcribed Date and Time: 10/20/2018 2:32 Normal [facility] Laboratory - Chemistry and C hemistry - challengeon 09-27-2018 Bilirubin Ql (U) Negative Normal [employer]. Ketones Ql (U) Negative Normal [employer], [employer]. pH (U) 5.5 [pH] Normal [employer].; [employer], [employer]. Specific gravity (U) [Rel density] 1.030 Abnormal [employer]. Urobilinogen Qn (U) 0.2 mg/dL Normal [employer]. Laboratory - Hematology and Cell countson 07-01-2018 Hemoglobin Ql (U) Negative Normal [employer]. Laboratory - Specimen inform ationon 07-01-2018 Appearance (U) Clear Normal [employer].; [employer]. Color (U) Yellow Normal [employer]. Laboratory - Urinalysison Glucose Test strip (U) [Mass/Vol] Negative Normal [employer].; [employer], [employer]. Leukocyte esterase Test strip Ql (U) Negative Normal [employer].; [employer], [employer]. Nitrite Ql (U) Negative Normal [facility] [employer].; [employer]. Protein Ql (U) Negative Normal [facility] [employer].; [employer], [employer]. Laboratory - Chemistry and C hemistry - challengeon 03-16-2018 Bilirubin Ql (U) Negative Normal [employer], [employer]. Ketones Ql (U) Negative Normal [employer].; [employer], [employer]. pH (U) 5.5 [pH] Normal [employer].; [employer], [employer]. Specific gravity (U) [Rel density] 1.025 Normal [employer].; [employer]. Urobilinogen Qn (U) 0.2 mg/dL Normal [employer].; [employer]. Laboratory - Hematology and Cell countson 03-16-2018 Hemoglobin Ql (U) Negative Normal [employer].; [employer]. Laboratory - Specimen inform ationon 03-16-2018 Appearance (U) clear Normal [facility] [employer].; [employer] Color (U) yellow Normal [employer].; [employer] Laboratory - Urinalysison Glucose Test strip (U) [Mass/Vol] Negative Normal [employer].; [employer] Leukocyte esterase Test strip Ql (U) Negative Normal [employer].; [employer]. Nitrite Ql (U) Negative Normal [facility] [employer].; [employer], [employer]. Protein Ql (U) Negative Normal [facility].; [employer], [employer]. Laboratory - Chemistry and C hemistry - challengeon 09-21-2017 Bilirubin Ql (U) small Abnormal [facility].; [employer], [employer]. Ketones Ql (U) trace Normal [facility] [employer].; [employer], [employer]. pH (U) 5.5 [pH] Normal [employer].; [employer], [employer]. Specific gravity (U) [Rel density] 1.030 Abnormal [employer].; [employer], [employer]. Urobilinogen Qn (U) 1.0 mg/dL Normal [facility] [employer].; [employer], [employer]. Laboratory - Hematology and Cell countson 09-21-2017 Hemoglobin Ql (U) Negative Normal [employer].; [employer] Laboratory - Specimen inform ationon 09-21-2017 Appearance (U) Clear Normal [facility] [employer].; [employer], [employer]. Color (U) yellow Normal [employer].; [employer], [employer]. Laboratory - Urinalysison Glucose Test strip (U) [Mass/Vol] Negative Normal [employer].; [employer]. Leukocyte esterase Test strip Ql (U) trace Normal [employer].; [employer]. Nitrite Ql (U) Negative Normal [facility] [place] [employer]. Protein Ql (U) Negative Normal [facility].; [employer]. Laboratory - Chemistry and C hemistry - challengeon 05-07-2017 Bilirubin Ql (U) Negative Normal [facility].; [employer]. Ketones Ql (U) Negative Normal [facility].; [employer]. pH (U) 6.0 [pH] Normal [facility].; [employer]. Specific gravity (U) [Rel density] 1.025 Normal [facility].; [employer] Urobilinogen Qn (U) 0.2 mg/dL Normal [facility].; [employer]. Laboratory - Hematology and Cell countson 05-07-2017 Hemoglobin Ql (U) Trace, hemolyzed Abnormal [facility] [place] [employer] Laboratory - Microbiology an d Antimicrobial susceptibilityon 05-07-2017 Amoxicillin+Clavulana te [Susc] S (4) Normal [facility].; [employer]. Work Phone: Ampicillin [Susc] R (>=32) Normal [facility].; [place] [employer]. Work Phone: Ampicillin+Sulbactam [Susc] I (16) Normal [facility].; [employer]. Work Phone: Bacteria identified Cx Nom (U) Normal [facility].; [employer]. Bacteria identified Cx Nom (Unsp spec) Abnormal [facility].; [employer]. Cefepime [Susc] S (<=1) Normal [facility].; [employer]. Work Phone: cefTAZidime [Susc] S (<=1) Normal [facility]; [employer]. Work Phone: cefTRIAXone [Susc] S (<=1) Normal [facility]; [facility] Work Phone: Ciprofloxacin [Susc] S (<=0.25) Normal [facility]; [facility], [facility]. Work Phone: Ertapenem [Susc] S (<=0.5) Normal [facility]; [facility], [facility]. Work Phone: Gentamicin [Susc] S (<=1) Normal [facility]; [facility], [facility] Work Phone: Imipenem [Susc] S (<=0.25) Normal [facility]; [facility], [facility]. Work Phone: levoFLOXacin [Susc] S (<=0.12) Normal [facility]; [facility], [facility] Work Phone: Nitrofurantoin [Susc] S (32) Normal [facility]; [facility], [facility] Work Phone: Piperacillin+Tazobact am [Susc] S (<=4) Normal [facility]; [facility], [facility]. Work Phone: Tobramycin [Susc] S (<=1) Normal [facility]; [facility], [facility] Work Phone: Trimethoprim+Sulfamet hoxazole [Susc] R (>=320) Normal [facility]; [facility], [facility] Work Phone: Laboratory - [facility]imen [facility] 05-07-2017 Appearance (U) Cloudy Abnormal [facility]; [facility], [facility] Color (U) Dark Yellow Normal [facility]; [facility] Specimen source Nom (Unsp spec) URINE-URINE Normal [facility]; [employer]. Laboratory - Urinalysison Glucose Test strip (U) [Mass/Vol] Negative Normal [facility] [employer].; [employer]. Leukocyte esterase Test strip Ql (U) Negative Normal [place] [employer].; [employer], [employer]. Nitrite Ql (U) Positive Abnormal [facility] [employer].; [employer], [employer]. Protein Ql (U) Negative Normal [facility].; [employer]. Laboratory - Chemistry and C hemistry - challengeon 04-09-2017 Bilirubin Ql (U) Negative Normal [facility].; [employer]. Ketones Ql (U) Negative Normal [facility].; [employer], [employer]. pH (U) 5.5 [pH] Normal [place] [employer].; [employer]. Specific gravity (U) [Rel density] 1.025 Normal [place] [employer].; [employer]. Urobilinogen Qn (U) 0.2 mg/dL Normal [facility].; [employer]. Laboratory - Hematology and Cell countson 04-09-2017 Hemoglobin Ql (U) trace, hemolyzed Abnormal [facility].; [employer]. Laboratory - Specimen inform ationon 04-09-2017 Appearance (U) Cloudy Abnormal [facility].; [employer]. Color (U) yellow Normal [place] [employer].; [employer]. Laboratory - Urinalysison Glucose Test strip (U) [Mass/Vol] Negative Normal [place] [employer].; [employer], [employer]. Leukocyte esterase Test strip Ql (U) trace Normal [place] [employer].; [employer]. Nitrite Ql (U) Positive Abnormal [facility].; [employer], [employer]. Protein Ql (U) Negative Normal [facility].; [employer], [employer]. Laboratory - Chemistry and C hemistry - challengeon 07-31-2016 25-hydroxyvitamin D3 [Mass/Vol] 28.46 ng/mL Abnormal 30.00 - 100 ng/mL [facility].; [employer]. Laboratory - Chemistry and C hemistry - challengeon 05-19-2014 Bilirubin Ql (U) Negative Normal [facility].; [employer] Ketones Ql (U) Negative Normal [facility].; [employer]. pH (U) 7.5 [pH] Normal [facility].; [employer]. Specific gravity (U) [Rel density] 1.020 Normal [facility]; [employer] Urobilinogen Qn (U) 0.2 mg/dL Normal [facility]; [employer]. Laboratory - Hematology and Cell countson 05-19-2014 Hemoglobin Ql (U) Negative Normal [facility].; [employer]. Laboratory - Specimen inform ationon 05-19-2014 Appearance (U) Cloudy Abnormal [facility]; [employer]. Color (U) Yellow Normal [facility]; [employer]. Laboratory - Urinalysison Glucose Test strip (U) [Mass/Vol] Negative Normal [facility].; [employer]. Leukocyte esterase Test strip Ql (U) Negative Normal [facility].; [employer]. Nitrite Ql (U) Negative Normal [facility].; [employer]. Protein Ql (U) 30 mg/dL Abnormal [facility].; [employer]. Laboratory - Microbiology an d Antimicrobial susceptibilityon 03-22-2014 B. burgdorferi Ab IA Qn (S) LYME DISEASE AB W/RFX IGG,IGM Normal [place] [employer] [facility]; [employer]. Laboratory - Chemistry and C hemistry - challengeon 03-01-2014 Free E2 [Mass/Vol] ESTRADIOL, FREE Normal [facility]; [employer]. Laboratory - Chemistry and C hemistry - challengeon 02-20-2014 Albumin [Mass/Vol] 4.4 g/dL Normal 3.4 - 4.8 g/dL [facility].; [facility] Albumin [Mass/Vol] 1.7 g/dL Abnormal 0.9 - 1.6 [facility]; [facility]. ALP [Catalytic activity/Vol] 56 U/L Normal 38 - 126 U/L [facility]; [facility] ALT [Catalytic activity/Vol] 24 U/L Normal 8 - 35 U/L [facility]; [facility]. AST [Catalytic activity/Vol] 26 U/L Normal 13 - 39 U/L [facility]; [facility] Bilirubin [Mass/Vol] 1.0 mg/dL Normal 0.0 - 1 .5 mg/dL [facility]; [facility], [facility] Calcium [Mass/Vol] 9.2 mg/dL Normal 8.6 - 10. 2 mg/dL [facility]; [facility] Chloride [Moles/Vol] 105 mmol/L Normal 98 - 10 7 mmol/L [facility]; [facility], [facility]. CO2 [Moles/Vol] 28.0 mmol/L Normal 13.0 - 29.0 mmol/L [facility]; [facility] Comprehensive metabolic 2000 panel CMP with eGFR Normal [facility]; [facility] Creatinine [Mass/Vol] 0.8 mg/dL Normal 0.6 - 1.2 mg/dL [facility]; [facility], [facility] Follitropin Qn FSH Normal [facility]; [facility], [facility] Free T4 [Mass/Vol] 0.86 ng/dL Normal 0.61 - 1. 12 ng/dL [facility]; [facility] Work Phone: GFR/1.73 sq M.predicted among blacks MDRD (S/P/Bld) [Vol rate/Area] mL/min/{1.73_m2} Normal 60 - 999 {ML/MINUTE} [facility].; [facility]. GFR/1.73 sq M.predicted MDRD (S/P/Bld) [Vol rate/Area] mL/min/{1.73_m2} Normal 60 - 999 {ML/MINUTE} [facility].; [facility] Globulin (S) [Mass/Vol] 2.6 g/dL Normal 1.5 - 3.8 g/dL [facility].; [facility]. Glucose [Mass/Vol] 94 mg/dL Normal 74 - 106 mg/dL [facility].; [place] [employer] [facility]. Potassium [Moles/Vol] 3.5 mmol/L Normal 3.5 - 5.1 mmol/L [facility].; [place] [employer] [facility] Protein [Mass/Vol] 7.0 g/dL Normal 6.4 - 8.3 g/dL [facility].; [place] [employer] [facility] Sodium [Moles/Vol] 139 mmol/L Normal 136 - 145 mmol/L [facility].; [place] [employer] [facility]. TSH Qn 2.09 m[IU]/L Normal 0.34 - 5.60 {uIU/ml} [facility] [facility].; [place] [employer] [facility]. Urea nitrogen [Mass/Vol] 11 mg/dL Normal 6 - 20 mg/dL [facility].; [place] [employer], [facility] Urea nitrogen/Creatinine [Mass ratio] 14 {ratio} Normal 0 - 30 {ratio} [facility].; [place] [employer] [facility]. Laboratory - Hematology and Cell countson 02-20-2014 Basophils (Bld) [#/Vol] 0.10 {3/UL} Normal 0.00 - 0.10 {3/UL} [facility].; [place] [employer], [facility]. Basophils/100 WBC (Bld) 0.8 % Normal 0.0 - 2.0 % [facility].; [place] [employer] [facility] CBC W Auto Differential panel (Bld) CBC Normal [facility].; [place] [employer] [facility] Eosinophils (Bld) [#/Vol] 0.20 {3/UL} Normal 0.00 - 0.50 {3/UL} [place] [employer] [facility].; [employer]. Eosinophils/100 WBC (Bld) 2.6 % Normal 0.0 - 7.0 % [facility].; [place] [employer], [employer]. Erythrocyte distribution width (RBC) [Ratio] 12.6 % Normal 12.0 - 15.6 % [facility].; [place] [employer], [employer]. Hematocrit (Bld) [Volume fraction] 39.5 % Normal 34.0 - 46.0 % [facility], [facility].; [place] [employer], [facility]. Hemoglobin (Bld) [Mass/Vol] 14.0 g/dL Normal 12.0 - 16.0 g/dL [facility].; [place] [employer], [facility]. Lymphocytes (Bld) [#/Vol] 1.90 {3/UL} Normal 0.80 - 2.80 {3/UL} [place] [employer], [facility].; [place] [employer], [employer]. Lymphocytes/100 WBC (Bld) 26.1 % Normal 20.0 - 45.0 % [place] [employer].; [employer], [place]. MCH (RBC) [Entitic mass] 31 pg Normal 27 - 33 pg [place] [employer].; [place] [employer] MCHC (RBC) [Mass/Vol] 35 {X10_3} Normal 32 - 3 6 {X10_3} [place] [employer], [employer].; [employer], [place]. MCV (RBC) [Entitic vol] 88 fL Normal 80 - 99 fL [place] [employer] [facility].; [place] [employer], [facility]. Monocytes (Bld) [#/Vol] 0.50 {3/UL} Normal 0.20 - 1.00 {3/UL} [employer], [place].; [place] [employer], [employer] Monocytes/100 WBC (Bld) 6.9 % Normal 0.0 - 10.0 % [place] [employer], [place].; [place] [employer], [employer] Neutrophils (Bld) [#/Vol] 4.60 {3/UL} Normal 1.50 - 7.10 {3/UL} [employer].; [employer] Neutrophils/100 WBC (Bld) 63.6 % Normal 46.0 - 76.0 % [place] [employer].; [employer]. Platelet mean volume (Bld) [Entitic vol] 8.7 fL Normal 6.6 - 10.5 fL [facility] [employer].; [place] [employer], [place]. Platelets (Bld) [#/Vol] 210 {3/UL} Normal 150 - 450 {3/UL} [place] [employer].; [place] [employer], [place]. RBC (Bld) [#/Vol] 4.50 {6/UL} Normal 4.10 - 5.3 0 {6/UL} [place] [employer].; [employer]. WBC (Bld) [#/Vol] 7.3 {3/UL} Normal 4.5 - 10.8 {3/UL} [employer].; [employer]. No Panel Informationon 02-20 AGE 28 {years} Normal [place] [employer].; [place] [employer]. 28 {years} Normal [place] [employer].; [employer]. Laboratory - Cytologyon 11-06 Microscopic observation Cyto stain Nom (Cvx) Normal [employer].; [employer]. Laboratory - Chemistry and C hemistry - challengeon 11-19-2013 Glucose [Mass/Vol] 94 mg/dL Normal 65 - 99 mg/dL [facility] [employer].; [employer]. Laboratory - Hematology and Cell countson 11-19-2013 Basophils (Bld) [#/Vol] 20 {Cells}/uL Normal 0 - 200 {Cells}/uL [place] [employer].; [employer], [place]. Basophils/100 WBC (Bld) 0 % Normal [employer].; [employer]. Eosinophils (Bld) [#/Vol] 230 {Cells}/uL Normal 15 - 500 {Cells}/uL [place] [employer].; [employer], [place]. Eosinophils/100 WBC (Bld) 4 % Normal [employer].; [employer]. Erythrocyte distribution width (RBC) [Ratio] 13.1 % Normal 11.0 - 15.0 % [facility], [facility].; [facility], [facility]. Hematocrit (Bld) [Volume fraction] 43.4 % Normal 35.0 - 45.0 % [facility], [facility].; [facility], [facility]. Hemoglobin (Bld) [Mass/Vol] 15.0 g/dL Normal 11.7 - 15.5 g/dL [facility], [facility].; [facility], [facility]. Lymphocytes (Bld) [#/Vol] 1870 {Cells}/uL Normal 850 - 3900 {Cells}/uL [facility], [facility].; [facility], [facility]. Lymphocytes/100 WBC (Bld) 33 % Normal [facility], [facility].; [facility], [facility]. MCH (RBC) [Entitic mass] 30.8 pg Normal 27.0 - 33.0 PG [facility], [facility].; [facility], [facility]. MCHC (RBC) [Mass/Vol] 34.4 g/dL Normal 32.0 - 36.0 g/dL [facility], [facility].; [facility], [facility]. MCV (RBC) [Entitic vol] 89.4 fL Normal 80.0 - 100.0 fL [facility], [facility].; [facility], [facility]. Monocytes (Bld) [#/Vol] 440 {Cells}/uL Normal 200 - 950 {Cells}/uL [facility], [facility].; [facility], [facility]. Monocytes/100 WBC (Bld) 8 % Normal [facility], [facility].; [facility], [facility]. Neutrophils (Bld) [#/Vol] 3150 {Cells}/uL Normal 1500 - 7800 {Cells}/uL [facility], [facility].; [place] [employer], [facility]. Neutrophils/100 WBC (Bld) 55 % Normal [facility], [facility].; [facility], [employer] Platelets (Bld) [#/Vol] 205 10*3/uL Normal 140 - 400 10*3/uL [facility], [facility].; [place] [employer] [facility] RBC (Bld) [#/Vol] 4.86 10*6/uL Normal 3.80 - 5.1 0 10*6/uL [facility], [facility].; [employer]. WBC (Bld) [#/Vol] 5.7 10*3/uL Normal 3.8 - 10.8 10*3/uL [place] [employer].; [employer]. Laboratory - Chemistry and C hemistry - challengeon 11-04-2013 TSH Qn 1.70 m[IU]/L Normal 0.40 - 4.50 {mIU/L} [facility].; [employer]. Laboratory - Microbiology an d Antimicrobial susceptibilityon 01-01-2013 S. pyogenes Ag EIA Ql (Throat) Negative Normal [facility] [employer].; [employer]. Laboratory - Chemistry and C hemistry - challengeon 03-31-2011 Bilirubin Ql (U) Negative Normal [facility] [employer].; [employer]. Ketones Ql (U) Negative Normal [facility].; [employer]. pH (U) 5.5 [pH] Normal 4.6 - 8.0 [place] [employer].; [employer]. Specific gravity (U) [Rel density] 1.020 Normal 1.001 - 1.025 [place] [employer].; [employer]. Laboratory - Hematology and Cell countson 03-31-2011 Hemoglobin Ql (U) small Abnormal [place] [employer].; [employer]. Laboratory - Microbiology an d Antimicrobial susceptibilityon 03-31-2011 Bacteria identified Cx Nom (U) Negative Normal [facility] [employer].; [employer]. Laboratory - Specimen inform ationon 03-31-2011 Appearance (U) clear Normal [facility].; [employer]. Color (U) yellow Normal [employer].; [employer]. Laboratory - Urinalysison Glucose Test strip (U) [Mass/Vol] Negative Normal [place] [employer].; [employer]. Leukocyte esterase Test strip Ql (U) trace Normal [place] [employer].; [employer]. Nitrite Ql (U) Negative Normal [facility].; [employer]. Protein Ql (U) Negative Normal [facility].; [employer]. No Panel Informationon 03-31 UA - UROBILINOGEN 1.0 mg/dL Normal [facility] [employer] [facility].; [employer]. 1.0 mg/dL Normal [facility] [employer].; [employer]. Laboratory - Urinalysison Glucose Test strip (U) [Mass/Vol] Negative Normal [place] [employer].; [employer]. Protein Ql (U) Negative Normal [facility].; [employer], [place]. Laboratory - Urinalysison Glucose Test strip (U) [Mass/Vol] Negative Normal [place] [employer].; [employer], [place]. Protein Ql (U) Negative Normal [facility].; [employer], [place]. Laboratory - Urinalysison Glucose Test strip (U) [Mass/Vol] Negative Normal [place] [employer].; [employer]. Protein Ql (U) Negative Normal [facility].; [employer], [place]. Laboratory - Chemistry and C hemistry - challengeon 02-26-2011 Bilirubin Ql (U) Small Abnormal [facility].; [employer], [place]. Ketones Ql (U) Trace Abnormal [facility].; [employer], [place]. pH (U) 7.0 [pH] Normal 4.6 - 8.0 [place] [employer].; [employer]. Specific gravity (U) [Rel density] 1.025 Normal 1.001 - 1.025 [place] [employer].; [employer]. Laboratory - Hematology and Cell countson 02-26-2011 Hemoglobin Ql (U) Negative Normal [place] [employer].; [employer]. Laboratory - Specimen inform ationon 02-26-2011 Appearance (U) Clear Normal [facility].; [employer]. Color (U) Yellow Normal [employer].; [employer]. Laboratory - Urinalysison Glucose Test strip (U) [Mass/Vol] Negative Normal [facility].; [employer]. Leukocyte esterase Test strip Ql (U) Small Abnormal [facility].; [place] [employer], [place]. Nitrite Ql (U) Negative Normal [facility].; [employer], [place]. Protein Ql (U) 30 mg/dL Abnormal [facility].; [employer], [place]. No Panel Informationon 02-26 UA - UROBILINOGEN 1.0 mg/dL Normal [facility].; [place] [employer]. 1.0 mg/dL Normal [place] [employer] [facility].; [employer], [place]. Laboratory - Urinalysison Glucose Test strip (U) [Mass/Vol] Negative Normal [facility].; [employer], [place]. Protein Ql (U) Negative Normal [facility].; [employer], [place]. No Panel Informationon 02-17 STREP GROUP B CULTURE Negative Normal [facility].; [employer]. Negative Normal [place] [employer].; [employer], [place]. Laboratory - Hematology and Cell countson 02-03-2011 Hemoglobin (Bld) [Mass/Vol] 13.1 g/dL Normal 11.5 - 14.2 g/dL [facility].; [employer], [place]. Laboratory - Urinalysison Glucose Test strip (U) [Mass/Vol] Negative Normal [facility] [employer] [facility].; [employer], [place]. Protein Ql (U) Negative Normal [facility] [employer].; [employer], [place]. Laboratory - Urinalysison Glucose Test strip (U) [Mass/Vol] Negative Normal [place] [employer].; [employer]. Protein Ql (U) Negative Normal [facility] [employer].; [employer], [place]. Laboratory - Chemistry and C hemistry - challengeon 12-11-2010 Glucose post dose glucose [Interp] 104 Normal 70 - 140 [place] [employer].; [employer]. Laboratory - Hematology and Cell countson 12-11-2010 Hemoglobin (Bld) [Mass/Vol] 12.7 g/dL Normal 11.5 - 14.2 g/dL [facility].; [facility], [facility]. No Panel Informationon 12-11 12.7 g/dL Normal 11.5 - 14.2 g/dL [facility].; [facility], [facility]. Laboratory - Urinalysison Glucose Test strip (U) [Mass/Vol] Negative Normal [facility].; [facility], [facility]. Protein Ql (U) Negative Normal [facility].; [place] [employer] [facility], [facility]. Laboratory - Microbiology an d Antimicrobial susceptibilityon 11-11-2010 S. pyogenes Ag EIA Ql (Throat) Negative Normal [facility].; [place] [employer] [facility], [facility]. Laboratory - Urinalysison Glucose Test strip (U) [Mass/Vol] Negative Normal [facility].; [place] [employer] [facility], [facility]. Protein Ql (U) Negative Normal [facility].; [place] [employer] [facility], [place]. Laboratory - Chemistry and C hemistry - challengeon 10-14-2010 AFP [Mass/Vol] 42.4 ng/mL Abnormal 0 - 16 ng/mL [facility].; [place] [employer] [facility] E3 [Mass/Vol] 0.94 Normal [facility].; [place] [employer] [facility], [facility]. HCG.beta subunit Qn 15.00 m[IU]/mL Abnormal 0 - 3. 0 m[iU]/mL [facility].; [place] [employer] [facility], [facility]. Inhibin A [MoM] [address] [facility].; [place] [employer] [facility], [facility]. Laboratory - Urinalysison Glucose Test strip (U) [Mass/Vol] Negative Normal [facility].; [place] [employer] Protein Ql (U) Negative Normal [facility].; [place] [employer], [employer] No Panel Informationon 10-14 AFP ADJUSTED MOM 0.94 Normal [facility].; [facility] DS SCREEN Negative Normal [facility], [facility].; [facility] ESTRIOL MOM 1.15 Normal [facility], [facility].; [facility] HCG MOM 0.72 Normal [facility], [facility].; [facility]. INHIBIN A MOM 1.87 Normal [facility], [facility].; [facility] OPEN NTD SCREEN Negative Normal [facility], [facility].; [facility] RISK FOR DOWN BASED ON AGE 1:1102 Normal [facility], [facility].; [facility], [facility]. RISK FOR DOWN BASED ON SCR 1:2809 Normal [facility], [facility].; [facility], [facility]. RISK FOR NTD (OSB) < 1:5000 Normal [facility], [facility].; [place] [employer] [facility], [facility] SCREEN FOR TRISOMY 18 Negative Normal [facility], [facility].; [facility] TRISOMY 18 RISK BASED ON SCR 1:5000 Normal [facility], [facility].; [facility] 1.87 Normal [facility], [facility].; [facility] 1.15 Normal [facility], [facility].; [facility] 0.72 Normal [facility], [facility].; [facility] 0.94 Normal [facility], [facility].; [place] [employer] [facility] 1:5000 Normal [facility], [facility].; [place] [employer] 1:2809 Normal [facility], [facility].; [facility] 1:1102 Normal [facility], [facility].; [facility] < 1:5000 Normal [facility], [facility].; [place] [employer] [facility], [facility] Negative Normal [facility], [facility].; [facility], [facility]. Laboratory - Urinalysison Glucose Test strip (U) [Mass/Vol] Negative Normal [facility], [facility].; [place] [employer] Protein Ql (U) Negative Normal [facility], [facility].; [place] [employer] Laboratory - Blood bankon ABO group Nom (Bld) AB Normal [facility].; [facility] Blood group antibody screen Ql Negative Normal [facility].; [employer]. Laboratory - Chemistry and C hemistry - challengeon 08-19-2010 Bilirubin Ql (U) Negative Normal [facility].; [place] [employer] Ketones Ql (U) Negative Normal [facility].; [place] [employer] pH (U) 5.5 [pH] Normal 4.6 - 8.0 [facility]; [employer] Specific gravity (U) [Rel density] 1.010 Normal 1.001 - 1.025 [place] [employer] [facility]; [employer]. Laboratory - Hematology and Cell countson 08-19-2010 Basophils (Bld) [#/Vol] 30 {Cells}/uL Normal 0 - 200 {Cells}/uL [facility].; [place] [employer] Basophils/100 WBC (Bld) 0 % Normal 0 - 2 % [facility]; [place] [employer]. Eosinophils (Bld) [#/Vol] 50 {Cells}/uL Normal 15 - 500 {Cells}/uL [facility].; [employer]. Eosinophils/100 WBC (Bld) 1 % Normal 0 - 8 % [facility].; [employer]. Erythrocyte distribution width (RBC) [Ratio] 12.5 % Normal 11.0 - 15.0 % [facility].; [employer]. Hematocrit (Bld) [Volume fraction] 38.6 % Normal 35.0 - 45.0 % [facility].; [employer]. Hemoglobin (Bld) [Mass/Vol] 14.0 g/dL Normal 11.7 - 15.5 g/dL [place] [employer] [facility].; [employer]. Hemoglobin Ql (U) Negative Normal [facility].; [employer]. Lymphocytes (Bld) [#/Vol] 1480 {Cells}/uL Normal 850 - 3900 {Cells}/uL [facility] [employer].; [employer]. Lymphocytes/100 WBC (Bld) 23 % Normal 15 - 49 % [facility]; [facility] MCH (RBC) [Entitic mass] 33.6 pg Abnormal 27.0 - 33.0 PG [facility]; [facility] MCHC (RBC) [Mass/Vol] 36.2 g/dL Abnormal 32.0 - 36.0 g/dL [facility]; [facility] MCV (RBC) [Entitic vol] 92.9 fL Normal 80.0 - 100.0 fL [facility]; [facility] Monocytes (Bld) [#/Vol] 370 {Cells}/uL Normal 200 - 950 {Cells}/uL [facility]; [facility] Monocytes/100 WBC (Bld) 6 % Normal 0 - 13 % [facility]; [facility], [facility] Neutrophils (Bld) [#/Vol] 4410 {Cells}/uL Normal 1500 - 7800 {Cells}/uL [facility]; [facility], [facility] Neutrophils/100 WBC (Bld) 70 % Normal 38 - 80 % [facility]; [facility], [facility] Platelets (Bld) [#/Vol] 184 10*3/uL Normal 140 - 400 10*3/uL [facility]; [facility], [facility] Platelets LM Ql (Bld) NORMAL Normal [facility]; [facility] RBC (Bld) [#/Vol] 4.15 10*6/uL Normal 3.80 - 5.1 0 10*6/uL [facility]; [facility], [facility] RBC morphology finding Nom (Bld) NORMAL Normal [facility]; [facility], [facility] WBC (Bld) [#/Vol] 6.3 10*3/uL Normal 3.8 - 10.8 10*3/uL [facility].; [facility], [facility] Laboratory - Microbiology an d Antimicrobial susceptibilityon 08-19-2010 C. trachomatis DNA LUIS MIGUEL+probe Ql (Unsp spec) Not detected Normal [facility]; [employer]. HBV surface Ag IA Ql Non-Reactive Normal [facility] [employer]. N. gonorrhoeae DNA LUIS MIGUEL+probe Ql (Unsp spec) Not detected Normal [employer]. Reagin Ab RPR Ql (S) Non-Reactive Normal [facility].; [employer]. Rubella virus IgG Qn (S) 2.77 {INDEX} Normal [employer]. Laboratory - Specimen inform ationon 08-19-2010 Appearance (U) clear Normal [employer]. Color (U) yellow Normal [employer]. Laboratory - Urinalysison Glucose Test strip (U) [Mass/Vol] Negative Normal [employer]. Leukocyte esterase Test strip Ql (U) trace Normal [employer]. Nitrite Ql (U) Negative Normal [employer]. Protein Ql (U) Negative Normal [employer].; [employer]. No Panel Informationon 08-19 RH TYPE Positive Normal [employer]. SOURCE URINE-VOIDED Normal [employer]. UA - UROBILINOGEN 0.2 mg/dL Normal [employer]. Positive Normal [employer]. URINE-VOIDED Normal [employer]. 0.2 mg/dL Normal [employer]. Laboratory - Chemistry and C hemistry - challengeon 07-26-2010 Beta HCG ( test) Ql (U) Positive Abnormal [employer]. Vital Signs Date Time Vital Sign Value Performing Clinician Facility 01-03-2025 10:51-0400 Body height 162.56 cm Vielka Sifuentes RN [facility], [facility].; [facility]. 01-03-2025 10:51-0400 Body mass index (BMI) [Ratio] 30.38 kg/m2 Vielka Sifuentes RN [facility].; [facility]. 01-03-2025 10:51-0400 Body surface area Derived from formula 1.86 m2 Vielka Sifuentes RN [facility].; [facility]. 01-03-2025 10:51-0400 Body temperature 97.8 [degF] Vielka [facility]uentes RN [facility].; [facility]. 01-03-2025 10:51-0400 Body weight 80.29 kg Vielka Sifuentes RN [facility].; [facility], [facility]. 01-03-2025 10:51-0400 Diastolic blood pressure 61 mm[Hg] Vielka [facility]ifuentes RN [facility].; [facility], [facility]. 01-03-2025 10:51-0400 Heart rate 80 /min Vielka Sifuentes RN [facility].; [facility], [facility]. 01-03-2025 10:51-0400 Inhaled oxygen concentration 21 % Vielka Sifuentes RN [facility].; [facility], [facility]. 01-03-2025 10:51-0400 SaO2% (BldA) [Mass fraction] 97 % Vielka [facility]ifuentes RN [facility].; [facility], [facility]. 01-03-2025 10:51-0400 Systolic blood pressure 105 mm[Hg] Vielka [facility]ifuentes RN [facility].; [facility], [facility]. 12-28-2024 14:02-0400 Body height 162.56 cm Nora CRUZ [facility], [facility].; [facility], [facility]. 12-28-2024 14:02-0400 Body mass index (BMI) [Ratio] 30.9 kg/m2 Nora Paulley CCMA [facility].; [facility]. 12-28-2024 14:02-0400 Body surface area Derived from formula 1.87 m2 Nora Bernard [facility], [facility].; [facility], [facility]. 12-28-2024 14:02-0400 Body temperature 98.2 [degF] Nora Bernard [facility], [facility]. 12-28-2024 14:02-0400 Body weight 81.65 kg Nora Bernard [facility], [facility].; [facility], [facility]. 12-28-2024 14:02-0400 Diastolic blood pressure 72 mm[Hg] Nora Bernard [facility], [facility]. 12-28-2024 14:02-0400 Heart rate 99 /min Nora Bernard [facility], [facility]. 12-28-2024 14:02-0400 Inhaled oxygen concentration 21 % Nora Bernard [facility], [facility].; [facility], [facility]. 12-28-2024 14:02-0400 SaO2% (BldA) [Mass fraction] 96 % Nora Marco Antonio [facility], [facility].; [facility], [facility]. 12-28-2024 14:02-0400 Systolic blood pressure 108 mm[Hg] Nora Bernard [facility]. 03-02-2024 08:02-0400 Body height 162.56 cm Gale Banda MA [facility].; [facility]. 03-02-2024 08:02-0400 Body mass index (BMI) [Ratio] 31.07 kg/m2 Gale Banda MA [facility].; [facility]. 03-02-2024 08:02-0400 Body surface area Derived from formula 1.87 m2 Gale Banda MA [facility], [facility].; [place] [employer] [facility]. 03-02-2024 08:02-0400 Body weight 82.1 kg Gale Banda MA [facility].; [place] [employer]. 03-02-2024 08:02-0400 Diastolic blood pressure 70 mm[Hg] Gale Veronika LAYNE [facility].; [place] [employer]. Comment on above: Patient Position: Sitting; Cuff Location : Left Arm; Cuff Size: Standard 03-02-2024 08:02-0400 Heart rate 81 /min Gale Banda MA [facility].; [place] [employer]. Comment on above: Pattern: Regular 03-02-2024 08:02-0400 Systolic blood pressure 109 mm[Hg] Gale Banda MA [facility].; [place] [employer]. Comment on above: Patient Position: Sitting; Cuff Location : Left Arm; Cuff Size: Standard 07-06-2023 13:06-0400 Body height 162.56 cm Preethi Burt MA [facility].; [place] [employer]. 07-06-2023 13:06-0400 Body mass index (BMI) [Ratio] 27.89 kg/m2 Preethi Burt MA [facility].; [place] [employer] [facility]. 07-06-2023 13:06-0400 Body surface area Derived from formula 1.79 m2 Preethi Burt MA [facility].; [place] [employer] [facility], [facility]. 07-06-2023 13:06-0400 Body weight 73.71 kg Preethi Burt MA [facility].; [place] [employer]. 07-06-2023 13:06-0400 Diastolic blood pressure 82 mm[Hg] Preethi Burt MA [facility].; [employer]. Comment on above: Patient Position: Sitting; Cuff Location : Left Arm; Cuff Size: Standard 07-06-2023 13:06-0400 Heart rate 83 /min Preethi Burt MA [facility].; [employer]. Comment on above: Pattern: Regular 07-06-2023 13:06-0400 Inhaled oxygen concentration 21 % Preethi Burt MA [facility].; [employer]. Comment on above: Room air 07-06-2023 13:06-0400 SaO2% (BldA) [Mass fraction] 95 % Preethi Burt MA [facility].; [place] [employer] [facility]. 07-06-2023 13:06-0400 Systolic blood pressure 127 mm[Hg] Preethi Burt MA [facility].; [employer]. Comment on above: Patient Position: Sitting; Cuff Location : Left Arm; Cuff Size: Standard 05-25-2023 08:02-0400 Body height 162.56 cm Vielka Sifuentes RN [place] [employer] [facility].; [employer]. 05-25-2023 08:02-0400 Body mass index (BMI) [Ratio] 27.29 kg/m2 Vielka [facility]ifuentes RN [facility].; [employer]. 05-25-2023 08:02-0400 Body surface area Derived from formula 1.77 m2 Vielka Sifuentes RN [place] [employer] [facility].; [employer]. 05-25-2023 08:02-0400 Body weight 72.12 kg Vielka Sifuentes RN [place] [employer] [facility].; [employer]. 05-25-2023 08:02-0400 Diastolic blood pressure 69 mm[Hg] Vielka Sifuentes RN [place] [employer] [facility].; [employer]. Comment on above: Patient Position: Sitting; Cuff Location : Left Arm; Cuff Size: Standard 05-25-2023 08:02-0400 Heart rate 79 /min Vielka Sifuentes RN [place] [employer] [facility].; [employer]. Comment on above: Pattern: Regular 05-25-2023 08:02-0400 Systolic blood pressure 107 mm[Hg] Vielka Sifuentes RN [employer].; [employer]. Comment on above: Patient Position: Sitting; Cuff Location : Left Arm; Cuff Size: Standard 04-28-2023 15:52-0400 Body height 162.56 cm Gale Banda MA [employer].; [employer]. 04-28-2023 15:52-0400 Body mass index (BMI) [Ratio] 26.09 kg/m2 Galefarhana Mendozaricardo LAYNE [facility].; [facility], [facility]. 04-28-2023 15:52-0400 Body surface area Derived from formula 1.74 m2 Gale Veronika LAYNE [facility].; [facility], [facility]. 04-28-2023 15:52-0400 Body weight 68.95 kg Galefarhana Mendozaricardo LAYNE [facility].; [facility]. 04-28-2023 15:52-0400 Diastolic blood pressure 75 mm[Hg] Gale Veronika LAYNE [facility].; [facility]. Comment on above: Patient Position: Sitting; Cuff Location : Left Arm; Cuff Size: Standard 04-28-2023 15:52-0400 Heart rate 98 /min Gale Veronika LAYNE [facility].; [place] [employer] [facility]. Comment on above: Pattern: Regular 04-28-2023 15:52-0400 Systolic blood pressure 110 mm[Hg] Gale Veronika LAYNE [facility].; [facility]. Comment on above: Patient Position: Sitting; Cuff Location : Left Arm; Cuff Size: Standard 03-27-2023 09:14-0400 Body height 162.56 cm Gale Veronika LAYNE [facility].; [facility], [facility]. 03-27-2023 09:14-0400 Body mass index (BMI) [Ratio] 27.12 kg/m2 Gale Veronika LAYNE [facility].; [facility], [facility]. 03-27-2023 09:14-0400 Body surface area Derived from formula 1.77 m2 Gale Veronika LAYNE [facility].; [facility]. 03-27-2023 09:14-0400 Body weight 71.67 kg Gale Veronika LAYNE [facility], [facility].; [facility], [facility]. 03-27-2023 09:14-0400 Diastolic blood pressure 73 mm[Hg] Gale Veronika LAYNE [facility].; [place] [employer] [facility]. Comment on above: Patient Position: Sitting; Cuff Location : Left Arm; Cuff Size: Standard 03-27-2023 09:14-0400 Heart rate 74 /min Gale Banda MA [facility], [facility].; [place] [employer] [facility], [place]. Comment on above: Pattern: Regular 03-27-2023 09:14-0400 Systolic blood pressure 111 mm[Hg] Gale Banda MA [facility], [facility].; [place] [employer] [facility], [place]. Comment on above: Patient Position: Sitting; Cuff Location : Left Arm; Cuff Size: Standard 02-24-2023 09:34-0400 Body height 162.56 cm Prachi Childers LOREN [facility], [facility].; [place] [employer] [facility], [place]. 02-24-2023 09:34-0400 Body mass index (BMI) [Ratio] 27.12 kg/m2 Prachi Childers [facility], [facility].; [place] [employer] [facility], [place]. 02-24-2023 09:34-0400 Body surface area Derived from formula 1.77 m2 [facility] Liseth ENVIRONMENTAL COMPLIANCE TECHNICIAN [facility], [facility].; [place] [employer] [facility], [place]. 02-24-2023 09:34-0400 Body weight 71.67 kg Prachi Childers ENVIRONMENTAL COMPLIANCE TECHNICIAN [facility], [facility].; [employer] [facility], [place]. 02-24-2023 09:34-0400 Diastolic blood pressure 80 mm[Hg] Prachi Childers ENVIRONMENTAL COMPLIANCE TECHNICIAN [facility], [facility].; [employer] [facility], [place]. Comment on above: Patient Position: Sitting; Cuff Location : Left Arm; Cuff Size: Large 02-24-2023 09:34-0400 Heart rate 92 /min Prachi Childers ENVIRONMENTAL COMPLIANCE TECHNICIAN [facility], [facility].; [employer]. Comment on above: Pattern: Regular 02-24-2023 09:34-0400 Systolic blood pressure 114 mm[Hg] Prachi Childers ENVIRONMENTAL COMPLIANCE TECHNICIAN [facility], [facility].; [employer], [place]. Comment on above: Patient Position: Sitting; Cuff Location : Left Arm; Cuff Size: Large 07-01-2021 11:25-0400 Body height 162.56 cm Vielka Sifuentes RN [facility], [place].; [place] [employer]. 07-01-2021 11:25-0400 Body mass index (BMI) [Ratio] 24.72 kg/m2 Vielka Sifuentes RN [facility], [facility].; [employer] [facility], [facility]. 07-01-2021 11:25040 Body surface area Derived from formula 1.7 m2 Vielka Sifuentes RN [facility], [facility].; [employer] 07-01-2021 11:040 Body temperature 98.5 [degF] Vielka Sifuentes RN [place] [employer] [facility].; [employer]. Comment on above: Method: Tympanic 07-01-2021 11:040 Body weight 65.32 kg Vielka Sifuentes RN [place] [employer] [facility] Hospital[facility].; [employer] [facility]. 07-01-2021 11:040 Diastolic blood pressure 65 mm[Hg] Vielka Sifuentes RN [place] [employer] [facility] Hospital[facility].; [employer], [place]. Comment on above: Patient Position: Sitting; Cuff Location : Left Arm; Cuff Size: Standard 07-01-2021 11:25-040 Systolic blood pressure 95 mm[Hg] Vielka Sifuentes RN [place] [employer] [facility] Hospital[facility].; [employer]. Comment on above: Patient Position: Sitting; Cuff Location : Left Arm; Cuff Size: Standard 05-23-2021 10:040 Body height 162.56 cm Ev Rush LPN [place] [employer] [facility], Inc.; [employer] 05-23-2021 10:040 Body mass index (BMI) [Ratio] 24.72 kg/m2 Ev Rush LPN [place] [employer] [facility].; [employer], [place]. 05-23-2021 10:040 Body surface area Derived from formula 1.7 m2 Ev Rush LPN [employer] [facility], [facility].; [employer], [place]. 05-23-2021 10:040 Body weight 65.32 kg Ev Rush LPN [employer] [facility], Inc.; [employer], [place]. 05-23-2021 10:19040 Diastolic blood pressure 77 mm[Hg] Ev Rush LPN [place] [employer] [facility].; [employer]. Comment on above: Patient Position: Sitting; Cuff Location : Left Arm; Cuff Size: Standard 05-23-2021 10:19-0400 Heart rate 70 /min Ev Rush LPN [facility], Inc.; [employer]. Comment on above: Pattern: Regular 05-23-2021 10:19-0400 Systolic blood pressure 122 mm[Hg] Ev Rush LPN [place] [employer] [facility], [place].; [employer]. Comment on above: Patient Position: Sitting; Cuff Location : Left Arm; Cuff Size: Standard 02-25-2019 09:48-0400 Body height 162.56 cm Suma Nevaeh Sisi [employer] [place] [employer] [facility], [place].; [employer]. 02-25-2019 09:48-0400 Body mass index (BMI) [Ratio] 26.78 kg/m2 Sumamario Laird ENVIRONMENTAL COMPLIANCE TECHNICIAN [place] [employer] [facility], [place].; [employer], [place]. 02-25-2019 09:48-0400 Body surface area Derived from formula 1.76 m2 Sumamario Laird LPN [place] [employer], [place].; [employer], [place]. 02-25-2019 09:48-0400 Body temperature 98.7 [degF] Sumamario Laird LPN [place] [employer] [facility], [place].; [employer], [place]. Comment on above: Method: Tympanic 02-25-2019 09:48-0400 Body weight 70.76 kg Sumamario Laird LPN [place] [employer] [facility], Inc.; [employer]. 02-25-2019 09:48-0400 Diastolic blood pressure 72 mm[Hg] Suma Nevaeh Laird LPN [employer].; [employer]. Comment on above: Patient Position: Sitting; Cuff Location : Right Arm; Cuff Size: Standard 02-25-2019 09:48-0400 Heart rate 109 /min Sumamario Laird LPN [place] [employer] [facility], [facility].; [employer]. Comment on above: Pattern: Regular 02-25-2019 09:48-0400 Inhaled oxygen concentration 21 % Suma Laird [place] [employer].; [employer]. Comment on above: Room air 02-25-2019 09:48-0400 SaO2% (BldA) [Mass fraction] 98 % Suma Laird LPN [place] [employer].; [employer]. 02-25-2019 09:48-0400 Systolic blood pressure 104 mm[Hg] Suma Laird LPN [employer].; [employer]. Comment on above: Patient Position: Sitting; Cuff Location : Right Arm; Cuff Size: Standard 12-28-2018 07:50-0400 Body height 162.56 cm Vielka Sifuentes RN [employer].; [employer]. 12-28-2018 07:50-0400 Body mass index (BMI) [Ratio] 26.43 kg/m2 Vielka Sifuentes RN [employer].; [employer]. 12-28-2018 07:50-0400 Body surface area Derived from formula 1.75 m2 Vielka Sifuentes RN [employer].; [employer]. 12-28-2018 07:50-0400 Body temperature 98.3 [degF] Vielka Sifuentes RN [employer].; [employer]. Comment on above: Method: Tympanic 12-28-2018 07:50-0400 Body weight 69.85 kg Vielka Sifuentes RN [employer].; [employer]. 12-28-2018 07:50-0400 Diastolic blood pressure 75 mm[Hg] Vielka Sifuentes RN [employer].; [employer]. Comment on above: Patient Position: Sitting; Cuff Location : Left Arm; Cuff Size: Standard 12-28-2018 07:50-0400 Heart rate 80 /min Vielka Sifuentes RN [employer].; [employer]. Comment on above: Pattern: Regular 12-28-2018 07:50-0400 Inhaled oxygen concentration 21 % Vielka Sifuentes RN [employer].; [employer]. Comment on above: Room air 12-28-2018 07:50-0400 SaO2% (BldA) [Mass fraction] 97 % Vielka Sifuentes RN [employer].; [employer]. 12-28-2018 07:50-0400 Systolic blood pressure 108 mm[Hg] Vielka Sifuentes RN [employer].; [employer]. Comment on above: Patient Position: Sitting; Cuff Location : Left Arm; Cuff Size: Standard 10-19-2018 09:17-0500 Body height 162.56 cm Vielka Sifuentes RN [employer].; [employer]. 10-19-2018 09:17-0500 Body mass index (BMI) [Ratio] 27.29 kg/m2 Vielka Sifuentes RN [employer].; [employer]. 10-19-2018 09:17-0500 Body surface area Derived from formula 1.77 m2 Vielka Sifuentes RN [employer].; [employer]. 10-19-2018 09:17-0500 Body weight 72.12 kg Vielka Sifuentes RN [employer].; [employer]. 10-19-2018 09:17-0500 Diastolic blood pressure 76 mm[Hg] Vielka Sifuentes RN [employer].; [employer]. Comment on above: Patient Position: Sitting; Cuff Location : Left Arm; Cuff Size: Standard 10-19-2018 09:17-0500 Heart rate 79 /min Vielka Sifuentes RN [employer].; [employer]. Comment on above: Pattern: Regular 10-19-2018 09:17-0500 Systolic blood pressure 110 mm[Hg] Vielka Sifuentes RN [employer].; [employer]. Comment on above: Patient Position: Sitting; Cuff Location : Left Arm; Cuff Size: Standard 07-01-2018 10:42-0400 Body height 162.56 cm Olga Payton LPN [employer].; [employer]. 07-01-2018 10:42-0400 Body mass index (BMI) [Ratio] 27.98 kg/m2 Olga Darion Naqvibaugh ENVIRONMENTAL COMPLIANCE TECHNICIAN [place] [employer] [facility], Inc.; [employer] 07-01-2018 10:42-0400 Body surface area Derived from formula 1.79 m2 Olga Darion Mutjeaniebaugh ENVIRONMENTAL COMPLIANCE TECHNICIAN [place] [employer], [employer] 07-01-2018 10:42-0400 Body weight 73.94 kg Olga Naqvibaugh ENVIRONMENTAL COMPLIANCE TECHNICIAN [place] [employer], [employer], [place]. 07-01-2018 10:42-0400 Diastolic blood pressure 74 mm[Hg] Olga Darion Naqvibaugh ENVIRONMENTAL COMPLIANCE TECHNICIAN [place] [employer], [employer], [place]. Comment on above: Patient Position: Sitting; Cuff Location : Left Arm; Cuff Size: Standard 07-01-2018 10:42-0400 Heart rate 94 /min Olga Naqvibaugh [facility] [employer] [facility], Inc.; [employer], [place]. Comment on above: Pattern: Regular 07-01-2018 10:42-0400 Systolic blood pressure 120 mm[Hg] Olga Naqvibaugh [facility] [employer], [place]. Comment on above: Patient Position: Sitting; Cuff Location : Left Arm; Cuff Size: Standard 05-17-2018 14:290400 Body height 162.56 cm Suma Laird ENVIRONMENTAL COMPLIANCE TECHNICIAN [place] [employer] [facility], Inc.; [employer], [place]. 05-17-2018 14:29-0400 Body mass index (BMI) [Ratio] 27.29 kg/m2 Suma Laird [facility] [employer] [facility], [facility].; [employer], [place]. 05-17-2018 14:290400 Body surface area Derived from formula 1.77 m2 Suma Laird ENVIRONMENTAL COMPLIANCE TECHNICIAN [place] [employer] [facility], [place].; [employer], [place]. 05-17-2018 14:29-0400 Body temperature 98.7 [degF] Suma Laird [facility] [employer], [place].; [employer]. Comment on above: Method: Tympanic 05-17-2018 14:29-0400 Body weight 72.12 kg Suma Coronadoyvon [employer] [place] [employer]. 05-17-2018 14:29-0400 Diastolic blood pressure 77 mm[Hg] Suma Tellezach ENVIRONMENTAL COMPLIANCE TECHNICIAN [place] [employer]. Comment on above: Patient Position: Sitting; Cuff Location : Left Arm; Cuff Size: Standard 05-17-2018 14:29-0400 Heart rate 87 /min Suma Coronadolabach [facility] [employer] [facility], Inc.; [employer]. Comment on above: Pattern: Regular 05-17-2018 14:29-0400 Inhaled oxygen concentration 21 % Suma Herring Sisi [facility], [place].; [employer]. Comment on above: Room air 05-17-2018 14:29-0400 SaO2% (BldA) [Mass fraction] 97 % Suma Herring Sisi [facility] [employer]. 05-17-2018 14:29-0400 Systolic blood pressure 115 mm[Hg] Suma Coronadolabach ENVIRONMENTAL COMPLIANCE TECHNICIAN [employer]. Comment on above: Patient Position: Sitting; Cuff Location : Left Arm; Cuff Size: Standard 04-19-2018 09:54-0400 Body height 162.56 cm Suma Coronadolabach ENVIRONMENTAL COMPLIANCE TECHNICIAN [place] [employer]. 04-19-2018 09:54-0400 Body mass index (BMI) [Ratio] 27.81 kg/m2 Suma Coronadolabach [facility] [employer]. 04-19-2018 09:54-0400 Body surface area Derived from formula 1.79 m2 Suma Coronadolabach ENVIRONMENTAL COMPLIANCE TECHNICIAN [employer]. 04-19-2018 09:54-0400 Body weight 73.48 kg Suma Coronadolabach ENVIRONMENTAL COMPLIANCE TECHNICIAN [employer]. 04-19-2018 09:54-0400 Diastolic blood pressure 65 mm[Hg] Suma Herring Sisi ENVIRONMENTAL COMPLIANCE TECHNICIAN [employer].; [employer]. Comment on above: Patient Position: Sitting; Cuff Location : Left Arm; Cuff Size: Standard 04-19-2018 09:54-0400 Heart rate 67 /min Suma Laird LPN [employer].; [employer]. Comment on above: Pattern: Regular 04-19-2018 09:54-0400 Systolic blood pressure 100 mm[Hg] Suma Laird LPN [employer] Comment on above: Patient Position: Sitting; Cuff Location : Left Arm; Cuff Size: Standard 03-16-2018 11:04-0400 Body height 162.56 cm Vielka Sifuentes RN [employer] 03-16-2018 11:04-0400 Body mass index (BMI) [Ratio] 27.64 kg/m2 Vielka Sifuentes RN [employer] 03-16-2018 11:04-0400 Body surface area Derived from formula 1.78 m2 Vielka Sifuentes RN [employer] 03-16-2018 11:04-0400 Body temperature 98.6 [degF] Vielka Sifuentes RN [employer] Comment on above: Method: Tympanic 03-16-2018 11:04-0400 Body weight 73.03 kg Vielka Sifuentes RN [employer] 03-16-2018 11:04-0400 Diastolic blood pressure 75 mm[Hg] Vielka Sifuentes RN [employer] Comment on above: Patient Position: Sitting; Cuff Location : Left Arm; Cuff Size: Standard 03-16-2018 11:04-0400 Heart rate 76 /min Vielka Sifuentes RN [employer]. Comment on above: Pattern: Regular 03-16-2018 11:04-0400 Systolic blood pressure 112 mm[Hg] Vielka Sifuentes RN [employer] [facility] Comment on above: Patient Position: Sitting; Cuff Location : Left Arm; Cuff Size: Standard 10-16-2017 10:37-0500 Body height 162.56 cm Hira Robles ENVIRONMENTAL COMPLIANCE TECHNICIAN [facility], [facility].; [employer] 10-16-2017 10:37-0500 Body mass index (BMI) [Ratio] 28.32 kg/m2 Hiralino Robles [facility], Inc.; [employer] 10-16-2017 10:37-0500 Body surface area Derived from formula 1.8 m2 Hiralino Robles [facility], [facility].; [employer], [place]. 10-16-2017 10:37-0500 Body weight 74.84 kg Hira Robles [facility] [employer] [facility], [facility].; [employer] [place] 10-16-2017 10:37-0500 Diastolic blood pressure 76 mm[Hg] Hiralino Robles [facility] [employer] [place]. Comment on above: Patient Position: Sitting; Cuff Location : Left Arm; Cuff Size: Standard 10-16-2017 10:37-0500 Heart rate 80 /min Hira Robles [facility] [employer] [facility], [facility].; [employer] Comment on above: Pattern: Regular 10-16-2017 10:37-0500 Systolic blood pressure 121 mm[Hg] Hira Robles [facility] [employer] [facility], [facility].; [employer]. Comment on above: Patient Position: Sitting; Cuff Location : Left Arm; Cuff Size: Standard 09-21-2017 09:16-0500 Body height 162.56 cm MelanieAraceli Childers ENVIRONMENTAL COMPLIANCE TECHNICIAN [place] [employer] [facility], [employer].; [employer] 09-21-2017 09:16-0500 Body mass index (BMI) [Ratio] 27.29 kg/m2 MelanieAraceli Childers [facility] [employer] [facility], [employer].; [employer], [place] 09-21-2017 09:16-0500 Body surface area Derived from formula 1.77 m2 MelanieAraceli Childers ENVIRONMENTAL COMPLIANCE TECHNICIAN [place] [employer] [facility], [facility].; [employer] 09-21-2017 09:16-0500 Body temperature 98.3 [degF] MelanieAraceli Childers ENVIRONMENTAL COMPLIANCE TECHNICIAN [facility], [employer] Comment on above: Method: Tympanic 09-21-2017 09:16-0500 Body weight 72.12 kg Prachi Childers ENVIRONMENTAL COMPLIANCE TECHNICIAN [facility], [employer].; [employer] 09-21-2017 09:16-0500 Diastolic blood pressure 77 mm[Hg] Prachi Childers ENVIRONMENTAL COMPLIANCE TECHNICIAN [facility], [facility] [employer] Comment on above: Patient Position: Sitting; Cuff Location : Left Arm; Cuff Size: Large 09-21-2017 09:16-0500 Heart rate 87 /min Prachi Childers ENVIRONMENTAL COMPLIANCE TECHNICIAN [facility] [employer] [facility], [employer] Comment on above: Pattern: Regular 09-21-2017 09:16-0500 Systolic blood pressure 106 mm[Hg] Prachi Childers ENVIRONMENTAL COMPLIANCE TECHNICIAN [facility] [employer] [facility], [facility] Comment on above: Patient Position: Sitting; Cuff Location : Left Arm; Cuff Size: Large 07-30-2017 09:07-0400 Body height 162.56 cm Hira Robles LPN [place] [employer] [facility], [facility] 07-30-2017 09:07-0400 Body mass index (BMI) [Ratio] 27.98 kg/m2 Hira Robles LPN [place] [employer] [facility], [facility] 07-30-2017 09:07-0400 Body surface area Derived from formula 1.79 m2 Hira Robles LPN [place] [employer] [facility], [facility] [employer] 07-30-2017 09:07-0400 Body weight 73.94 kg Hira Robles LPN [place] [employer] [facility], [facility] [employer] 07-30-2017 09:07-0400 Diastolic blood pressure 75 mm[Hg] Hira Robles LPN [facility] [employer] [facility], [facility] [employer] Comment on above: Patient Position: Sitting; Cuff Location : Left Arm; Cuff Size: Standard 07-30-2017 09:07-0400 Heart rate 81 /min Hira Robles LPN [place] [employer] [facility], [facility] Comment on above: Pattern: Regular 07-30-2017 09:07-0400 Systolic blood pressure 106 mm[Hg] Hira Robles [facility], [facility].; [employer] [place]. Comment on above: Patient Position: Sitting; Cuff Location : Left Arm; Cuff Size: Standard 07-08-2017 08:12-0400 Body height 162.56 cm Suma Tellezach [facility], [facility].; [employer] 07-08-2017 08:12-0400 Body mass index (BMI) [Ratio] 28.15 kg/m2 Suma Tellezach [facility], Inc.; [employer], [place]. 07-08-2017 08:120400 Body surface area Derived from formula 1.8 m2 Suma Coronadolabach [facility] [employer] [facility], [facility].; [employer], [place]. 07-08-2017 08:120400 Body weight 74.39 kg Suma Coronadolabach [facility] [employer] [facility], [facility].; [employer], [place]. 07-08-2017 08:120400 Diastolic blood pressure 67 mm[Hg] Suma Tellezach [facility] [employer] [facility], [facility].; [employer]. Comment on above: Patient Position: Sitting; Cuff Location : Left Arm; Cuff Size: Standard 07-08-2017 08:12-0400 Heart rate 86 /min Suma Tellezach [facility], [facility] [employer] Comment on above: Pattern: Regular 07-08-2017 08:12-0400 Systolic blood pressure 112 mm[Hg] Suma Tellezach [facility], [facility].; [employer] Comment on above: Patient Position: Sitting; Cuff Location : Left Arm; Cuff Size: Standard 06-09-2017 09:37-0400 Body height 162.56 cm Olga Payton [facility] [employer] [facility], [facility].; [employer] 06-09-2017 09:37-0400 Body mass index (BMI) [Ratio] 28.15 kg/m2 Olga Naqvibaugh ENVIRONMENTAL COMPLIANCE TECHNICIAN [place] [employer] [facility], Inc.; [employer] 06-09-2017 09:37-0400 Body surface area Derived from formula 1.8 m2 Olga K Mutersbaugh ENVIRONMENTAL COMPLIANCE TECHNICIAN [facility], Inc.; [employer], [place]. 06-09-2017 09:37-0400 Body weight 74.39 kg Olga K Mutersbaugh ENVIRONMENTAL COMPLIANCE TECHNICIAN [facility], Inc.; [employer] 06-09-2017 09:37-0400 Diastolic blood pressure 88 mm[Hg] Olga K Mutersbaugh ENVIRONMENTAL COMPLIANCE TECHNICIAN [place] [employer] [facility], [facility].; [employer]. Comment on above: Patient Position: Sitting; Cuff Location : Left Arm; Cuff Size: Standard 06-09-2017 09:37-0400 Heart rate 98 /min Olga K Mutersbaugh ENVIRONMENTAL COMPLIANCE TECHNICIAN [facility], [facility].; [employer], [place]. Comment on above: Pattern: Regular 06-09-2017 09:37-0400 Systolic blood pressure 127 mm[Hg] Olga K Mutersbaugh ENVIRONMENTAL COMPLIANCE TECHNICIAN [facility], Inc.; [employer]. Comment on above: Patient Position: Sitting; Cuff Location : Left Arm; Cuff Size: Standard 05-12-2017 09:33-0400 Body height 162.56 cm Olga K Mutersbaugh ENVIRONMENTAL COMPLIANCE TECHNICIAN [facility], Inc.; [employer], [place]. 05-12-2017 09:33-0400 Body mass index (BMI) [Ratio] 27.12 kg/m2 Olga K Mutersbaugh ENVIRONMENTAL COMPLIANCE TECHNICIAN [place] [employer] [facility], [facility].; [employer]. 05-12-2017 09:33-0400 Body surface area Derived from formula 1.77 m2 Olga K Mutersbaugh ENVIRONMENTAL COMPLIANCE TECHNICIAN [place] [employer] [facility], [facility].; [employer]. 05-12-2017 09:33-0400 Body weight 71.67 kg Olga K Mutersbaugh ENVIRONMENTAL COMPLIANCE TECHNICIAN [place] [employer], [place].; [employer]. 05-12-2017 09:33-0400 Diastolic blood pressure 83 mm[Hg] Olga K Mutersbaugh ENVIRONMENTAL COMPLIANCE TECHNICIAN [place] [employer]. Comment on above: Patient Position: Sitting; Cuff Location : Left Arm; Cuff Size: Standard 05-12-2017 09:33-0400 Heart rate 96 /min Olga Darion Mutersbaugh ENVIRONMENTAL COMPLIANCE TECHNICIAN [facility], [facility].; [employer], [place]. Comment on above: Pattern: Regular 05-12-2017 09:33-0400 Systolic blood pressure 113 mm[Hg] Olga K Mutersbaugh ENVIRONMENTAL COMPLIANCE TECHNICIAN [facility], [facility].; [employer], [place]. Comment on above: Patient Position: Sitting; Cuff Location : Left Arm; Cuff Size: Standard 05-07-2017 07:45-0400 Body height 162.56 cm Olga K Mutersbaugh ENVIRONMENTAL COMPLIANCE TECHNICIAN [facility], Inc.; [place] [employer], [place]. 05-07-2017 07:45-0400 Body mass index (BMI) [Ratio] 27.29 kg/m2 Olga K Mutersbaugh [facility], [facility].; [employer], [place]. 05-07-2017 07:45-0400 Body surface area Derived from formula 1.77 m2 Olga K Mutersbaugh ENVIRONMENTAL COMPLIANCE TECHNICIAN [facility], [facility].; [place] [employer], [facility]. 05-07-2017 07:45-0400 Body weight 72.12 kg Olga Darion Mutersbaugh ENVIRONMENTAL COMPLIANCE TECHNICIAN [place] [employer] [facility], [facility].; [employer], [place]. 05-07-2017 07:45-0400 Diastolic blood pressure 72 mm[Hg] Olga K Mutersbaugh ENVIRONMENTAL COMPLIANCE TECHNICIAN [facility], [facility].; [employer], [place]. Comment on above: Patient Position: Sitting; Cuff Location : Left Arm; Cuff Size: Standard 05-07-2017 07:45-0400 Heart rate 78 /min Olga K Mutersbaugh ENVIRONMENTAL COMPLIANCE TECHNICIAN [place] [employer] [facility], [facility].; [employer], [place]. Comment on above: Pattern: Regular 05-07-2017 07:45-0400 Systolic blood pressure 108 mm[Hg] Olga K Mutersbaugh ENVIRONMENTAL COMPLIANCE TECHNICIAN [place] [employer] [facility], [place].; [employer]. Comment on above: Patient Position: Sitting; Cuff Location : Left Arm; Cuff Size: Standard 04-09-2017 13:43-0400 Body temperature 98.2 [degF] Jordane Zuleyka Shannon ENVIRONMENTAL COMPLIANCE TECHNICIAN [place] [employer] [facility], [place].; [facility] Comment on above: Method: Tympanic 04-09-2017 13:43-0400 Body weight 71.67 kg Neilee L Vess ENVIRONMENTAL COMPLIANCE TECHNICIAN [facility], Inc.; [employer] 04-09-2017 13:43-0400 Diastolic blood pressure 84 mm[Hg] Neilee L Vess ENVIRONMENTAL COMPLIANCE TECHNICIAN [facility], [facility].; [employer] Comment on above: Patient Position: Sitting; Cuff Location : Right Arm; Cuff Size: Standard 04-09-2017 13:43-0400 Heart rate 100 /min Neilee L Vess ENVIRONMENTAL COMPLIANCE TECHNICIAN [facility], [facility].; [employer] Comment on above: Pattern: Regular 04-09-2017 13:43-0400 Systolic blood pressure 128 mm[Hg] Neilee L Vess ENVIRONMENTAL COMPLIANCE TECHNICIAN [place] [employer] [facility], [facility].; [employer] Comment on above: Patient Position: Sitting; Cuff Location : Right Arm; Cuff Size: Standard 02-10-2017 09:53-0400 Body height 162.56 cm Olga K Mutersbaugh ENVIRONMENTAL COMPLIANCE TECHNICIAN [facility], [facility].; [employer], [place]. 02-10-2017 09:53-0400 Body mass index (BMI) [Ratio] 26.95 kg/m2 Olga K Mutersbaugh ENVIRONMENTAL COMPLIANCE TECHNICIAN [place] [employer] [facility], [facility].; [employer], [place]. 02-10-2017 09:53-0400 Body surface area Derived from formula 1.76 m2 Olga K Mutersbaugh ENVIRONMENTAL COMPLIANCE TECHNICIAN [place] [employer] [facility], Inc.; [employer], [facility]. 02-10-2017 09:53-0400 Body weight 71.22 kg Olga K Mutersbaugh ENVIRONMENTAL COMPLIANCE TECHNICIAN [place] [employer] [facility], [facility].; [employer], [place]. 02-10-2017 09:53-0400 Diastolic blood pressure 75 mm[Hg] Olga K Mutersbaugh ENVIRONMENTAL COMPLIANCE TECHNICIAN [place] [employer], [place].; [employer]. Comment on above: Patient Position: Sitting; Cuff Location : Left Arm; Cuff Size: Standard 02-10-2017 09:53-0400 Heart rate 84 /min Olga K Mutersbaugh ENVIRONMENTAL COMPLIANCE TECHNICIAN [place] [employer] [facility], [facility]. Comment on above: Pattern: Regular 02-10-2017 09:53-0400 Systolic blood pressure 109 mm[Hg] Olga K Mutersbaugh ENVIRONMENTAL COMPLIANCE TECHNICIAN [employer]. Comment on above: Patient Position: Sitting; Cuff Location : Left Arm; Cuff Size: Standard 01-13-2017 10:39-0400 Body height 162.56 cm Olga K Mutersbaugh ENVIRONMENTAL COMPLIANCE TECHNICIAN [employer] 01-13-2017 10:39-0400 Body mass index (BMI) [Ratio] 26.95 kg/m2 Olga K Mutersbaugh ENVIRONMENTAL COMPLIANCE TECHNICIAN [employer]. 01-13-2017 10:39-0400 Body surface area Derived from formula 1.76 m2 Olga K Mutersbaugh ENVIRONMENTAL COMPLIANCE TECHNICIAN [employer], [place] 01-13-2017 10:39-0400 Body weight 71.22 kg Olga K Mutersbaugh ENVIRONMENTAL COMPLIANCE TECHNICIAN [employer], [place] [place] 01-13-2017 10:39-0400 Diastolic blood pressure 74 mm[Hg] Olga K Mutersbaugh ENVIRONMENTAL COMPLIANCE TECHNICIAN [employer], [place]. Comment on above: Patient Position: Sitting; Cuff Location : Left Arm; Cuff Size: Standard 01-13-2017 10:39-0400 Heart rate 75 /min Olga K Mutersbaugh ENVIRONMENTAL COMPLIANCE TECHNICIAN [employer]. Comment on above: Pattern: Regular 01-13-2017 10:39-0400 Systolic blood pressure 120 mm[Hg] Olga K Mutersbaugh ENVIRONMENTAL COMPLIANCE TECHNICIAN [employer], [place]. Comment on above: Patient Position: Sitting; Cuff Location : Left Arm; Cuff Size: Standard 12-30-2016 11:10-0400 Body height 162.56 cm Olga K Mutersbaugh ENVIRONMENTAL COMPLIANCE TECHNICIAN [employer] 12-30-2016 11:10-0400 Body mass index (BMI) [Ratio] 26.95 kg/m2 Olga K Mutersbaugh ENVIRONMENTAL COMPLIANCE TECHNICIAN [employer] 12-30-2016 11:10-0400 Body surface area Derived from formula 1.76 m2 Olga Payton ENVIRONMENTAL COMPLIANCE TECHNICIAN [facility] [employer] 12-30-2016 11:10-0400 Body weight 71.22 kg Olga Payton ENVIRONMENTAL COMPLIANCE TECHNICIAN [employer] 12-30-2016 11:10-0400 Diastolic blood pressure 78 mm[Hg] Olga Naqvibaugh ENVIRONMENTAL COMPLIANCE TECHNICIAN [employer] Comment on above: Patient Position: Sitting; Cuff Location : Left Arm; Cuff Size: Standard 12-30-2016 11:10-0400 Heart rate 83 /min Olga Valeugh ENVIRONMENTAL COMPLIANCE TECHNICIAN [place] [employer] Comment on above: Pattern: Regular 12-30-2016 11:10-0400 Systolic blood pressure 125 mm[Hg] Olga Naqvibaugh ENVIRONMENTAL COMPLIANCE TECHNICIAN [employer] Comment on above: Patient Position: Sitting; Cuff Location : Left Arm; Cuff Size: Standard 11-20-2016 11:160500 Body height 162.56 cm Sabrina Reynoso RN Work Phone: [employer] 11-20-2016 11:16-0500 Body mass index (BMI) [Ratio] 27.29 kg/m2 Sabrina Reynoso RN Work Phone: [employer]. 11-20-2016 11:16-0500 Body surface area Derived from formula 1.77 m2 Sabrina Reynoso RN Work Phone: [employer]. 11-20-2016 11:16-0500 Body temperature 98.5 [degF] Sabrina Reynoso RN Work Phone: [employer]. Comment on above: Method: Tympanic 11-20-2016 11:16-0500 Body weight 72.12 kg Sabrina Reynoso RN Work Phone: [employer]. 11-20-2016 11:16-0500 Diastolic blood pressure 78 mm[Hg] Sabrina Reynoso RN Work Phone: [place] [employer]. Comment on above: Patient Position: Sitting; Cuff Location : Right Arm; Cuff Size: Large 11-20-2016 11:16-0500 Heart rate 77 /min Sabrina Reynoso RN Work Phone: [employer]. Comment on above: Pattern: Regular 11-20-2016 11:16-0500 Systolic blood pressure 108 mm[Hg] Sabrina Reynoso RN Work Phone: [employer]. Comment on above: Patient Position: Sitting; Cuff Location : Right Arm; Cuff Size: Large 09-30-2016 14:120500 Body height 162.56 cm Olga K Mutersbaugh ENVIRONMENTAL COMPLIANCE TECHNICIAN [employer] 09-30-2016 14:120500 Body mass index (BMI) [Ratio] 26.09 kg/m2 Olga K Mutersbaugh ENVIRONMENTAL COMPLIANCE TECHNICIAN [employer], [place]. 09-30-2016 14:120500 Body surface area Derived from formula 1.74 m2 Olga K Mutersbaugh ENVIRONMENTAL COMPLIANCE TECHNICIAN [employer] 09-30-2016 14:120500 Body weight 68.95 kg Olga K Mutersbaugh ENVIRONMENTAL COMPLIANCE TECHNICIAN [employer], [place]. 09-30-2016 14:12-0500 Diastolic blood pressure 70 mm[Hg] Olga K Mutersbaugh ENVIRONMENTAL COMPLIANCE TECHNICIAN [employer], [place]. Comment on above: Patient Position: Sitting; Cuff Location : Left Arm; Cuff Size: Standard 09-30-2016 14:12-0500 Heart rate 82 /min Olga K Mutersbaugh ENVIRONMENTAL COMPLIANCE TECHNICIAN [employer] [employer]. Comment on above: Pattern: Regular 09-30-2016 14:12-0500 Systolic blood pressure 118 mm[Hg] Olga Payton LPN [place] [employer]. Comment on above: Patient Position: Sitting; Cuff Location : Left Arm; Cuff Size: Standard 08-06-2016 09:27-0400 Body height 162.56 cm Sabrina Reynoso RN Work Phone: [employer] 08-06-2016 09:27-0400 Body mass index (BMI) [Ratio] 25.4 kg/m2 Sabrina Reynoso RN Work Phone: [employer] 08-06-2016 09:27-0400 Body surface area Derived from formula 1.72 m2 Sabrina Reynoso RN Work Phone: [employer]. 08-06-2016 09:27-0400 Body temperature 98.6 [degF] Sabrina Reynoso RN Work Phone: [employer]. Comment on above: Method: Tympanic 08-06-2016 09:27-0400 Body weight 67.13 kg Sabrina Reynoso RN Work Phone: [employer]. 08-06-2016 09:27-0400 Diastolic blood pressure 71 mm[Hg] Sabrina Reynoso RN Work Phone: [employer]. Comment on above: Patient Position: Sitting; Cuff Location : Left Arm; Cuff Size: Standard 08-06-2016 09:27-0400 Heart rate 87 /min Sabrina Reynoso RN Work Phone: [employer]. Comment on above: Pattern: Regular 08-06-2016 09:27-0400 Inhaled oxygen concentration 21 % Sabrina Reynoso RN Work Phone: [employer] [facility] Comment on above: Room air 08-06-2016 09:27-0400 SaO2% (BldA) [Mass fraction] 98 % Sabrina Reynoso RN Work Phone: [place] [employer], [place]. 08-06-2016 09:27-0400 Systolic blood pressure 118 mm[Hg] Sabrina Reynoso RN Work Phone: [place] [employer]. Comment on above: Patient Position: Sitting; Cuff Location : Left Arm; Cuff Size: Standard 07-03-2016 14:20-0400 Body height 162.56 cm Olga K Mutersbaugh ENVIRONMENTAL COMPLIANCE TECHNICIAN [employer] [place] 07-03-2016 14:20-0400 Body mass index (BMI) [Ratio] 25.58 kg/m2 Olga K Mutersbaugh ENVIRONMENTAL COMPLIANCE TECHNICIAN [employer] 07-03-2016 14:20-0400 Body surface area Derived from formula 1.73 m2 Olga K Mutersbaugh ENVIRONMENTAL COMPLIANCE TECHNICIAN [employer], [employer] [place] 07-03-2016 14:20-0400 Body weight 67.59 kg Olga K Mutersbaugh ENVIRONMENTAL COMPLIANCE TECHNICIAN [employer], [employer], [place]. 07-03-2016 14:20-0400 Diastolic blood pressure 80 mm[Hg] Olga K Mutersbaugh ENVIRONMENTAL COMPLIANCE TECHNICIAN [employer] [place]. Comment on above: Patient Position: Sitting; Cuff Location : Left Arm; Cuff Size: Standard 07-03-2016 14:20-0400 Heart rate 86 /min Olga K Mutersbaugh ENVIRONMENTAL COMPLIANCE TECHNICIAN [employer], [place]. Comment on above: Pattern: Regular 07-03-2016 14:20-0400 Systolic blood pressure 139 mm[Hg] Olga K Mutersbaugh ENVIRONMENTAL COMPLIANCE TECHNICIAN [employer], [place]. Comment on above: Patient Position: Sitting; Cuff Location : Left Arm; Cuff Size: Standard 03-26-2016 11:43-0400 Body height 162.56 cm Jigna Cornell ENVIRONMENTAL COMPLIANCE TECHNICIAN Work Phone: [employer] 03-26-2016 11:43-0400 Body mass index (BMI) [Ratio] 24.72 kg/m2 Jigna Sarabia LPN Work Phone: [employer] 03-26-2016 11:43-0400 Body surface area Derived from formula 1.7 m2 Jigna Sarabia LPN Work Phone: [employer] 03-26-2016 11:43-0400 Body weight 65.32 kg Jigna Sarabia LPN Work Phone: [employer] 03-26-2016 11:43-0400 Diastolic blood pressure 77 mm[Hg] Jigna Sarabia LPN Work Phone: [employer]. Comment on above: Patient Position: Sitting; Cuff Location : Left Arm; Cuff Size: Standard 03-26-2016 11:43-0400 Heart rate 69 /min Jigna Sarabia LPN Work Phone: [employer]. Comment on above: Pattern: Regular 03-26-2016 11:43-0400 Systolic blood pressure 113 mm[Hg] Jigna Sarabia LPN Work Phone: [employer]. Comment on above: Patient Position: Sitting; Cuff Location : Left Arm; Cuff Size: Standard 03-19-2016 11:110400 Body height 162.56 cm Prachi Childers [facility] [employer] 03-19-2016 11:11-0400 Body mass index (BMI) [Ratio] 24.72 kg/m2 Prachi Childers [facility] [employer] 03-19-2016 11:11-0400 Body surface area Derived from formula 1.7 m2 Prachi Childers LPN [employer] [facility], [employer] 03-19-2016 11:110400 Body temperature 97.9 [degF] Prachi Childers ENVIRONMENTAL COMPLIANCE TECHNICIAN [employer] [facility] [facility] [employer] Comment on above: Method: Tympanic 03-19-2016 11:110400 Body weight 65.32 kg Prachi Childers ENVIRONMENTAL COMPLIANCE TECHNICIAN [employer] [facility] [employer] 03-19-2016 11:110400 Diastolic blood pressure 75 mm[Hg] [facility]ers [facility] [employer] [employer], [place]. Comment on above: Patient Position: Sitting; Cuff Location : Left Arm; Cuff Size: Large 03-19-2016 11:110400 Heart rate 82 /min Prachi Childers ENVIRONMENTAL COMPLIANCE TECHNICIAN [employer] [facility] [employer] Comment on above: Pattern: Regular 03-19-2016 11:110400 Systolic blood pressure 119 mm[Hg] Prachi Childers ENVIRONMENTAL COMPLIANCE TECHNICIAN [employer] [facility] [employer] Comment on above: Patient Position: Sitting; Cuff Location : Left Arm; Cuff Size: Large 12-10-2015 14:39-0500 Body height 162.56 cm Jigna Cornell [facility] Work Phone: [employer], [place]. 12-10-2015 14:39-0500 Body mass index (BMI) [Ratio] 25.06 kg/m2 Jigna Cornell [facility] Work Phone: [employer], [place]. 12-10-2015 14:39-0500 Body surface area Derived from formula 1.71 m2 [employer] [facility] Work Phone: [employer], [place]. 12-10-2015 14:39-0500 Body weight 66.23 kg Jigna Cornell [facility] Work Phone: [employer] 12-10-2015 14:39-0500 Diastolic blood pressure 82 mm[Hg] Jigna Cornell ENVIRONMENTAL COMPLIANCE TECHNICIAN Work Phone: [employer]. Comment on above: Patient Position: Sitting; Cuff Location : Left Arm; Cuff Size: Standard 12-10-2015 14:39-0500 Heart rate 74 /min Jigna Cornell ENVIRONMENTAL COMPLIANCE TECHNICIAN Work Phone: [employer]. Comment on above: Pattern: Regular 12-10-2015 14:39-0500 Systolic blood pressure 129 mm[Hg] Jigna Cornell ENVIRONMENTAL COMPLIANCE TECHNICIAN Work Phone: [employer]. Comment on above: Patient Position: Sitting; Cuff Location : Left Arm; Cuff Size: Standard 09-14-2015 14:05-0500 Body height 162.56 cm Jigna Degrooty ENVIRONMENTAL COMPLIANCE TECHNICIAN Work Phone: [employer] 09-14-2015 14:05-0500 Body mass index (BMI) [Ratio] 24.72 kg/m2 [employer] ENVIRONMENTAL COMPLIANCE TECHNICIAN Work Phone: [employer] 09-14-2015 14:05-0500 Body surface area Derived from formula 1.7 m2 Jigna Cornell ENVIRONMENTAL COMPLIANCE TECHNICIAN Work Phone: [employer]. 09-14-2015 14:05-0500 Body weight 65.32 kg Jigna Degrooty ENVIRONMENTAL COMPLIANCE TECHNICIAN Work Phone: [employer]. 09-14-2015 14:05-0500 Diastolic blood pressure 80 mm[Hg] Jigna Cornell ENVIRONMENTAL COMPLIANCE TECHNICIAN Work Phone: [employer]. Comment on above: Patient Position: Sitting; Cuff Location : Left Arm; Cuff Size: Standard 09-14-2015 14:05-0500 Heart rate 79 /min Jigna Cornell ENVIRONMENTAL COMPLIANCE TECHNICIAN Work Phone: [employer] [facility] Comment on above: Pattern: Regular 09-14-2015 14:05-0500 Systolic blood pressure 115 mm[Hg] Jigna Sarabia LPN Work Phone: [employer] Comment on above: Patient Position: Sitting; Cuff Location : Left Arm; Cuff Size: Standard 08-17-2015 10:37-0500 Body temperature 97.6 [degF] Hortensia Ching MD Work Phone: [employer] [facility] 08-17-2015 10:37-0500 Body weight 65.32 kg Hortensia Ching MD Work Phone: [employer] [facility] 08-17-2015 10:37-0500 Diastolic blood pressure 77 mm[Hg] Hortensia Ching MD Work Phone: [employer] [facility] Comment on above: Patient Position: Sitting; Cuff Location : Left Arm; Cuff Size: Standard 08-17-2015 10:37-0500 Heart rate 79 /min Hortensia Ching MD Work Phone: [employer] [facility] Comment on above: Pattern: Regular 08-17-2015 10:37-0500 Systolic blood pressure 112 mm[Hg] Hortensia Ching MD Work Phone: [employer] [facility] Comment on above: Patient Position: Sitting; Cuff Location : Left Arm; Cuff Size: Standard 05-17-2015 14:48-0400 Body height 162.56 cm Hortensia Ching MD Work Phone: [facility]; [facility] 05-17-2015 14:48-0400 Body mass index (BMI) [Ratio] 24.72 kg/m2 Hortensia Ching MD Work Phone: [facility]; [facility] 05-17-2015 14:48-0400 Body surface area Derived from formula 1.7 m2 Hortensia Ching MD Work Phone: [employer]. 05-17-2015 14:48-0400 Body temperature 98.7 [degF] Hortensia Ching MD Work Phone: [employer]. Comment on above: Method: Tympanic 05-17-2015 14:48-0400 Body weight 65.32 kg Hortensia Ching MD Work Phone: [employer] [facility] 05-17-2015 14:48-0400 Diastolic blood pressure 79 mm[Hg] Hortensia Ching MD Work Phone: [employer]. Comment on above: Patient Position: Sitting; Cuff Location : Left Arm; Cuff Size: Standard 05-17-2015 14:48-0400 Heart rate 81 /min Hortensia Ching MD Work Phone: [facility]; [employer]. Comment on above: Pattern: Regular 05-17-2015 14:48-0400 Systolic blood pressure 127 mm[Hg] Hortensia Ching MD Work Phone: [employer] [facility] Comment on above: Patient Position: Sitting; Cuff Location : Left Arm; Cuff Size: Standard 05-11-2015 15:21-0400 Body height 162.56 cm [facility] Work Phone: [employer] [facility] 05-11-2015 15:21-0400 Body mass index (BMI) [Ratio] 24.55 kg/m2 [facility] Work Phone: [employer] 05-11-2015 15:21-0400 Body surface area Derived from formula 1.7 m2 [facility] Work Phone: [employer] 05-11-2015 15:21-0400 Body weight 64.86 kg Jigna Cornell ENVIRONMENTAL COMPLIANCE TECHNICIAN Work Phone: [employer]. 05-11-2015 15:21-0400 Diastolic blood pressure 63 mm[Hg] Jigna Cornell ENVIRONMENTAL COMPLIANCE TECHNICIAN Work Phone: [employer]. Comment on above: Patient Position: Sitting; Cuff Location : Left Arm; Cuff Size: Standard 05-11-2015 15:21-0400 Heart rate 84 /min Jigna Cornell ENVIRONMENTAL COMPLIANCE TECHNICIAN Work Phone: [employer]. Comment on above: Pattern: Regular 05-11-2015 15:21-0400 Systolic blood pressure 122 mm[Hg] Jigna Cornell ENVIRONMENTAL COMPLIANCE TECHNICIAN Work Phone: [employer]. Comment on above: Patient Position: Sitting; Cuff Location : Left Arm; Cuff Size: Standard 04-09-2015 11:33-0400 Body height 162.56 cm Jigna Cornell ENVIRONMENTAL COMPLIANCE TECHNICIAN Work Phone: [employer] 04-09-2015 11:33-0400 Body mass index (BMI) [Ratio] 24.55 kg/m2 Jigna Cornell ENVIRONMENTAL COMPLIANCE TECHNICIAN Work Phone: [employer] 04-09-2015 11:33-0400 Body surface area Derived from formula 1.7 m2 Jigna Cornell ENVIRONMENTAL COMPLIANCE TECHNICIAN Work Phone: [employer] 04-09-2015 11:33-0400 Body weight 64.86 kg Jigna Cornell ENVIRONMENTAL COMPLIANCE TECHNICIAN Work Phone: [employer].; [employer]. 04-09-2015 11:33-0400 Diastolic blood pressure 74 mm[Hg] Jigna Cornell ENVIRONMENTAL COMPLIANCE TECHNICIAN Work Phone: [employer]. Comment on above: Patient Position: Sitting; Cuff Location : Left Arm; Cuff Size: Standard 04-09-2015 11:33-0400 Heart rate 85 /min Jigna Sarabia LPN Work Phone: [place] [employer]. Comment on above: Pattern: Regular 04-09-2015 11:33-0400 Systolic blood pressure 109 mm[Hg] Jigna Degrooty ENVIRONMENTAL COMPLIANCE TECHNICIAN Work Phone: [place] [employer]. Comment on above: Patient Position: Sitting; Cuff Location : Left Arm; Cuff Size: Standard 12-25-2014 13:02-0400 Body height 162.56 cm Jigna Sarabia LPN Work Phone: [employer] 12-25-2014 13:02-0400 Body mass index (BMI) [Ratio] 26.09 kg/m2 Jigna Sarabia LPN Work Phone: [place] [employer]. 12-25-2014 13:02-0400 Body surface area Derived from formula 1.74 m2 Jigna Sarabia ENVIRONMENTAL COMPLIANCE TECHNICIAN Work Phone: [employer] 12-25-2014 13:02-0400 Body temperature 98.3 [degF] Jigna Sarabia LPN Work Phone: [employer]. Comment on above: Method: Tympanic 12-25-2014 13:02-0400 Body weight 68.95 kg Jigna Sarabia ENVIRONMENTAL COMPLIANCE TECHNICIAN Work Phone: [employer]. 12-25-2014 13:02-0400 Diastolic blood pressure 71 mm[Hg] Jigna Degrooty ENVIRONMENTAL COMPLIANCE TECHNICIAN Work Phone: [employer]. Comment on above: Patient Position: Sitting; Cuff Location : Left Arm; Cuff Size: Standard 12-25-2014 13:02-0400 Heart rate 75 /min Jigna Sarabia LPN Work Phone: [employer]. Comment on above: Pattern: Regular 12-25-2014 13:02-0400 Systolic blood pressure 111 mm[Hg] Jigna Sarabia LPN Work Phone: [employer]. Comment on above: Patient Position: Sitting; Cuff Location : Left Arm; Cuff Size: Standard 10-23-2014 11:15-0500 Body height 162.56 cm Hortensia Ching MD Work Phone: [facility]; [employer]. 10-23-2014 11:15-0500 Body mass index (BMI) [Ratio] 25.75 kg/m2 Hortensia Ching MD Work Phone: [facility]; [employer]. 10-23-2014 11:15-0500 Body surface area Derived from formula 1.73 m2 Hortensia Ching MD Work Phone: [facility]; [employer]. 10-23-2014 11:15-0500 Body temperature 97.5 [degF] Hortensia Ching MD Work Phone: [facility]; [employer]. Comment on above: Method: Tympanic 10-23-2014 11:15-0500 Body weight 68.04 kg Hortensia Ching MD Work Phone: [facility]; [employer]. 10-23-2014 11:15-0500 Diastolic blood pressure 69 mm[Hg] Hortensia Ching MD Work Phone: [facility]; [employer]. Comment on above: Patient Position: Sitting; Cuff Location : Left Arm; Cuff Size: Standard 10-23-2014 11:15-0500 Heart rate 78 /min Hortensia Ching MD Work Phone: [facility]; [employer]. Comment on above: Pattern: Regular 10-23-2014 11:15-0500 Inhaled oxygen concentration 21 % Hortensia Ching MD Work Phone: [employer]. Comment on above: Room air 10-23-2014 11:15-0500 SaO2% (BldA) [Mass fraction] 98 % Hortensia Ching MD Work Phone: [employer]. 10-23-2014 11:15-0500 Systolic blood pressure 117 mm[Hg] Hortensia Ching MD Work Phone: [employer]. Comment on above: Patient Position: Sitting; Cuff Location : Left Arm; Cuff Size: Standard 09-14-2014 14:08-0500 Body temperature 97.6 [degF] Neilee L Vess ENVIRONMENTAL COMPLIANCE TECHNICIAN [employer]. Comment on above: Method: Tympanic 09-14-2014 14:08-0500 Body weight 69.85 kg Neilee L Vess ENVIRONMENTAL COMPLIANCE TECHNICIAN [employer]. 09-14-2014 14:08-0500 Diastolic blood pressure 73 mm[Hg] Neilee L Vess ENVIRONMENTAL COMPLIANCE TECHNICIAN [employer]. Comment on above: Patient Position: Sitting; Cuff Location : Right Arm; Cuff Size: Standard 09-14-2014 14:08-0500 Heart rate 78 /min Neilee L Vess ENVIRONMENTAL COMPLIANCE TECHNICIAN [employer]. Comment on above: Pattern: Regular 09-14-2014 14:08-0500 Systolic blood pressure 124 mm[Hg] Neilee L Vess ENVIRONMENTAL COMPLIANCE TECHNICIAN [employer]. Comment on above: Patient Position: Sitting; Cuff Location : Right Arm; Cuff Size: Standard 08-22-2014 09:47-0500 Body height 162.56 cm Willy Ferguson MD Work Phone: [facility]; [employer]. 08-22-2014 09:47-0500 Body mass index (BMI) [Ratio] 26.78 kg/m2 Willy Ferguson MD Work Phone: [employer]. 08-22-2014 09:47-0500 Body surface area Derived from formula 1.76 m2 Willy Ferguson MD Work Phone: [employer]. 08-22-2014 09:47-0500 Body weight 70.76 kg Willy Ferguson MD Work Phone: [employer]. 08-22-2014 09:47-0500 Diastolic blood pressure 60 mm[Hg] Willy Ferguson MD Work Phone: [employer]. Comment on above: Patient Position: Sitting; Cuff Location : Left Arm; Cuff Size: Standard 08-22-2014 09:47-0500 Heart rate 83 /min Willy Ferguson MD Work Phone: [employer]. Comment on above: Pattern: Regular 08-22-2014 09:47-0500 Inhaled oxygen concentration 21 % Willy Ferguson MD Work Phone: [employer]. Comment on above: Room air 08-22-2014 09:47-0500 SaO2% (BldA) [Mass fraction] 97 % Willy Ferguson MD Work Phone: [employer]. 08-22-2014 09:47-0500 Systolic blood pressure 108 mm[Hg] Willy Ferguson MD Work Phone: [employer]. Comment on above: Patient Position: Sitting; Cuff Location : Left Arm; Cuff Size: Standard 07-11-2014 10:29-0400 Body height 162.56 cm Sadaf Shea LPN [employer] 07-11-2014 10:29-0400 Body mass index (BMI) [Ratio] 26.95 kg/m2 Sadaf Shea LPN [facility], [facility].; [employer] [facility], [facility]. 07-11-2014 10:290400 Body surface area Derived from formula 1.76 m2 Sadaf Shea [facility], [facility].; [place] [employer] [facility], [place]. 07-11-2014 10:290400 Body weight 71.22 kg Sadaf Shea [facility], [facility].; [employer], [place]. 07-11-2014 10:290400 Diastolic blood pressure 77 mm[Hg] Stitzer Shabbir WEISSN [facility], [facility].; [employer]. Comment on above: Patient Position: Sitting; Cuff Location : Left Arm; Cuff Size: Standard 07-11-2014 10:290400 Heart rate 96 /min Stitzermario Shea [facility], [facility].; [employer]. Comment on above: Pattern: Regular 07-11-2014 10:29-0400 Systolic blood pressure 112 mm[Hg] Sadaf Shea ENVIRONMENTAL COMPLIANCE TECHNICIAN [facility], [facility].; [employer]. Comment on above: Patient Position: Sitting; Cuff Location : Left Arm; Cuff Size: Standard 06-08-2014 11:21-0400 Body temperature 97.9 [degF] Neilee L Vess ENVIRONMENTAL COMPLIANCE TECHNICIAN [facility], [facility].; [employer], [place]. Comment on above: Method: Tympanic 06-08-2014 11:210400 Body weight 70.76 kg Jordane L Vess ENVIRONMENTAL COMPLIANCE TECHNICIAN [facility], [facility].; [employer], [place]. 06-08-2014 11:21-0400 Diastolic blood pressure 69 mm[Hg] Neilee L Vess ENVIRONMENTAL COMPLIANCE TECHNICIAN [facility], [facility].; [employer]. Comment on above: Patient Position: Sitting; Cuff Location : Right Arm; Cuff Size: Standard 06-08-2014 11:21-0400 Heart rate 67 /min Neilee L Vess ENVIRONMENTAL COMPLIANCE TECHNICIAN [facility], [place].; [employer]. Comment on above: Pattern: Regular 06-08-2014 11:21-0400 Systolic blood pressure 125 mm[Hg] Neilee L Vess ENVIRONMENTAL COMPLIANCE TECHNICIAN [facility], [place].; [employer]. Comment on above: Patient Position: Sitting; Cuff Location : Right Arm; Cuff Size: Standard 04-27-2014 10:32-0400 Body height 162.56 cm Candy Grant Morales ENVIRONMENTAL COMPLIANCE TECHNICIAN [facility], Inc.; [employer] [facility], [facility] 04-27-2014 10:32-0400 Body mass index (BMI) [Ratio] 26.43 kg/m2 Candy Grant Morales ENVIRONMENTAL COMPLIANCE TECHNICIAN [facility], Inc.; [employer] [facility], Inc[facility] 04-27-2014 10:32-0400 Body surface area Derived from formula 1.75 m2 Candy Grant Morales LPN [facility], Inc.; [employer], [place]. 04-27-2014 10:32-0400 Body temperature 97.2 [degF] Candy Grant Morales ENVIRONMENTAL COMPLIANCE TECHNICIAN [facility], [facility].; [employer], [place]. Comment on above: Method: Tympanic 04-27-2014 10:32-0400 Body weight 69.85 kg Candy Grant Morales ENVIRONMENTAL COMPLIANCE TECHNICIAN [facility], Inc.; [employer] [facility], Inc[facility] 04-27-2014 10:32-0400 Diastolic blood pressure 68 mm[Hg] Candy Grant Morales ENVIRONMENTAL COMPLIANCE TECHNICIAN [place] [employer] [facility].; [employer], [place]. Comment on above: Patient Position: Sitting; Cuff Location : Left Arm; Cuff Size: Standard 04-27-2014 10:32-0400 Heart rate 70 /min Candy Grant Morales ENVIRONMENTAL COMPLIANCE TECHNICIAN [facility], [facility].; [employer], [place]. Comment on above: Pattern: Regular 04-27-2014 10:32-0400 Systolic blood pressure 104 mm[Hg] Candy Grant Morales ENVIRONMENTAL COMPLIANCE TECHNICIAN [facility], [facility].; [employer], [place]. Comment on above: Patient Position: Sitting; Cuff Location : Left Arm; Cuff Size: Standard 03-22-2014 15:58-0400 Body height 162.56 cm [facility] Work Phone: [place] [employer] [facility], [place].; [employer], [place]. 03-22-2014 15:58-0400 Body mass index (BMI) [Ratio] 27.46 kg/m2 [facility] Work Phone: [employer]. 03-22-2014 15:58-0400 Body surface area Derived from formula 1.78 m2 Jigna Cornell ENVIRONMENTAL COMPLIANCE TECHNICIAN Work Phone: [employer]. 03-22-2014 15:58-0400 Body weight 72.58 kg Jigna Cornell ENVIRONMENTAL COMPLIANCE TECHNICIAN Work Phone: [employer].; [employer]. 03-22-2014 15:58-0400 Diastolic blood pressure 80 mm[Hg] Jigna Cornell ENVIRONMENTAL COMPLIANCE TECHNICIAN Work Phone: [employer]. Comment on above: Patient Position: Sitting; Cuff Location : Left Arm; Cuff Size: Standard 03-22-2014 15:58-0400 Heart rate 80 /min Jigna Cornell ENVIRONMENTAL COMPLIANCE TECHNICIAN Work Phone: [employer]. Comment on above: Pattern: Regular 03-22-2014 15:58-0400 Systolic blood pressure 117 mm[Hg] Jigna Degrooty ENVIRONMENTAL COMPLIANCE TECHNICIAN Work Phone: [employer]. Comment on above: Patient Position: Sitting; Cuff Location : Left Arm; Cuff Size: Standard 02-20-2014 15:31-0400 Body height 162.56 cm Neilee L Vess ENVIRONMENTAL COMPLIANCE TECHNICIAN [employer]. 02-20-2014 15:31-0400 Body mass index (BMI) [Ratio] 27.46 kg/m2 Neilee L Vess ENVIRONMENTAL COMPLIANCE TECHNICIAN [employer]. 02-20-2014 15:31-0400 Body surface area Derived from formula 1.78 m2 Neilee L Vess ENVIRONMENTAL COMPLIANCE TECHNICIAN [employer]. 02-20-2014 15:31-0400 Body weight 72.58 kg Neilee L Vess ENVIRONMENTAL COMPLIANCE TECHNICIAN [employer]. 02-20-2014 15:31-0400 Diastolic blood pressure 67 mm[Hg] Neilee L Vess ENVIRONMENTAL COMPLIANCE TECHNICIAN [facility] [employer]. Comment on above: Patient Position: Sitting; Cuff Location : Right Arm; Cuff Size: Standard 02-20-2014 15:31-0400 Heart rate 89 /min Neilee L Vess ENVIRONMENTAL COMPLIANCE TECHNICIAN [facility] [employer] Comment on above: Pattern: Regular 02-20-2014 15:31-0400 Systolic blood pressure 121 mm[Hg] Neilee L Vess ENVIRONMENTAL COMPLIANCE TECHNICIAN [place] [employer] Comment on above: Patient Position: Sitting; Cuff Location : Right Arm; Cuff Size: Standard 12-27-2013 11:01-0400 Body height 162.56 cm Adams Oh MD Work Phone: [place] [employer] 12-27-2013 11:01-0400 Heart rate 68 /min Adams Oh MD Work Phone: [place] [employer]. Comment on above: Pattern: Regular 12-27-2013 11:01-0400 Respiratory rate 18 /min Adams Oh MD Work Phone: [employer]. Comment on above: Pattern: Unlabored 11-28-2013 13:50-0500 Body height 162.56 cm [facility] ENVIRONMENTAL COMPLIANCE TECHNICIAN Work Phone: [place] [employer].; [facility] 11-28-2013 13:50-0500 Body mass index (BMI) [Ratio] 26.09 kg/m2 [facility] Work Phone: [employer].; [employer] 11-28-2013 13:50-0500 Body surface area Derived from formula 1.74 m2 Jigna Cornell LPN Work Phone: [employer].; [employer] 11-28-2013 13:50-0500 Body weight 68.95 kg [facility] ENVIRONMENTAL COMPLIANCE TECHNICIAN Work Phone: [place] [employer].; [employer]. 11-28-2013 13:50-0500 Diastolic blood pressure 74 mm[Hg] Jigna Cornell ENVIRONMENTAL COMPLIANCE TECHNICIAN Work Phone: [place] [employer].; [employer]. Comment on above: Patient Position: Sitting; Cuff Location : Left Arm; Cuff Size: Standard 11-28-2013 13:50-0500 Heart rate 84 /min Jigna Cornell ENVIRONMENTAL COMPLIANCE TECHNICIAN Work Phone: [place] [employer].; [employer]. Comment on above: Pattern: Regular 11-28-2013 13:50-0500 Systolic blood pressure 112 mm[Hg] Jigna Cornell ENVIRONMENTAL COMPLIANCE TECHNICIAN Work Phone: [place] [employer].; [employer]. Comment on above: Patient Position: Sitting; Cuff Location : Left Arm; Cuff Size: Standard 11-04-2013 15:43-0500 Body height 163.83 cm Jigna Cornell ENVIRONMENTAL COMPLIANCE TECHNICIAN Work Phone: [employer]. 11-04-2013 15:43-0500 Body mass index (BMI) [Ratio] 25.01 kg/m2 Jigna Cornell ENVIRONMENTAL COMPLIANCE TECHNICIAN Work Phone: [place] [employer]. 11-04-2013 15:43-0500 Body surface area Derived from formula 1.73 m2 Jigna Cornell ENVIRONMENTAL COMPLIANCE TECHNICIAN Work Phone: [employer].; [employer] 11-04-2013 15:43-0500 Body weight 67.13 kg Jigna Cornell ENVIRONMENTAL COMPLIANCE TECHNICIAN Work Phone: [employer].; [employer] 11-04-2013 15:43-0500 Diastolic blood pressure 76 mm[Hg] Jigna Cornell ENVIRONMENTAL COMPLIANCE TECHNICIAN Work Phone: [employer].; [employer]. Comment on above: Patient Position: Sitting; Cuff Location : Left Arm; Cuff Size: Standard 11-04-2013 15:43-0500 Heart rate 76 /min Jigna Cornell ENVIRONMENTAL COMPLIANCE TECHNICIAN Work Phone: [employer]. Comment on above: Pattern: Regular 11-04-2013 15:43-0500 Systolic blood pressure 125 mm[Hg] Jigna Sarabia LPN Work Phone: [employer].; [employer]. Comment on above: Patient Position: Sitting; Cuff Location : Left Arm; Cuff Size: Standard 01-01-2013 10:53-0400 Body height 163.83 cm Sabrina Reynoso RN Work Phone: [employer].; [employer] 01-01-2013 10:53-0400 Body mass index (BMI) [Ratio] 21.97 kg/m2 Sabrina Reynoso RN Work Phone: [employer].; [employer] 01-01-2013 10:53-0400 Body surface area Derived from formula 1.64 m2 Sabrina Reynoso RN Work Phone: [employer] 01-01-2013 10:53-0400 Body temperature 97.8 [degF] Sabrina Reynsoo RN Work Phone: [employer].; [employer]. Comment on above: Method: Tympanic 01-01-2013 10:53-0400 Body weight 58.97 kg Sabrina Reynoso RN Work Phone: [employer].; [employer] 01-01-2013 10:53-0400 Diastolic blood pressure 67 mm[Hg] Sabrina Reynoso RN Work Phone: [employer]. Comment on above: Patient Position: Sitting; Cuff Location : Right Arm; Cuff Size: Standard 01-01-2013 10:53-0400 Heart rate 95 /min Sabrina Reynoso RN Work Phone: [employer].; [employer]. Comment on above: Pattern: Regular 01-01-2013 10:53-0400 Systolic blood pressure 104 mm[Hg] Sabrina Reynoso RN Work Phone: [facility], [place].; [employer] [facility] Comment on above: Patient Position: Sitting; Cuff Location : Right Arm; Cuff Size: Standard 11-16-2012 14:170500 Body weight 61.69 kg Prachi Childers [facility], [facility].; [employer] [employer]. 11-16-2012 14:17-0500 Diastolic blood pressure 88 mm[Hg] Prachi Childers [facility], [place] [employer]. Comment on above: Patient Position: Sitting; Cuff Location : Left Arm; Cuff Size: Large 11-16-2012 14:17-0500 Heart rate 79 /min Prachi Childers [facility], [place] [employer]. Comment on above: Pattern: Regular 11-16-2012 14:17-0500 Inhaled oxygen concentration 21 % Prachi Childers [facility], [place] [employer]. Comment on above: Room air 11-16-2012 14:17-0500 SaO2% (BldA) [Mass fraction] 97 % Prachi Childers [facility], [place] [employer], [place]. 11-16-2012 14:17-0500 Systolic blood pressure 126 mm[Hg] Prachi Childers [facility], [place] [employer]. Comment on above: Patient Position: Sitting; Cuff Location : Left Arm; Cuff Size: Large 10-25-2012 11:31-0500 Body temperature 97.7 [degF] Yecenia Bar ENVIRONMENTAL COMPLIANCE TECHNICIAN [facility], [place] [employer]. Comment on above: Method: Tympanic 10-25-2012 11:31-0500 Body weight 61.69 kg Yecenia Bar [facility], [place] [employer], [place]. 10-25-2012 11:31-0500 Diastolic blood pressure 83 mm[Hg] Yecenia Bar [facility], [place] [employer]. Comment on above: Patient Position: Sitting; Cuff Location : Left Arm; Cuff Size: Standard 10-25-2012 11:31-0500 Heart rate 103 /min Yecenia L Richert ENVIRONMENTAL COMPLIANCE TECHNICIAN [employer], [place] [employer]. Comment on above: Pattern: Regular 10-25-2012 11:31-0500 Systolic blood pressure 135 mm[Hg] Yecenia L Richert ENVIRONMENTAL COMPLIANCE TECHNICIAN [employer]. Comment on above: Patient Position: Sitting; Cuff Location : Left Arm; Cuff Size: Standard 01-29-2012 14:29-0400 Body weight 60.78 kg Neilee L Vess ENVIRONMENTAL COMPLIANCE TECHNICIAN [employer]. 01-29-2012 14:29-0400 Diastolic blood pressure 85 mm[Hg] Neilee L Vess ENVIRONMENTAL COMPLIANCE TECHNICIAN [employer]. Comment on above: Patient Position: Sitting; Cuff Location : Left Arm; Cuff Size: Standard 01-29-2012 14:29-0400 Heart rate 84 /min Neilee L Vess ENVIRONMENTAL COMPLIANCE TECHNICIAN [employer]. Comment on above: Pattern: Regular 01-29-2012 14:29-0400 Systolic blood pressure 130 mm[Hg] Neilee L Vess ENVIRONMENTAL COMPLIANCE TECHNICIAN [employer]. Comment on above: Patient Position: Sitting; Cuff Location : Left Arm; Cuff Size: Standard 06-30-2011 11:46-0400 Body weight 64.41 kg Jigna Cornell ENVIRONMENTAL COMPLIANCE TECHNICIAN Work Phone: [employer]. 06-30-2011 11:46-0400 Diastolic blood pressure 86 mm[Hg] Jigna Cornell ENVIRONMENTAL COMPLIANCE TECHNICIAN Work Phone: [employer]. Comment on above: Patient Position: Sitting; Cuff Location : Left Arm; Cuff Size: Standard 06-30-2011 11:46-0400 Heart rate 76 /min Jigna Cornell ENVIRONMENTAL COMPLIANCE TECHNICIAN Work Phone: [employer]. Comment on above: Pattern: Regular 06-30-2011 11:46-0400 Systolic blood pressure 132 mm[Hg] Jigna Cornell ENVIRONMENTAL COMPLIANCE TECHNICIAN Work Phone: [place] [employer]. Comment on above: Patient Position: Sitting; Cuff Location : Left Arm; Cuff Size: Standard 05-29-2011 10:040 Body weight 63.5 kg Neilee L Vess ENVIRONMENTAL COMPLIANCE TECHNICIAN [place] [employer]. 05-29-2011 10:040 Diastolic blood pressure 76 mm[Hg] Neilee L Vess ENVIRONMENTAL COMPLIANCE TECHNICIAN [place] [employer]. Comment on above: Patient Position: Sitting; Cuff Location : Left Arm; Cuff Size: Standard 05-29-2011 10: Heart rate 92 /min Neilee L Vess ENVIRONMENTAL COMPLIANCE TECHNICIAN [place] [employer]. Comment on above: Pattern: Regular 05-29-2011 10: Systolic blood pressure 110 mm[Hg] Neilee L Vess ENVIRONMENTAL COMPLIANCE TECHNICIAN [place] [employer]. Comment on above: Patient Position: Sitting; Cuff Location : Left Arm; Cuff Size: Standard 03-31-2011 11:040 Body temperature 97.3 [degF] Jigna Cornell ENVIRONMENTAL COMPLIANCE TECHNICIAN Work Phone: [employer]. Comment on above: Method: Tympanic 03-31-2011 11:0400 Body weight 69.4 kg Jigna Cornell ENVIRONMENTAL COMPLIANCE TECHNICIAN Work Phone: [employer] 03-31-2011 11:[id number] Diastolic blood pressure 86 mm[Hg] Jigna Cornell ENVIRONMENTAL COMPLIANCE TECHNICIAN Work Phone: [employer]. Comment on above: Patient Position: Sitting; Cuff Location : Left Arm; Cuff Size: Standard 03-31-2011 11:080400 Systolic blood pressure 130 mm[Hg] Jigna Cornell ENVIRONMENTAL COMPLIANCE TECHNICIAN Work Phone: [employer]. Comment on above: Patient Position: Sitting; Cuff Location : Left Arm; Cuff Size: Standard 03-19-2011 14:56-0400 Body weight 76.66 kg Jigna Cornell ENVIRONMENTAL COMPLIANCE TECHNICIAN Work Phone: [employer].; [employer]. 03-19-2011 14:56-0400 Diastolic blood pressure 80 mm[Hg] Jigna Cornell ENVIRONMENTAL COMPLIANCE TECHNICIAN Work Phone: [employer].; [employer]. Comment on above: Patient Position: Sitting; Cuff Location : Left Arm; Cuff Size: Standard 03-19-2011 14:56-0400 Heart rate 95 /min Jigna Cornell ENVIRONMENTAL COMPLIANCE TECHNICIAN Work Phone: [employer]. Comment on above: Pattern: Regular 03-19-2011 14:56-0400 Systolic blood pressure 117 mm[Hg] Jigna Cornell ENVIRONMENTAL COMPLIANCE TECHNICIAN Work Phone: [employer].; [employer]. Comment on above: Patient Position: Sitting; Cuff Location : Left Arm; Cuff Size: Standard 03-12-2011 12:58-0400 Body weight 77.11 kg Jigna Cornell ENVIRONMENTAL COMPLIANCE TECHNICIAN Work Phone: [employer].; [employer]. 03-12-2011 12:58-0400 Diastolic blood pressure 62 mm[Hg] Jigna Cornell ENVIRONMENTAL COMPLIANCE TECHNICIAN Work Phone: [employer]. Comment on above: Patient Position: Sitting; Cuff Location : Left Arm; Cuff Size: Standard 03-12-2011 12:58-0400 Heart rate 80 /min Jigna Cornell ENVIRONMENTAL COMPLIANCE TECHNICIAN Work Phone: [employer].; [employer]. Comment on above: Pattern: Regular 03-12-2011 12:58-0400 Systolic blood pressure 129 mm[Hg] Jigna Cornell ENVIRONMENTAL COMPLIANCE TECHNICIAN Work Phone: [employer].; [employer]. Comment on above: Patient Position: Sitting; Cuff Location : Left Arm; Cuff Size: Standard 03-05-2011 15:24-0400 Body weight 76.2 kg Jigna Cornell ENVIRONMENTAL COMPLIANCE TECHNICIAN Work Phone: [employer].; [employer]. 03-05-2011 15:24-0400 Diastolic blood pressure 79 mm[Hg] Jigna Cornell ENVIRONMENTAL COMPLIANCE TECHNICIAN Work Phone: [employer]. Comment on above: Patient Position: Sitting; Cuff Location : Left Arm; Cuff Size: Standard 03-05-2011 15:24-0400 Heart rate 83 /min Jigna Cornell ENVIRONMENTAL COMPLIANCE TECHNICIAN Work Phone: [employer]. Comment on above: Pattern: Regular 03-05-2011 15:24-0400 Systolic blood pressure 122 mm[Hg] Jigna Cornell ENVIRONMENTAL COMPLIANCE TECHNICIAN Work Phone: [employer]. Comment on above: Patient Position: Sitting; Cuff Location : Left Arm; Cuff Size: Standard 02-26-2011 11:59-0400 Body weight 75.3 kg Sabrina Reynoso RN Work Phone: [employer]. 02-26-2011 11:59-0400 Diastolic blood pressure 80 mm[Hg] Sabrina Reynoso RN Work Phone: [employer]. Comment on above: Patient Position: Sitting; Cuff Location : Left Arm; Cuff Size: Standard 02-26-2011 11:59-0400 Heart rate 102 /min Sabrina Reynoso RN Work Phone: [employer]. Comment on above: Pattern: Regular 02-26-2011 11:59-0400 Systolic blood pressure 118 mm[Hg] Sabrina Reynoso RN Work Phone: [employer]. Comment on above: Patient Position: Sitting; Cuff Location : Left Arm; Cuff Size: Standard 02-17-2011 11:15-0400 Body weight 76.2 kg Jigna Cornell ENVIRONMENTAL COMPLIANCE TECHNICIAN Work Phone: [employer]. 02-17-2011 11:15-0400 Diastolic blood pressure 78 mm[Hg] Jigna Cornell ENVIRONMENTAL COMPLIANCE TECHNICIAN Work Phone: [employer]. Comment on above: Patient Position: Sitting; Cuff Location : Left Arm; Cuff Size: Standard 02-17-2011 11:15-0400 Heart rate 88 /min Jigna Cornell ENVIRONMENTAL COMPLIANCE TECHNICIAN Work Phone: [employer]. Comment on above: Pattern: Regular 02-17-2011 11:15-0400 Systolic blood pressure 130 mm[Hg] Jigna Cornell ENVIRONMENTAL COMPLIANCE TECHNICIAN Work Phone: [employer]. Comment on above: Patient Position: Sitting; Cuff Location : Left Arm; Cuff Size: Standard 02-03-2011 10:37-0400 Body weight 74.39 kg Jignaedy Degrooty ENVIRONMENTAL COMPLIANCE TECHNICIAN Work Phone: [employer]. 02-03-2011 10:37-0400 Diastolic blood pressure 74 mm[Hg] Jigna Cornell ENVIRONMENTAL COMPLIANCE TECHNICIAN Work Phone: [employer]. Comment on above: Patient Position: Sitting; Cuff Location : Left Arm; Cuff Size: Standard 02-03-2011 10:37-0400 Heart rate 88 /min Jigna Cornell ENVIRONMENTAL COMPLIANCE TECHNICIAN Work Phone: [employer]. Comment on above: Pattern: Regular 02-03-2011 10:37-0400 Systolic blood pressure 124 mm[Hg] Jigna Cornell ENVIRONMENTAL COMPLIANCE TECHNICIAN Work Phone: [employer]. Comment on above: Patient Position: Sitting; Cuff Location : Left Arm; Cuff Size: Standard 01-06-2011 11:31-0400 Body weight 73.94 kg Jigna Cornell ENVIRONMENTAL COMPLIANCE TECHNICIAN Work Phone: [employer]. 01-06-2011 11:31-0400 Diastolic blood pressure 59 mm[Hg] Jigna Sarabia LPN Work Phone: [employer]. Comment on above: Patient Position: Sitting; Cuff Location : Left Arm; Cuff Size: Standard 01-06-2011 11:31-0400 Heart rate 81 /min Jigna Sarabia LPN Work Phone: [employer]. Comment on above: Pattern: Regular 01-06-2011 11:31-0400 Systolic blood pressure 103 mm[Hg] Jigna Sarabia LPN Work Phone: [employer]. Comment on above: Patient Position: Sitting; Cuff Location : Left Arm; Cuff Size: Standard 12-30-2010 13:42-0400 Body height 163.83 cm Sabrina Reynoso RN Work Phone: [employer]. 12-30-2010 13:42-0400 Body mass index (BMI) [Ratio] 27.21 kg/m2 Sabrina Reynoso RN Work Phone: [employer]. 12-30-2010 13:42-0400 Body surface area Derived from formula 1.79 m2 Sabrina Reynoso RN Work Phone: [employer]. 12-30-2010 13:42-0400 Body temperature 97.2 [degF] Sabrina Reynoso RN Work Phone: [employer]. Comment on above: Method: Tympanic 12-30-2010 13:42-0400 Body weight 73.03 kg Sabrina Reynoso RN Work Phone: [employer]. 12-30-2010 13:42-0400 Diastolic blood pressure 72 mm[Hg] Sabrina Reynoso RN Work Phone: [employer]. Comment on above: Patient Position: Sitting; Cuff Location : Left Arm; Cuff Size: Standard 12-30-2010 13:42-0400 Heart rate 92 /min Sabrina Reynoso RN Work Phone: [employer]. Comment on above: Pattern: Regular 12-30-2010 13:42-0400 Systolic blood pressure 121 mm[Hg] Sabrina Reynoso RN Work Phone: [employer]. Comment on above: Patient Position: Sitting; Cuff Location : Left Arm; Cuff Size: Standard 12-09-2010 10:29-0500 Body weight 70.76 kg Jignaedy Degrooty ENVIRONMENTAL COMPLIANCE TECHNICIAN Work Phone: [employer]. 12-09-2010 10:29-0500 Diastolic blood pressure 70 mm[Hg] Jigna Cornell ENVIRONMENTAL COMPLIANCE TECHNICIAN Work Phone: [employer]. Comment on above: Patient Position: Sitting; Cuff Location : Left Arm; Cuff Size: Standard 12-09-2010 10:29-0500 Heart rate 83 /min Jigna Cornell ENVIRONMENTAL COMPLIANCE TECHNICIAN Work Phone: [employer]. Comment on above: Pattern: Regular 12-09-2010 10:29-0500 Systolic blood pressure 130 mm[Hg] Jigna Cornell ENVIRONMENTAL COMPLIANCE TECHNICIAN Work Phone: [employer]. Comment on above: Patient Position: Sitting; Cuff Location : Left Arm; Cuff Size: Standard 11-11-2010 10:55-0500 Body weight 67.13 kg Jigna Cornell ENVIRONMENTAL COMPLIANCE TECHNICIAN Work Phone: [employer]. 11-11-2010 10:55-0500 Diastolic blood pressure 67 mm[Hg] Jigna Cornell ENVIRONMENTAL COMPLIANCE TECHNICIAN Work Phone: [employer]. Comment on above: Patient Position: Sitting; Cuff Location : Left Arm; Cuff Size: Standard 11-11-2010 10:55-0500 Heart rate 72 /min Jigna Cornell ENVIRONMENTAL COMPLIANCE TECHNICIAN Work Phone: [employer]. Comment on above: Pattern: Regular 11-11-2010 10:55-0500 Systolic blood pressure 120 mm[Hg] Jigna Cornell ENVIRONMENTAL COMPLIANCE TECHNICIAN Work Phone: [employer]. Comment on above: Patient Position: Sitting; Cuff Location : Left Arm; Cuff Size: Standard 10-14-2010 11:12-0500 Body weight 62.14 kg Jigna Cornell ENVIRONMENTAL COMPLIANCE TECHNICIAN Work Phone: [employer]. 10-14-2010 11:12-0500 Diastolic blood pressure 63 mm[Hg] Jigna Cornell ENVIRONMENTAL COMPLIANCE TECHNICIAN Work Phone: [employer]. Comment on above: Patient Position: Sitting; Cuff Location : Left Arm; Cuff Size: Standard 10-14-2010 11:12-0500 Heart rate 80 /min Jigna Cornell ENVIRONMENTAL COMPLIANCE TECHNICIAN Work Phone: [employer]. Comment on above: Pattern: Regular 10-14-2010 11:12-0500 Systolic blood pressure 115 mm[Hg] Jigna Cornell ENVIRONMENTAL COMPLIANCE TECHNICIAN Work Phone: [employer]. Comment on above: Patient Position: Sitting; Cuff Location : Left Arm; Cuff Size: Standard 09-16-2010 11:19-0500 Body weight 60.33 kg Jigna Cornell ENVIRONMENTAL COMPLIANCE TECHNICIAN Work Phone: [employer]. 09-16-2010 11:19-0500 Diastolic blood pressure 66 mm[Hg] Jigna Cornell ENVIRONMENTAL COMPLIANCE TECHNICIAN Work Phone: [employer]. Comment on above: Patient Position: Sitting; Cuff Location : Left Arm; Cuff Size: Standard 09-16-2010 11:19-0500 Heart rate 83 /min Jigna Cornell ENVIRONMENTAL COMPLIANCE TECHNICIAN Work Phone: [employer]. Comment on above: Pattern: Regular 09-16-2010 11:19-0500 Systolic blood pressure 105 mm[Hg] Jigna Cornell ENVIRONMENTAL COMPLIANCE TECHNICIAN Work Phone: [employer]. Comment on above: Patient Position: Sitting; Cuff Location : Left Arm; Cuff Size: Standard 08-19-2010 15:11-0500 Body height 163.83 cm Jigna Cornell ENVIRONMENTAL COMPLIANCE TECHNICIAN Work Phone: [employer]. 08-19-2010 15:11-0500 Body mass index (BMI) [Ratio] 22.48 kg/m2 Jigna Cornell ENVIRONMENTAL COMPLIANCE TECHNICIAN Work Phone: [employer]. 08-19-2010 15:11-0500 Body surface area Derived from formula 1.65 m2 Jigna Cornell ENVIRONMENTAL COMPLIANCE TECHNICIAN Work Phone: [employer]. 08-19-2010 15:11-0500 Body weight 60.33 kg Jigna Cornell ENVIRONMENTAL COMPLIANCE TECHNICIAN Work Phone: [employer]. 08-19-2010 15:11-0500 Diastolic blood pressure 71 mm[Hg] Jigna Cornell ENVIRONMENTAL COMPLIANCE TECHNICIAN Work Phone: [employer]. Comment on above: Patient Position: Sitting; Cuff Location : Left Arm; Cuff Size: Standard 08-19-2010 15:11-0500 Heart rate 82 /min Jigna Cornell ENVIRONMENTAL COMPLIANCE TECHNICIAN Work Phone: [employer]. Comment on above: Pattern: Regular 08-19-2010 15:11-0500 Systolic blood pressure 129 mm[Hg] Jigna Cornell ENVIRONMENTAL COMPLIANCE TECHNICIAN Work Phone: [facility]; [facility] Comment on above: Patient Position: Sitting; Cuff Location : Left Arm; Cuff Size: Standard Encounters Encounter Date Encounter Type Care Provider Facility Start: 11-07-2025 ambulatory Khushbu Meredith Facility:[facility] Start: 08-22-2025 ambulatory Khushbu Meredith Facility:[facility] Start: 08-21-2025 ambulatory Khushbu Meredith Facility:[facility] Start: 08-03-2025 End: 08-04-2025 ambulatory Khushbu Meredith Facility:[facility] Start: 08-03-2025 End: 08-03-2025 ambulatory Khushbu Meredith Facility:[facility] Start: 01-03-2025 End: 01-03-2025 Office outpatient visit 25 minutes Hortensia Ching MD Work Phone: [facility] Start: 01-03-2025 Hortensia winter MD Work Phone: [facility] Start: 12-28-2024 End: 12-28-2024 Office outpatient visit 15 minutes Hortensia Ching MD Work Phone: [facility] Start: 03-02-2024 End: 03-02-2024 Office outpatient visit 15 minutes Hortensia Ching MD Work Phone: [facility] Start: 07-17-2023 End: 07-17-2023 Historical Summary Hortensia Ching MD Work Phone: [facility] Start: 07-17-2023 End: 07-17-2023 Hortensia Ching MD Work Phone: [facility] Start: 07-06-2023 End: 07-06-2023 Office outpatient visit 15 minutes Hortensia Ching MD Work Phone: [facility] Start: 05-25-2023 End: 05-25-2023 Office outpatient visit 15 minutes Hortensia Ching MD Work Phone: [facility] Start: 04-29-2023 End: 04-29-2023 Patient encounter procedure Hortensia Ching MD Work Phone: [facility] Start: 04-29-2023 End: 04-29-2023 Hortensia Ching MD Work Phone: [facility] Start: 04-28-2023 End: 04-28-2023 Office outpatient visit 25 minutes Hortensia Ching MD Work Phone: [facility] Start: 03-27-2023 End: 03-27-2023 Office outpatient visit 15 minutes Hortensia Ching MD Work Phone: [facility] Start: 03-03-2023 End: 03-03-2023 Medication Hortensia Ching MD Work Phone: [facility] Start: 03-03-2023 End: 03-03-2023 Hortensia Ching MD Work Phone: [facility] Start: 02-24-2023 End: 02-24-2023 Office outpatient visit 25 minutes Hortensia Ching MD Work Phone: [facility] Start: 07-01-2021 End: 07-01-2021 Office outpatient visit 15 minutes Hortensia Ching MD Work Phone: [facility] Start: 05-23-2021 End: 05-23-2021 Office outpatient visit 15 minutes Hortensia Ching MD Work Phone: [facility] Start: 09-21-2019 End: 09-21-2019 Follow-up encounter Hortensia Ching MD Work Phone: [facility] Start: 09-21-2019 End: 09-21-2019 Hortensia Ching MD Work Phone: [facility] Start: 06-27-2019 End: 06-27-2019 Follow-up encounter Hortensia Ching MD Work Phone: [facility] Start: 06-27-2019 End: 06-27-2019 Hortensia Ching MD Work Phone: [facility] Start: 04-20-2019 End: 04-20-2019 Follow-up encounter Hortensia Ching MD Work Phone: [facility] Start: 04-20-2019 End: 04-20-2019 Hortensia Ching MD Work Phone: [facility] Start: 02-25-2019 End: 02-25-2019 Patient encounter procedure Hortensia Ching MD Work Phone: [facility] Start: 02-25-2019 End: 02-25-2019 Hortensia Ching MD Work Phone: [facility] Start: 02-02-2019 End: 02-02-2019 Follow-up encounter Hortensia Ching MD Work Phone: [facility] Start: 02-02-2019 End: 02-02-2019 Hortensia Ching MD Work Phone: [facility] Start: 12-28-2018 End: 12-28-2018 Office outpatient visit 15 minutes Hortensia Ching MD Work Phone: [facility] Start: 12-01-2018 End: 12-01-2018 Follow-up encounter Hortensia Ching MD Work Phone: [facility] Start: 12-01-2018 End: 12-01-2018 Hortensia Ching MD Work Phone: [facility] Start: 12-01-[address] [facility] Start: 11-02-2018 End: 11-02-2018 Orders Hortensia Ching MD Work Phone: [employer] Start: 11-02-2018 End: 11-02-2018 Hortensia Ching MD Work Phone: [facility] Start: 10-20-[address] [facility] Start: 10-20-2018 End: 10-20-2018 Follow-up encounter Hortensia Ching MD Work Phone: [facility] Start: 10-20-2018 End: 10-20-2018 Hortensia Ching MD Work Phone: [facility] Start: 10-19-2018 End: 10-19-2018 Office outpatient visit 25 minutes Hortensia Ching MD Work Phone: [facility] Start: 09-15-2018 End: 09-15-2018 Follow-up encounter Hortensia Ching MD Work Phone: [facility] Start: 09-15-2018 End: 09-15-2018 Hortensia Ching MD Work Phone: [facility] Start: 08-11-2018 End: 08-11-2018 Follow-up encounter Hortensia Ching MD Work Phone: [facility] Start: 08-11-2018 End: 08-11-2018 Hortensia Ching MD Work Phone: [facility] Start: 07-14-2018 End: 07-14-2018 Follow-up encounter Hortensia Ching MD Work Phone: [facility] Start: 07-14-2018 End: 07-14-2018 Hortensia Ching MD Work Phone: [facility] Start: 07-01-2018 End: 07-01-2018 Office outpatient visit 25 minutes Hortensia Ching MD Work Phone: [facility] Start: 06-09-2018 Patient encounter procedure [facility] Start: 05-17-2018 End: 05-17-2018 Office outpatient visit 15 minutes Hortensia Ching MD Work Phone: [facility] Start: 04-19-2018 End: 04-19-2018 Medication Hrotensia Ching MD Work Phone: [facility] Start: 04-19-2018 End: 04-19-2018 Hortensia Ching MD Work Phone: [facility] Start: 04-19-2018 End: 04-19-2018 Office outpatient visit 15 minutes Hortensia Ching MD Work Phone: [facility] Start: 03-16-2018 End: 03-16-2018 Office outpatient visit 25 minutes Hortensia Ching MD Work Phone: [facility] Start: 10-16-2017 End: 10-16-2017 Office outpatient visit 15 minutes Hortensia Ching MD Work Phone: [facility] Start: 09-21-2017 End: 09-21-2017 Office outpatient visit 15 minutes Hortensia Ching MD Work Phone: [facility] Start: 07-30-2017 End: 07-30-2017 Office outpatient visit 15 minutes Hortensia Ching MD Work Phone: [facility] Start: 07-08-2017 End: 07-09-2017 Office outpatient visit 15 minutes Hortensia Ching MD Work Phone: [facility] Start: 06-10-2017 End: 06-10-2017 Telephone follow-up Hortensia Ching MD Work Phone: [facility] Start: 06-10-2017 End: 06-10-2017 Hortensia Ching MD Work Phone: [facility] Start: 06-09-2017 End: 06-09-2017 Office outpatient visit 15 minutes Hortensia Ching MD Work Phone: [facility] Start: 05-12-2017 End: 05-12-2017 Office outpatient visit 15 minutes Hortensia Ching MD Work Phone: [facility] Start: 05-07-2017 End: 05-07-2017 Office outpatient visit 15 minutes Hortensia Ching MD Work Phone: [facility] Start: 04-09-2017 End: 04-09-2017 Patient encounter procedure Hortensia Ching MD Work Phone: [facility] Start: 04-09-2017 End: 04-09-2017 Hortensia Ching MD Work Phone: [facility] Start: 02-10-2017 End: 02-10-2017 Office outpatient visit 15 minutes Hortensia Ching MD Work Phone: [facility] Start: 01-13-2017 End: 01-13-2017 Office outpatient visit 15 minutes Hortensia Ching MD Work Phone: [facility] Start: 12-30-2016 End: 12-30-2016 Patient encounter procedure Hortensia Ching MD Work Phone: [facility] Start: 12-30-2016 End: 12-30-2016 Hortensia Ching MD Work Phone: [facility] Start: 11-20-2016 End: 11-20-2016 Medication Hortensia Ching MD Work Phone: [employer] Start: 11-20-2016 End: 11-20-2016 Hortensia Ching MD Work Phone: [employer]. Start: 11-20-2016 End: 11-20-2016 Patient encounter procedure Hortensia Ching MD Work Phone: [facility] Start: 11-20-2016 End: 11-20-2016 Hortensia Ching MD Work Phone: [employer]. Start: 11-06-2016 End: 11-06-2016 Orders Hortensia Ching MD Work Phone: [employer]. Start: 11-06-2016 End: 11-06-2016 Hortensia Ching MD Work Phone: [facility] Start: 09-30-2016 End: 10-01-2016 Patient encounter procedure Hortensia Ching MD Work Phone: [facility] Start: 09-30-2016 End: 10-01-2016 Hortensia Ching MD Work Phone: [facility] Start: 08-06-2016 End: 08-06-2016 Patient encounter procedure Hortensia Ching MD Work Phone: [facility] Start: 08-06-2016 End: 08-06-2016 Hortensia Ching MD Work Phone: [facility] Start: 08-02-2016 End: 08-02-2016 Orders Hortensia Ching MD Work Phone: [employer]. Start: 08-02-2016 End: 08-02-2016 Hortensia Ching MD Work Phone: [employer]. Start: 07-31-2016 End: 08-02-2016 Patient encounter procedure Hortensia Ching MD Work Phone: [facility] Start: 07-31-2016 End: 08-02-2016 Hortensia Ching MD Work Phone: [facility] Start: 07-03-2016 End: 07-03-2016 Patient encounter procedure Hortensia Ching MD Work Phone: [employer]. Start: 07-03-2016 End: 07-03-2016 Hortensia Ching MD Work Phone: [facility] Start: 04-01-2016 End: 04-02-2016 Medication Hortensia Ching MD Work Phone: [employer]. Start: 04-01-2016 End: 04-02-2016 Hortensia Ching MD Work Phone: [employer]. Start: 04-01-2016 End: 04-01-2016 Orders Hortensia Ching MD Work Phone: [employer]. Start: 04-01-2016 End: 04-01-2016 Hortensia Ching MD Work Phone: [facility] Start: 03-28-2016 End: 03-28-2016 Historical Summary Hortensia Ching MD Work Phone: [facility] Start: 03-28-2016 End: 03-28-2016 Hortensia Ching MD Work Phone: [facility] Start: 03-26-2016 End: 03-26-2016 Patient encounter procedure Hortensia Ching MD Work Phone: [employer]. Start: 03-26-2016 End: 03-26-2016 Hortensia Ching MD Work Phone: [facility] Start: 03-19-2016 End: 03-19-2016 Office outpatient visit 15 minutes Hortensia Ching MD Work Phone: [facility] Start: 01-28-2016 End: 01-28-2016 Orders Hortensia Ching MD Work Phone: [facility] Start: 01-28-2016 End: 01-28-2016 Hortensia Ching MD Work Phone: [facility] Start: 12-10-2015 End: 12-10-2015 Patient encounter procedure Hortensia Ching MD Work Phone: [employer]. Start: 12-10-2015 End: 12-10-2015 Hortensia Ching MD Work Phone: [facility] Start: 09-14-2015 End: 09-14-2015 Patient encounter procedure Hortensia Ching MD Work Phone: [employer]. Start: 09-14-2015 End: 09-14-2015 Hortensia Ching MD Work Phone: [facility] Start: 08-17-2015 End: 08-17-2015 Office outpatient visit 15 minutes Hortensia Ching MD Work Phone: [facility] Start: 06-20-2015 End: 06-20-2015 Orders Hortensia Ching MD Work Phone: [facility] Start: 06-20-2015 End: 06-20-2015 Hortensia Ching MD Work Phone: [facility] Start: 05-17-2015 End: 05-17-2015 Patient encounter procedure Hortensia Ching MD Work Phone: [employer]. Start: 05-17-2015 End: 05-17-2015 Hortensia Ching MD Work Phone: [employer]. Start: 05-11-2015 End: 05-14-2015 Patient encounter procedure Hortensia Ching MD Work Phone: [employer]. Start: 05-11-2015 End: 05-14-2015 Hortensia Ching MD Work Phone: [employer]. Start: 05-10-2015 End: 05-10-2015 Orders Hortensia Ching MD Work Phone: [employer]. Start: 05-10-2015 End: 05-10-2015 Hortensia Ching MD Work Phone: [employer]. Start: 04-11-2015 End: 04-11-2015 Orders Hortensia Ching MD Work Phone: [employer]. Start: 04-11-2015 End: 04-11-2015 Hortensia Ching MD Work Phone: [employer]. Start: 04-09-2015 End: 04-09-2015 Orders Hortensia Ching MD Work Phone: [employer]. Start: 04-09-2015 End: 04-09-2015 Hortensia Ching MD Work Phone: [employer]. Start: 04-09-2015 End: 04-09-2015 Patient encounter procedure Hortensia Ching MD Work Phone: [employer]. Start: 04-09-2015 End: 04-09-2015 Hortensia Ching MD Work Phone: [employer]. Start: 12-25-2014 End: 12-25-2014 Patient encounter procedure Hortensia Ching MD Work Phone: [facility] Start: 12-25-2014 End: 12-25-2014 Hortensia Ching MD Work Phone: [facility] Start: 10-23-2014 End: 10-23-2014 Patient encounter procedure Hortensia Ching MD Work Phone: [facility] Start: 10-23-2014 End: 10-23-2014 Hortensia Ching MD Work Phone: [facility] Start: 10-18-2014 End: 10-19-2014 Orders Hortensia Ching MD Work Phone: [employer]. Start: 10-18-2014 End: 10-19-2014 Hortensia Ching MD Work Phone: [facility] Start: 09-21-2014 End: 09-21-2014 Historical Summary Hortensia Ching MD Work Phone: [facility] Start: 09-21-2014 End: 09-21-2014 Hortensia Ching MD Work Phone: [facility] Start: 09-18-2014 End: 09-18-2014 Orders Hortensia Ching MD Work Phone: [facility] Start: 09-18-2014 End: 09-18-2014 Hortensia Ching MD Work Phone: [facility] Start: 09-14-2014 End: 09-21-2014 Patient encounter procedure Hortensia Ching MD Work Phone: [facility] Start: 09-14-2014 End: 09-21-2014 Hortensia Ching MD Work Phone: [facility] Start: 08-22-2014 End: 08-22-2014 Office outpatient visit 15 minutes Hortensia Ching MD Work Phone: [facility] Start: 07-21-2014 End: 07-21-2014 Medication Hortensia Ching MD Work Phone: [facility] Start: 07-21-2014 End: 07-21-2014 Hortensia Ching MD Work Phone: [facility] Start: 07-11-2014 End: 07-11-2014 Office outpatient visit 15 minutes Hortensia Ching MD Work Phone: [facility] Start: 06-08-2014 End: 06-08-2014 Patient encounter procedure Hortensia Ching MD Work Phone: [facility] Start: 06-08-2014 End: 06-08-2014 Hortensia Ching MD Work Phone: [employer]. Start: 05-31-2014 End: 05-31-2014 Orders Hortensia Ching MD Work Phone: [facility] Start: 05-31-2014 End: 05-31-2014 Hortensia Ching MD Work Phone: [facility] Start: 05-19-2014 End: 06-10-2014 Orders Hortensia Ching MD Work Phone: [facility] Start: 05-19-2014 End: 06-10-2014 Hortensia Ching MD Work Phone: [facility] Start: 05-12-2014 End: 05-12-2014 Orders Hortensia Ching MD Work Phone: [employer]. Start: 05-12-2014 End: 05-12-2014 Hortensia Ching MD Work Phone: [facility] Start: 04-27-2014 End: 04-27-2014 Patient encounter procedure Hortensia Ching MD Work Phone: [facility] Start: 04-27-2014 End: 04-27-2014 Hortensia Ching MD Work Phone: [facility] Start: 04-03-2014 End: 04-03-2014 Orders Hortensia Ching MD Work Phone: [facility] Start: 04-03-2014 End: 04-03-2014 Hortensia Ching MD Work Phone: [employer]. Start: 03-31-2014 End: 03-31-2014 Orders Hortensia Ching MD Work Phone: [employer]. Start: 03-31-2014 End: 03-31-2014 Hortensia Ching MD Work Phone: [employer]. Start: 03-30-2014 End: 03-30-2014 Orders Hortensia Ching MD Work Phone: [employer]. Start: 03-30-2014 End: 03-30-2014 Hortensia Ching MD Work Phone: [facility] Start: 03-22-2014 End: 03-23-2014 Patient encounter procedure Hortensia Ching MD Work Phone: [employer]. Start: 03-22-2014 End: 03-23-2014 Hortensia Ching MD Work Phone: [facility] Start: 02-20-2014 End: 02-20-2014 Patient encounter procedure Hortensia Ching MD Work Phone: [facility] Start: 02-20-2014 End: 02-20-2014 Hortensia Ching MD Work Phone: [employer]. Start: 02-02-2014 End: 02-02-2014 Orders Hortensia Ching MD Work Phone: [facility] Start: 02-02-2014 End: 02-02-2014 Hortensia Ching MD Work Phone: [employer]. Start: 12-27-2013 End: 12-27-2013 Patient encounter procedure Hortensia Ching MD Work Phone: [facility] Start: 12-27-2013 End: 12-27-2013 Hortensia Ching MD Work Phone: [facility] Start: 12-21-2013 End: 12-21-2013 Orders Hortensia Ching MD Work Phone: [employer]. Start: 12-21-2013 End: 12-21-2013 Hortensia Ching MD Work Phone: [facility] Start: 11-28-2013 End: 11-28-2013 Patient encounter procedure Hortensia Ching MD Work Phone: [employer]. Start: 11-28-2013 End: 11-28-2013 Hortensia Ching MD Work Phone: [employer]. Start: 11-19-2013 End: 11-21-2013 Orders Hortensia Ching MD Work Phone: [facility] Start: 11-19-2013 End: 11-21-2013 Hortensia Ching MD Work Phone: [employer]. Start: 11-10-2013 End: 11-10-2013 Orders Hortensia Ching MD Work Phone: [facility] Start: 11-10-2013 End: 11-10-2013 Hortensia Ching MD Work Phone: [facility] Start: 11-04-2013 End: 11-04-2013 Patient encounter procedure Hortensia Ching MD Work Phone: [facility] Start: 11-04-2013 End: 11-04-2013 Hortensia Ching MD Work Phone: [facility] Start: 09-30-2013 End: 09-30-2013 Medication Hortensia Ching MD Work Phone: [employer]. Start: 09-30-2013 End: 09-30-2013 Hortensia Ching MD Work Phone: [facility] Start: 03-09-2013 End: 03-09-2013 Medication Hortensia Ching MD Work Phone: [employer]. Start: 03-09-2013 End: 03-09-2013 Hortensia Ching MD Work Phone: [employer]. Start: 02-15-2013 End: 02-15-2013 Medication Hortensia Ching MD Work Phone: [employer]. Start: 02-15-2013 End: 02-15-2013 Hortensia Ching MD Work Phone: [employer]. Start: 02-11-2013 End: 02-11-2013 Medication Hortensia Ching MD Work Phone: [employer]. Start: 02-11-2013 End: 02-11-2013 Hortensia Ching MD Work Phone: [employer]. Start: 01-01-2013 End: 01-01-2013 Patient encounter procedure Hortensia Ching MD Work Phone: [employer]. Start: 01-01-2013 End: 01-01-2013 Hortensia Ching MD Work Phone: [facility] Start: 12-06-2012 End: 12-06-2012 Medication Hortensia Ching MD Work Phone: [employer]. Start: 12-06-2012 End: 12-06-2012 Hortensia Ching MD Work Phone: [facility] Start: 11-16-2012 End: 11-16-2012 Patient encounter procedure Hortensia Ching MD Work Phone: [employer]. Start: 11-16-2012 End: 11-16-2012 Hortensia Ching MD Work Phone: [facility] Start: 11-11-2012 End: 11-12-2012 Medication Hortensia Ching MD Work Phone: [employer]. Start: 11-11-2012 End: 11-12-2012 Hortensia Ching MD Work Phone: [facility] Start: 10-25-2012 End: 10-26-2012 Patient encounter procedure Hortensia Ching MD Work Phone: [facility] Start: 10-25-2012 End: 10-26-2012 Hortensia Ching MD Work Phone: [employer]. Start: 10-20-2012 End: 10-20-2012 Medication Hortensia Ching MD Work Phone: [employer]. Start: 10-20-2012 End: 10-20-2012 Hortensia Ching MD Work Phone: [facility] Start: 05-19-2012 End: 05-19-2012 Patient encounter procedure Hortensia Ching MD Work Phone: [employer]. Start: 05-19-2012 End: 05-19-2012 Hortensia Ching MD Work Phone: [facility] Start: 01-29-2012 End: 01-29-2012 Patient encounter procedure Hortensia Ching MD Work Phone: [employer]. Start: 01-29-2012 End: 01-29-2012 Hortensia Ching MD Work Phone: [employer]. Start: 12-08-2011 End: 12-08-2011 Orders Hortensia Ching MD Work Phone: [employer]. Start: 12-08-2011 End: 12-08-2011 Hortensia Ching MD Work Phone: [employer]. Start: 11-04-2011 End: 11-04-2011 Medication Hortensia Ching MD Work Phone: [employer]. Start: 11-04-2011 End: 11-04-2011 Hortensia Ching MD Work Phone: [employer]. Start: 10-01-2011 End: 10-01-2011 Medication Hortensia Ching MD Work Phone: [employer]. Start: 10-01-2011 End: 10-01-2011 Hortensia Ching MD Work Phone: [facility] Start: 08-23-2011 End: 08-23-2011 Medication Hortensia Ching MD Work Phone: [employer]. Start: 08-23-2011 End: 08-23-2011 Hortensia Ching MD Work Phone: [facility] Start: 06-30-2011 End: 06-30-2011 Patient encounter procedure Hortensia Ching MD Work Phone: [employer]. Start: 06-30-2011 End: 06-30-2011 Hortensia Ching MD Work Phone: [employer]. Start: 05-29-2011 End: 05-29-2011 Patient encounter procedure Hortensia Cihng MD Work Phone: [facility] Start: 05-29-2011 End: 05-29-2011 Hortensia Ching MD Work Phone: [facility] Start: 03-31-2011 End: 04-14-2011 Patient encounter procedure Hortensia Ching MD Work Phone: [facility] Start: 03-31-2011 End: 04-14-2011 Hortensia Ching MD Work Phone: [facility] Start: 03-19-2011 End: 03-19-2011 Patient encounter procedure Hortensia Ching MD Work Phone: [employer]. Start: 03-19-2011 End: 03-19-2011 Hortensia Ching MD Work Phone: [facility] Start: 03-12-2011 End: 03-12-2011 Patient encounter procedure Hortensia Ching MD Work Phone: [facility] Start: 03-12-2011 End: 03-12-2011 Hortensia Ching MD Work Phone: [facility] Start: 03-05-2011 End: 03-05-2011 Patient encounter procedure Hortensia Ching MD Work Phone: [facility] Start: 03-05-2011 End: 03-05-2011 Hortensia Ching MD Work Phone: [employer]. Start: 02-26-2011 End: 02-26-2011 Patient encounter procedure Hortensia Ching MD Work Phone: [employer]. Start: 02-26-2011 End: 02-26-2011 Hortensia Ching MD Work Phone: [facility] Start: 02-17-2011 End: 02-20-2011 Patient encounter procedure Hortensia Ching MD Work Phone: [employer]. Start: 02-17-2011 End: 02-20-2011 Hortensia Ching MD Work Phone: [facility] Start: 02-03-2011 End: 02-03-2011 Patient encounter procedure Hortensia Ching MD Work Phone: [employer]. Start: 02-03-2011 End: 02-03-2011 Hortensia Ching MD Work Phone: [employer]. Start: 01-06-2011 End: 01-06-2011 Patient encounter procedure Hortensia Ching MD Work Phone: [facility] Start: 01-06-2011 End: 01-06-2011 Hortensia Ching MD Work Phone: [employer]. Start: 12-30-2010 End: 12-30-2010 Patient encounter procedure Hortensia Ching MD Work Phone: [facility] Start: 12-30-2010 End: 12-30-2010 Hortensia Ching MD Work Phone: [facility] Start: 12-09-2010 End: 12-09-2010 Patient encounter procedure Hortensia Ching MD Work Phone: [facility] Start: 12-09-2010 End: 12-09-2010 Hortensia Ching MD Work Phone: [facility] Start: 11-11-2010 End: 11-11-2010 Patient encounter procedure Hortensia Ching MD Work Phone: [employer] [facility] Start: 11-11-2010 End: 11-11-2010 Hortensia Ching MD Work Phone: [employer] Start: 10-14-2010 End: 10-14-2010 Orders Hortensia Ching MD Work Phone: [employer] Start: 10-14-2010 End: 10-14-2010 Patient encounter procedure Hortensia Ching MD Work Phone: [employer]. Start: 10-14-2010 End: 10-14-2010 Hortensia Ching MD Work Phone: [employer] Start: 09-16-2010 End: 09-16-2010 Patient encounter procedure Hortensia Ching MD Work Phone: [employer] Start: 09-16-2010 End: 09-16-2010 Hortensia Ching MD Work Phone: [employer] Start: 08-19-2010 End: 08-19-2010 Patient encounter procedure Hortensia Ching MD Work Phone: [facility] Start: 08-19-2010 End: 08-19-2010 Hortensia Ching MD Work Phone: [employer] Start: 07-26-2010 End: 07-26-2010 Nursing evaluation of patient and report Hortensia Ching MD Work Phone: [facility] Start: 07-26-2010 End: 07-26-2010 Hortensia Ching MD Work Phone: [facility] Start: 06-21-2010 End: 06-21-2010 Medication Hortensia Ching MD Work Phone: [facility] Start: 06-21-2010 End: 06-21-2010 Hortensia Ching MD Work Phone: [facility] Start: 06-20-2010 End: 06-20-2010 Medication Hortensia Ching MD Work Phone: [employer] [facility] Start: 06-20-2010 End: 06-20-2010 Hortensia Ching MD Work Phone: [employer] [facility] Procedures Date Procedure Procedure Detail Performing Clinician Start: 01-03-2025 End: 02-14-2025 Xtrnl pt activ ecg transmis w/r&i 30 days Khushbu Meredith PA-C Work Phone: Start: 12-30-2024 Urinalysis Comment on above: Result Comment: URIN ALYSIS Performed By: #### [id number] ####[facility],[address] [place] [address] Start: 07-16-2023 End: 07-16-2023 MRI lumbar spine Hortensia Montoya Work Phone: Comment on above: post surgical change s Start: 07-16-2023 End: 07-16-2023 Hortensia Montoya Work Phone: Start: 04-28-2023 End: 04-29-2023 Radex spine lumbosacral 2/3 views Khushbu Meredith PA-C Work Phone: Start: 10-16-2017 End: 10-16-2017 Body mass index documented Hortensia cross MD Work Phone: Start: 09-21-2017 End: 09-21-2017 Body mass index documented Adams Oh MD Work Phone: Start: 09-30-2016 End: 10-07-2016 Us breast uni real time with image complete Adams Oh MD Work Phone: Start: 03-26-2016 End: 03-28-2016 Us pelvic nonobstetric real-time image complete Hortensia Ching MD Work Phone: Start: 03-05-2016 End: 03-05-2016 Ultrasound, Pelvic Preethi Burt MA Comment on above: RO cyst 5cm Start: 05-11-2015 End: 05-17-2015 Mri spinal canal lumbar w/o contrast material Hortensia Ching MD Work Phone: Start: 04-09-2015 End: 04-09-2015 Radex wrist complete minimum 3 views Hortensia Ching MD Work Phone: Start: 10-23-2014 End: 10-23-2014 Chest x-ray Hortensia Montoya Work Phone: Start: 09-29-2014 End: 09-29-2014 Appendectomy Preethi Burt MA Start: 09-18-2014 End: 12-07-2014 Us exam, breast(s) Hortensia Montoya Work Phone: Start: 09-14-2014 End: 12-07-2014 Us chest real time w/image documentation Hortensia Ching MD Work Phone: Start: 09-04-2014 End: 09-04-2014 Ultrasonography Preethi Burt MA Comment on above: 09/2014 neg breast u /s Start: 11-28-2013 End: 12-26-2015 Polysom 6/>yrs sleep 4/> addl dai attnd Hortensia Ching MD Work Phone: Start: 10-05-2013 End: 10-05-2013 MRI of brain and brain stem Preethi Burt MA Comment on above: Normal. Start: 11-16-2012 End: 11-16-2012 Meperidine hydrochl /100 MG Willy españa MD Work Phone: Start: 03-23-2012 End: 03-23-2012 Total hysterectomy Preethi Burt MA Comment on above: Dr Jacob, menorrhag ia, ovaries remain Start: 06-30-2011 End: 07-03-2011 Us pelvic nonobstetric real-time image complete Hortensia Ching MD Work Phone: Start: 03-31-2011 End: 03-31-2011 Insj temp ndwellg bladder catheter simple Hortensia Ching MD Work Phone: Start: 03-19-2011 End: 03-19-2011 Ob care antepartum vag dlvr & Jigna Cornell ENVIRONMENTAL COMPLIANCE TECHNICIAN Work Phone: Start: 03-12-2011 End: 03-12-2011 Ob care antepartum vag dlvr & Jigna Cornell ENVIRONMENTAL COMPLIANCE TECHNICIAN Work Phone: Start: 03-05-2011 End: 03-05-2011 Ob care antepartum vag dlvr & Jigna Cornell ENVIRONMENTAL COMPLIANCE TECHNICIAN Work Phone: Start: 02-26-2011 End: 02-26-2011 Ob care antepartum vag dlvr & Sabrina Reynoso RN Work Phone: Start: 02-20-2011 End: 02-20-2011 Us preg uterus after 1st trimest 10/05 gestation Hortensia Ching MD Work Phone: Start: 02-17-2011 End: 02-20-2011 Ob care antepartum vag dlvr & Jigna Cornell ENVIRONMENTAL COMPLIANCE TECHNICIAN Work Phone: Start: 02-03-2011 End: 02-03-2011 Ob care antepartum vag dlvr & Jigna Cornell ENVIRONMENTAL COMPLIANCE TECHNICIAN Work Phone: Start: 01-06-2011 End: 01-06-2011 Ob care antepartum vag dlvr & Jigna Cornell ENVIRONMENTAL COMPLIANCE TECHNICIAN Work Phone: Start: 12-09-2010 End: 12-09-2010 Ob care antepartum vag dlvr & Jigna Cornell ENVIRONMENTAL COMPLIANCE TECHNICIAN Work Phone: Start: 11-11-2010 End: 11-11-2010 Ob care antepartum vag dlvr & Jigna Cornell ENVIRONMENTAL COMPLIANCE TECHNICIAN Work Phone: Start: 10-14-2010 End: 10-14-2010 Ob care antepartum vag dlvr & Jigna Cornell ENVIRONMENTAL COMPLIANCE TECHNICIAN Work Phone: Start: 09-16-2010 End: 09-16-2010 Ob care antepartum vag dlvr & Jigna Cornell ENVIRONMENTAL COMPLIANCE TECHNICIAN Work Phone: Start: 08-19-2010 End: 08-19-2010 Ob care antepartum vag dlvr & Jigna Cornell ENVIRONMENTAL COMPLIANCE TECHNICIAN Work Phone: Cholecystectomy Preethi Burt MA Cholecystectomy Vielka stewart RN Computerized axial tomography of brain Preethi Javed LAYNE Comment on above: Normal. 2006, 2007, 2008 H/O: hysterectomy S/P hysterectomy Prachi Childers ENVIRONMENTAL COMPLIANCE TECHNICIAN H/O: hysterectomy S/P hysterectomy Hortensia reis MD Work Phone: Ligation of fallopian tube C barrett Javed LAYNE Comment on above: 2010 Ligation of fallopian tube K serafin Sifuentes RN Microscopic examinat ion of cervical Papanicolaou smear Preethi Burt MA Comment on above: no longer needed Microscopic examinat ion of cervical Papanicolaou smear Vielka Sifuentes RN Tonsillectomy Preethi Herring A Tonsillectomy Vielka chan RN Plan of Treatment Date Care Activity Detail Author Start: 01-03-2025 End: 01-03-2025 Xtrnl pt activ ecg transmis w/r&i 30 days [facility]; [facility] Start: 03-02-2024 Rheumatoid factor quantitative RHEUMATOID FACTOR-QUANT (98893) Start: 02-Mar-2024 08:15-04:00 Request [facility] Start: 03-02-2024 Sedimentation rate r bc automated ESR (SED RATE) ([id number]) Start: 02-Mar-2024 08:15-04:00 [facility] Start: 03-02-2024 C-reactive protein C-REACTIVE PROTEIN ([id number]) Start: 02-Mar-2024 08:15-04:00 [facility] Start: 03-02-2024 Antinuclear antibodi es ronald RONALD (ANTINUCLEAR ANTIBODY) ([id number]) Start: 02-Mar-2024 08:14-04:00 Request [facility]; [employer]. Start: 03-02-2024 Acetylcholine Receptor Binding Antibody ([id number]) Start: 02-Mar-2024 08:14-04:00 Request [facility]; [employer]; [facility] Immunizations Immunization Date Immunization Notes Care Provider Cruz schulz 07-31-2016 influenza, injectabl e, quadrivalent, contains preservative Hortensia Ching MD Work Phone: [facility]; [employer] [facility] Comment on above: Site: Deltoid (Right )VIS Given: * Influenza - Inactivated (05/11/15) 07-31-2016 unknown vaccine or immune globulin Hortensia Ching MD Work Phone: [facility]; [employer] [facility] Payers Date Payer Category Payer Self-pay 2025 Unknown [id number] 1985 Unknown [id number] 2.16.8 [id number] 1985 Unknown [id number] 2.16.8 [id number] 1985 Unknown [id number] 2.16.8 [id number] 1985 Unknown [id number] 2.16.8 [id number] Private Health Insurance Unknown Unknown [id number] 2.16.8 [id number] Unknown [id number] 2.16.8 [id number] Unknown [id number] 2.16.8 [id number] Unknown [id number] 2.16.8 [id number] Unknown [id number] 2.16.8 [id number] Unknown [id number] 2.16.8 [id number] Social History Date Type Detail Facility Child[facility]renny) [facility] Tobacco Use: Tobacco Use: ; C urrent every day smoker. [employer]. Female [facility] [employer] [employer]. Work Phone: Smokes tobacco daily [employer]. Work Phone: Light tobacco smoker [employer]. Work Phone: Ex-smoker [employer]; [employer]. Work Phone: Goals Date Patient Goal Desired Activity /State 07-14-2018 07-14-2018 Clinical Note 12-30-2024 Note Date & Type Note Facility 12-30-2024 Note Discharge Instructio ns Discharge Summary [address] [address] [id number] 12/30/2024 Patient: XU PUCKETT Sex: Female : 1985 Age: 39y Thank you for visiting [facility]. You have been evaluated today by Gabe Abdi D.O. for the following condition(s): Principal Diagnosis Syncope of unknown cause. Acute migraine headache. No aura or status migrainosus. No poorly controlled headache or post traumatic headache. INSTRUCTIONS No restrictions to activity. No dietary restrictions. (Rest today, drink plenty of fluids. Avoid sudden position changes or standing quickly. Return for care right away if you have another episode of passing out or if you develop any new symptoms.). Follow-up: Follow up with your healthcare provider in three days. You have been given the following additional information: Fainting: Uncertain Cause Patient Signature 1 of 5 Discharge Instructions Facility [facility] Date/Time General Instructions with [employer] [address] [address] [id number] 12/30/2024 Patient: XU PUCKETT Sex: Female : 1985 Age: 39y Thank you for visiting [facility]. You have been evaluated today by Gabe Abdi D.O. for the following condition(s): Principal Diagnosis Syncope of unknown cause. Acute migraine headache. No aura or status migrainosus. No poorly controlled headache or post traumatic headache. INSTRUCTIONS No restrictions to activity. No dietary restrictions. (Rest today, drink plenty of fluids. Avoid sudden position changes or standing quickly. Return for care right away if you have another episode of passing out or if you develop any new symptoms.). Follow-up: Follow up with your healthcare provider in three days. ADDITIONAL INFORMATION 2 of 5 Discharge Instructions Fainting: Uncertain Cause Fainting (syncope) is a temporary loss of consciousness. It's often associated with a loss of postural tone. It's also called passing out. It occurs when blood flow to the brain is less than normal. There are other causes of fainting, too. Near-fainting (near-syncope) is very similar to fainting, but you don't fully pass out. Most commonly, fainting is for reasons that aren't necessarily serious or life-threatening, although you may still get injured. Common triggers of less serious types of fainting include: Sudden fear Pain Nausea Emotional stress Overexertion Suddenly standing up after sitting or lying for a long time can also cause fainting. More serious causes of fainting include: Very slow or very fast heartbeat (arrhythmia) Other types of heart disease, such as heart valve disease or coronary artery disease Dehydration Loss of blood Seizure Stroke Ruptured blood vessel in the brain Taking too much high blood pressure medicine can also cause low blood pressure and fainting. Your healthcare provider may be able to tell why you are fainting by reviewing your health history and hearing about your fainting episodes. If the cause of your fainting remains unknown or if your healthcare provider is concerned about a more serious cause he or she may determine that you need further testing. Testing may include: Echocardiogram. This will take ultrasound pictures of your heart to evaluate the heart's structure and function Stress test. This will check for abnormalities with you heart function or heart rhythm with exercise 3 of 5 Discharge Instructions Tilt table test. This evaluates for changes in blood pressure or heart rate when going from a laying position to standing Heart monitoring. This will evaluate for heart rhythms that are too slow or too fast that may be the cause of your fainting Lab tests. This can check for abnormalities in electrolytes, blood counts and other things Home care Follow these guidelines when caring for yourself at home: Rest today. You may go back to your normal activities when you are feeling back to normal. It's best to stay with someone who can check on you for the next 24 hours to watch for another episode of fainting. If you become lightheaded or dizzy, lie down right away and try to prop your feet above the level of your head. Or sit with your head between your knees. Because the provider doesn't know the exact cause of your fainting or near-fainting spell, it's possible for you to have another spell without warning. Because of this, don't drive a car or operate dangerous equipment until your healthcare provider says it's OK to do so. Don't take a bath alone. Use a shower instead. Don't swim alone until your healthcare provider says that you are no longer in danger of having another fainting spell. Follow-up care Follow u (more content not included)... [facility] Summary Purpose Family History No Family History Records Found Arthritis Status:Active Comments:Mother. Family Members In General. Coronary Artery Disease Status:Active Comments :Family Members In General. Diabetes Mellitus Type II Status:Active Commen ts:grandfather Hypertension Status:Active Comments:grandmo ther Thyroid problems Status:Active Comments:Family Members In General. Arthritis Status:Active Comments:Mother. Family Members In General. Coronary Artery Disease Status:Active Comments :Family Members In General. Diabetes Mellitus Type II Status:Active Commen ts:grandfather Hypertension Status:Active Comments:grandmo ther Thyroid problems Status:Active Comments:Family Members In General. Arthritis Status:Active Comments:Mother. Family Members In General. Coronary Artery Disease Status:Active Comments :Family Members In General. Diabetes Mellitus Type II Status:Active Commen ts:grandfather Hypertension Status:Active Comments:grandmo ther Thyroid problems Status:Active Comments:Family Members In General. Arthritis Status:Active Comments:Mother. Family Members In General. Coronary Artery Disease Status:Active Comments :Family Members In General. Diabetes Mellitus Type II Status:Active Commen ts:grandfather Hypertension Status:Active Comments:grandmo ther Thyroid problems Status:Active Comments:Family Members In General. Arthritis Status:Active Comments:Mother. Family Members In General. Coronary Artery Disease Status:Active Comments :Family Members In General. Diabetes Mellitus Type II Status:Active Commen ts:grandfather Hypertension Status:Active Comments:grandmo ther Thyroid problems Status:Active Comments:Family Members In General. Arthritis Status:Active Comments:Mother. Family Members In General. Coronary Artery Disease Status:Active Comments :Family Members In General. Diabetes Mellitus Type II Status:Active Commen ts:grandfather Hypertension Status:Active Comments:grandmo ther Thyroid problems Status:Active Comments:Family Members In General. Arthritis Status:Active Comments:Mother. Family Members In General. Coronary Artery Disease Status:Active Comments :Family Members In General. Diabetes Mellitus Type II Status:Active Commen ts:grandfather Hypertension Status:Active Comments:grandmo ther Thyroid problems Status:Active Comments:Family Members In General. Arthritis Status:Active Comments:Mother. Family Members In General. Coronary Artery Disease Status:Active Comments :Family Members In General. Diabetes Mellitus Type II Status:Active Commen ts:grandfather Hypertension Status:Active Comments:grandmo ther Thyroid problems Status:Active Comments:Family Members In General. Arthritis Status:Active Comments:Mother. Family Members In General. Coronary Artery Disease Status:Active Comments :Family Members In General. Diabetes Mellitus Type II Status:Active Commen ts:grandfather Hypertension Status:Active Comments:grandmo ther Thyroid problems Status:Active Comments:Family Members In General. Arthritis Status:Active Comments:Mother. Family Members In General. Coronary Artery Disease Status:Active Comments :Family Members In General. Diabetes Mellitus Type II Status:Active Commen ts:grandfather Hypertension Status:Active Comments:grandmo ther Thyroid problems Status:Active Comments:Family Members In General. Arthritis Status:Active Comments:Mother. Family Members In General. Coronary Artery Disease Status:Active Comments :Family Members In General. Diabetes Mellitus Type II Status:Active Commen ts:grandfather Hypertension Status:Active Comments:grandmo ther Thyroid problems Status:Active Comments:Family Members In General. Arthritis Status:Active Comments:Mother. Family Members In General. Coronary Artery Disease Status:Active Comments :Family Members In General. Diabetes Mellitus Type II Status:Active Commen ts:grandfather Hypertension Status:Active Comments:grandmo ther Thyroid problems Status:Active Comments:Family Members In General. Arthritis Status:Active Comments:Mother. Family Members In General. Coronary Artery Disease Status:Active Comments :Family Members In General. Diabetes Mellitus Type II Status:Active Commen ts:grandfather Hypertension Status:Active Comments:grandmo ther Thyroid problems Status:Active Comments:Family Members In General. Advance Directives No Advanced Directives Records FoundNo Advanced Directives Records FoundNo Advanced Directives Records FoundNo Advanced Directives Records Found Additional Source Comments INFORMATION SOURCE (unrecogn ized section and content) DATE CREATED AUTHOR 12/02/2018 [facility] DATE CREATED AUTHOR AUTHOR'S ORGANIZ ATION 03/06/2024 [facility] DATE CREATED AUTHOR AUTHOR'S ORGANIZ ATION 01/10/2025 [facility] DATE CREATED AUTHOR AUTHOR'S ORGANIZ ATION 08/17/2025 [facility] FOR RECORDS PERTAINING TO PATIENTS WHO ARE OR HAVE BEEN ENROLLED IN A CHEMICAL DEPENDENCY/SUBSTANCEABUSE PROGRAM, SOME INFORMATION MAY BE OMITTED. This clinical summary was aggregated from multiple sources. Caution should be exercised in using it in the provision of clinical care. This summary normalizes information from multiple sources, and as a consequence, information in this document may materially change the coding, format and clinical context of patient data. In addition, data may be omitted in some cases. CLINICAL DECISIONS SHOULD BE BASED ON THE PRIMARY CLINICAL RECORDS. [employer] provides no warranty or guarantee of the accuracy or completeness of information in this document.
== END | disposition home or self-care (01) ==
LOC: OPMRI 07:03
DX: R41.3 Other amnesia (principal); R40.4 Transient alteration of awareness; G43.909 Migraine, unspecified, not intractable, without status migrainosus
CPT/HCPCS: 70553; A9575